=== PATIENT | male | born 1950 | race Caucasian/White ===

== ENCOUNTER → 2019-10-27 09:25 | Outpatient (CLI) | payer MEDICARE, SELFPAY ==
--- NOTE | ~2019-10-27 | CT_ITS ---
EXAMINATION: CT brain wo con EXAM DATE: 10/27/2019 09:43 INDICATION: Frequent falls. Dizziness. TECHNIQUE: Spiral CT of the head was performed without contrast. Axial, coronal and sagittal images were reviewed. The dose-length product (DLP) for this examination was 674.51 mGy-cm. The exposure w as tailored according to patient size, and iterative reconstruction (ASIR) was used as additional dos e reduction technique. Comparison is made to prior examination from 04/06/2018. FINDINGS: There is no acute intraparenchymal hemorrhage. No evidence of intraparenchymal brain mass lesion. No evidence of acute infarction. Please note that initial head CT has limited sensitivity f or small or acute infarctions. There is mild periventricular and subcortical hypodensity, nonspecific but probably related to small vessel ischemic disease. There is moderate prominence of the sulci a nd ventricles related to cerebral atrophy. There is intracranial carotid arteriosclerosis. There a re no extra-axial collections. There is no mass effect or midline shift. The orbits are unremarkabl e. Soft tissue is unremarkable. The visualized sinuses and mastoid air cells are well aerated. IMPRESSION: 1. No acute intracranial findings. 2. Chronic age related findings. Reviewed, dictated and finalized at location B.
== END ==
DX: R29.6 Repeated falls (principal); R42 Dizziness and giddiness
CPT/HCPCS: 70450

== ENCOUNTER 2020-05-02 08:00 | Outpatient (RCR) | payer MEDICARE, SELFPAY ==
--- NOTE | 2020-04-05 15:06 | PTOPEVAL ---
Thank you for referring Shaun Magallanes to [facility].? The patient is scheduled to be seen for therapy?2 x/week for 6 weeks. Please review, sign, date and return this plan of care СВЕТЛАНА. I agree with and certify that the following plan of care is medically necessary. Referring Physician Date Attending Provider: Jyotsna Weber Referring Provider: Jyotsna Weber *PT Outpatient Evaluation Start: 04/05/20 13:56 Freq: Status: Active Protocol: Document 04/05/20 13:58 SANJUANA (Rec: 04/05/20 15:01 CAP [id number]) Therapy Assessment Status Assessment Status Assessment Status Evaluation Outpatient Past Medical History Past Medical History Source of Past Medical History Patient,Recalled from Previous Visit, Confirmed with Patient /Family Neurological History Hx Neurological Disorders No Significant History Respiratory History Hx Sleep Apnea Yes: mild no CPAP Genitourinary History Hx Benign Prostatic Hyperplasia Yes Musculoskeletal History Hx Arthritis Yes Hx Orthopedic Surgery Yes: left knee arthroscopic for meniscus, right knee arthroscopic surgery Hx Other Musculoskeletal Disorders Yes: stem cell injection Endocrine History Hx Endocrine Disorders No Significant History Evaluation Information Problem Diagnosis ovidio knee OA Cause chronic Additional Evaluation Detail Stem cell injection both knees 2 yrs ago Subjective Information States his knee pain has Query Text:As Reported By Patient/ progressed in the past 3 Family months. He has increased pain and difficulty with transfers. He does have difficulty with negotiating steps. He is able to walk with min restriction. He use a walker for assisting in/out of the tub. Does not use the walker or cane normally. After the injections he was walking on the TM for 15' and riding a bike. He has not been since COVID. Prior Level of Function Home Setting Home Type House,Multiple Levels Environmental Barriers Stairs, Greater than 4,Stairs, Threshold Mobility Assistive Devices (Used Last 3 Cane,Walker, Standard,Walker, Months) Wheeled Comments Additional Prior Level of Function 15 steps to basemetnt Comments Pain A
--- NOTE | 2020-04-11 12:43 | PCPTNOTE ---
Patient called & cancelled scheduled appointment this date due to not feeling well.
--- NOTE | 2020-05-02 09:14 | PTOPEVAL ---
Thank you for referring Shaun Magallanes to [facility].?Pt has been seen for 7 therapy visits from 04/05/20 to 05/02/20 to address impairments related to knee pain. He demonstrates improved leg strength, improved knee range, improved functional mobility. He demonstrates independence with his home exercise program at this time. He has achieved his therapy goals at this time. He has reached maximal potential with skilled therapy services at this time. DC skilled therapy services at this time. Please review, sign, date and return this discharge note СВЕТЛАНА. I agree with and certify that the following plan of care is medically necessary. Referring Physician Date Attending Provider: Jyotsna Weber Referring Provider: Jyotsna Weber Physical Therapy Progress Note Problem Diagnosis ovidio knee OA Cause chronic Additional Evaluation Detail Stem cell injection both knees 2 yrs ago Subjective Information He reports improved knee pain Query Text:As Reported By Patient/ at rest and with mobility task Family . States he is walking more and performing the steps 2x/ day at home with less difficulty. He is able to get out the chair or low surface better. He is walking outside at least 1-2 blocks with uneven surface. Denied LOB at home with task. Pain Assessment Left Knee(s) Reported Pain Level 0 Pain Description Aching Lowest Pain Intensity 0 Greatest Pain Intensity 3 Right Knee(s) Reported Pain Level 0 Greatest Pain Intensity 0 Lower Extremity Range of Motion Left Knee Flexion Range of Motion - Active 110 Knee Extension Range of Motion - Active -2 Query Text: Knee Range of Motion Limitations Pain Right Knee Flexion Range of Motion - Active 127 Knee Extension Range of Motion - Passive -2 Lower Extremity Strength Right Hip Flexion Strength 4+ Good + Hip Extension Strength 4+ Good + Hip Abduction Strength 3+ Fair + Left Hip Flexion Strength 4+ Good + Hip Extension Strength 4+ Good + Hip Abduction Strength 3+ Fair + Knee Strength Left Knee Flexion Strength 4+ Good + Knee Extension Strength 4+ Good + Right Knee Flexion Strength 4+ Good + Knee Extension Strength 4+ Good + Balance Assessment DAHL Balance Evaluation Total Score (48/56 points) Comments SLS: right 3 sec, left 2 sec Timed Up and Go Test (TUG) (Seconds) 19 Assistive Devices None 5 Time Sit to Stand Time in Seconds 39 5 Time Sit to Stand Comments with UE support, slow movement
== END 2020-05-02 12:40 | disposition home or self-care (01) ==
LOC: ANHPT 08:00
DX: M17.0 Bilateral primary osteoarthritis of knee (principal)
CPT/HCPCS: 97110; 97112; 97116; 97162; 97530

== ENCOUNTER 2020-12-18 12:04 | Outpatient (RCR) | payer MEDICARE, SELFPAY ==
--- NOTE | 2020-12-18 13:15 | PTOPEVAL ---
PHYSICAL THERAPY EVALUATION AND PLAN OF CARE Thank you for referring Shaun Magallanes to [facility].? The patient is scheduled to be seen for therapy 1x/week for 5 weeks. Please review, sign, date and return this plan of care СВЕТЛАНА. I agree with and certify that the following plan of care is medically necessary. Referring Physician Date Evaluation Outpatient Past Medical History Neurological History Hx Neurological Disorders No Significant History Respiratory History Hx Sleep Apnea Yes: mild no CPAP Genitourinary History Hx Benign Prostatic Hyperplasia Yes Musculoskeletal History Hx Arthritis Yes Hx Orthopedic Surgery Yes: left knee arthroscopic for meniscus, right knee arthroscopic surgery Hx Other Musculoskeletal Disorders Yes: stem cell injection Diagnosis gait disorder, frequent falls Onset ongoing Subjective Information Reports that he fell 3 weeks Query Text:As Reported By Patient/ ago. He has a history of Family frequent falls. Reports that after the fall he was experiencing a significaint increase in knee pain. He notes that he is not quite back to baseline yet, but he is feeling better overall. Uses his walker at night and uses it next to the bathtub to assist with balance when drying off and getting dressed Self Report Pain Assessment Bilateral Knee(s) Reported Pain Level 1 Pain Description Aching Greatest Pain Intensity 6 Pain Score Pain Score 1: Self Report Interventions Used Interventions Used By Clinicians Exercise Lower Extremity Muscle Strength Testing Hip Strength Bilateral Hip Flexion Strength 5 Normal Hip Extension Strength 3 Fair Hip Abduction Strength 3 Fair Knee Strength Bilateral Knee Flexion Strength 4+ Good + Knee Extension Strength 4+ Good + Ankle Strength Bilateral Ankle Dorsiflexion Strength 5 Normal Balance Assessment Meyers Balance Assessment Sitting to Standing Several Tries w/Hands Unsupported Stance Ability Supervision- 2 minutes Sitting Unsupported, Feet on Floor Safely- 2 minutes Standing to Sitting Assist, Control w/Hands Transfer Ability Safely, Hand Use Unsupported Stance- Eyes Closed Supervision, 10 seconds Unsupported Stance- Feet Together Independent, 1 minute Reaching Forward while Standing Safely, 5 inches wardrobe supervisor Object From Floor Supervision Look Behind Shoulder - Standing
--- NOTE | 2020-12-31 08:06 | PCPTNOTE ---
PHYSICAL THERAPY DISCHARGE NOTE Patient:Shaun Magallanes Date of :1950 Patient called and cancelled his appointments due to being admitted for a roasterman hospital stay, therefore (he/she) will be discharged at this time. Patient?s initial visit was on 12/18/2020 had 1 visits. Thank you for referring this patient to [facility]. Please review, sign, date and return this discharge summary СВЕТЛАНА. I have been updated about the patient's current status and I agree with discharge from the above service at this time. Referring Physician Date
== END 2020-12-31 15:18 | disposition home or self-care (01) ==
LOC: ANHPT 12:04
DX: R26.9 Unspecified abnormalities of gait and mobility (principal); R29.6 Repeated falls
CPT/HCPCS: 97162

== ENCOUNTER 2021-09-05 09:18 | Emergency (ER) | payer MEDICARE, SELFPAY ==
--- NOTE | ~2021-09-05 | CT_ITS ---
EXAMINATION: CT brain wo con DATE: 09/05/2021 09:45 INDICATION: Status post fall. Laceration to the liver. TECHNIQUE: Computed tomography (CT) of the head was performed without intravenous contrast. The dose- length product was 605.33 mGy-cm. Automated exposure control and iterative reconstruction technique w ere employed. COMPARISON: CT dated 10/27/2019 FINDINGS: No acute intracranial hemorrhage, infarction, mass or mass effect. No ventriculomegaly or m idline shift. Basilar cisterns are patent. There is intracranial atherosclerosis. There is mild mucos al thickening of the paranasal sinuses. Midline sagittal images are unremarkable. No depressed skull fractures. There are scattered mild periventricular and subcortical white matter changes, most likely related to small vessel ischemic disease (microangiopathy). IMPRESSION: 1. No acute intracranial abnormality. 2: Chronic age-related findings. Reviewed, dictated and finalized at location A.
[2021-09-05 09:23] VITALS: BP 146/86; PULSE 116; RESP 16; TEMP 36.5; O2SAT 98
--- NOTE | 2021-09-05 09:30 | PC.NURSE ---
per YELENA Bashir via verbal order read-back, apply LET to lip.
[2021-09-05] MEDS: LIDOCAINE, EPINEPHRINE, TETRACAINE VISCOUS SOLN 3 ML (09:37)
--- NOTE | 2021-09-05 09:40 | ED.WOUNDLAC ---
HPI - Wound/Laceration General Chief Complaint: Wound/Laceration Stated Complaint: fall, cut lip Time Seen by Provider: 09/05/21 09:29 Source: patient History of Present Illness HPI narrative: Patient presents with a lip laceration. Patient ports he is going to the restroom last night when his knees gave out and he fell and struck his face on the ground. Reports he has bad knees and they will occasionally give out but is usually able to catch himself. He denies any prodrome prior to his fall such as chest pain lightheadedness dizziness or shortness of breath. Denies any loss of consciousness with use of blood thinners. Denies any changes in vision fractured teeth focal numbness or weakness. Monitor symptoms at home but then when he looked in the mirror this morning he noted a injury to his lip and thought maybe he needed stitches so he came to the ER. Patient preorts up-to-date on his tetanus Related Data Allergies Allergy/AdvReac Type Severity Reaction Status Date / Time naproxen Allergy Unknown SWELLING,FL Verified 09/05/21 09:23 USHING Review of Systems Review of Systems: CONSTITUTIONAL: Denies fever, chills, or sweats. EYES: Denies visual changes, redness, or discharge. ENT: Denies rhinorrhea, congestion, sore throat, or otalgia. CARDIOVASCULAR: Denies chest pain, palpitations, or edema. RESPIRATORY: Denies cough or dyspnea. GASTROINTESTINAL: Denies abdominal pain, nausea, vomiting, or diarrhea. GENITOURINARY: Denies dysuria or hematuria. SKIN: Denies rash or itching. MUSCULOSKELETAL: Denies back pain, joint pain, or myalgia. NEUROLOGIC: Denies headache, numbness, dizziness, or weakness. PSYCHIATRIC: Denies anxiety or depression. All systems reviewed & are unremarkable except as noted in HPI and below PMFSH Past Medical History Medical History (Updated 09/05/21 @ 11:29 by Misael Bashir MD) Hypertension Social History Social History (Updated 09/05/21 @ 09:41 by Misael Bashir MD) Substance use: never Exam Narrative: GENERAL: Well-appearing, well-nourished, and in no acute distress. HEAD: Normocephali EYES: PERRLA and EOMI. ENT: Nares clear, no rhinorrhea or epistaxis. Mucous membranes moist. Laceration to the mucosal membrane of the lower lip midline there is no involvement of the vermilion border no fractured teeth appreciated no focal bony tenderness on the face other than lip laceration no open or draining wounds NECK: Supple. No masses. No JVD EXTREMITIES: Normal range of motion. No edema. SKIN: Warm, dry, no rash. NEURO: No focal deficits. Alert and oriented x3. PSYCH: Normal mood and affect. Course Reevaluation(s) Reevaluation #1: Patient resting calmly results and plan reviewed with patient. Patient is comfortable outpatient plan. Date: 09/05/21 Time: 11:28 Vital Signs Vital signs: Vital Signs Temperature 36.5 C 09/05/21 09:23 Pulse Rate 116 H 09/05/21 09:23 Respiratory Rate 16 09/05/21 09:23 Blood Pressure 146/86 H 09/05/21 09:23 Pulse Oximetry 98 09/05/21 09:23 Temperature 36.5 C 09/05/21 09:23 Pulse Rate 116 H 09/05/21 09:23 Respiratory Rate 16 09/05/21 09:23 Blood Pressure 146/86 H 09/05/21 09:23 Pulse Oximetry 98 09/05/21 09:23 Procedures Laceration Laceration 1: Date: 09/05/21 Time: 11:21 Site: lip Size (cm): 1 Description: linear and clean Depth: simple, single layer Local Anesthetic: none Pre-repair: wound explored ====== Skin Level ====== Skin layer closed with: other (chromic gut) Size (cm): 5-0 Number of sutures: 1 Technique: simple, interrupted ====== Subcutaneous Layer ====== ====== Muscle Layer ====== ====== Tendon Layer ====== MDM - Wound/Laceration MDM Narrative Medical decision making narrative: H&P as above, vss, pt looks clinically well, exam isolated laceration on the lip not involving vermilion borders no
--- NOTE | 2021-09-05 09:43 | PC.NURSE ---
Patient to CT
== END 2021-09-05 11:40 | disposition home or self-care (01) ==
PROVIDERS: Emergency Provider Emergency Medicine
DX: S01.511A Laceration without foreign body of lip, initial encounter (principal); I10 Essential (primary) hypertension; W18.39XA Other fall on same level, initial encounter
CPT/HCPCS: 12011; 70450; 99284

== ENCOUNTER → 2022-02-26 12:20 | Outpatient (CLI) | payer MEDICARE, SELFPAY ==
--- NOTE | ~2022-02-26 | MR_ITS ---
MRI of the brain Clinical History: Disorientation Technique: Axial and sagittal T1-weighted images were acquired. These were followed by axial T2-weigh brandin, diffusion weighted, gradient, and FLAIR images. Following intravenous administration of 20 cc Mu ltiHance gadolinium, T1-weighted fat-sat imaging was performed in the axial and coronal planes. Findings: There is no acute infarct, intracranial hemorrhage, or mass lesion. There are mild chronic white matter changes in the periventricular white matter bilaterally. Ventricles and subarachnoid spaces are prominent. Orbits are unremarkable. Paranasal sinuses and mast oid air cells are clear. Major intracranial flow voids appear intact. Sagittal midline structures are intact. No abnormal postcontrast enhancement identified. IMPRESSION: Minimal chronic white matter changes, otherwise unremarkable exam. Reviewed, dictated and finalized at [facility]. E [employer]
== END ==
DX: R26.9 Unspecified abnormalities of gait and mobility (principal)
CPT/HCPCS: 70553; A9577

== ENCOUNTER 2022-05-22 07:34 | Outpatient (CLI) | payer MEDICARE, SELFPAY ==
[2022-05-22 10:04] LABS: Urine Cotinine NEGATIVE
== END 2022-05-22 07:35 | disposition home or self-care (01) ==
PROVIDERS: Visit Provider Orthopaedic Surgery
DX: Z01.818 Encounter for other preprocedural examination (principal); M17.11 Unilateral primary osteoarthritis, right knee
CPT/HCPCS: 80307; 86850; 86900; 86901; 87081

== ENCOUNTER 2022-06-03 14:36 | Inpatient (IN) | payer MEDICARE, SELFPAY ==
--- NOTE | 2022-05-22 08:16 | PC.NURSE ---
Report to the Outpatient Waiting Room, entrance under the green pavilion located off [facility], at time __0600 on datE__06/02/22 . Planned Procedure Time: __729 . Time changes happen often and if your time is changed the preop area will call you the afternoon before. - You and your visitor will be asked to self-screen and do not enter if you have any COVID symptoms. - Only one visitor is requested with a max of two and NO children visitors are allowed at this time. - The patient visitor may be requested to leave or wait in car when not with patient due to distancing restrictions. - A mask is optional within the hospital at this time. Patients may have clear liquids (water, carbonated beverages, clear teas, apple juice) until 3 hours prior to surgery with a maximum of 20 ounces. - No food from midnight until time of surgery - Infants may have breast milk until 4 hours before surgery, formula 6 hours prior to surgery. - Children will be allowed to drink immediately following surgery. If applicable, please bring a bottle or sippy cup to assist with drinking. Juice, water, soda, and popsicles are readily available. For infants on formula, please bring formula the day of surgery. Pacifiers are allowed. Take the following medications with a SIP of water the morning of surgery: ____AMLODIPINE,MEMANTINE DO NOT STOP ANY OF YOUR OTHER PRESCRIPTION MEDICATIONS PRIOR TO SURGERY ?EXCEPT THE FOLLOWING Medications to discontinue per physician ALL VITAMINS AND SUPPLEMENTS 3 DAYS PRE OP. LAST DOSE 05/29/22 Please no make-up, nail swedish, hairspray, perfume, deodorant, or body powder the day of surgery. No jewelry (including any body piercings) or valuables the day of surgery, leave them at home. Please take a shower or bath the night before, or the morning of, surgery with an antibacterial soap. Wear comfortable, loose fitting clothing. Children are encouraged to wear pajamas. - Jewelry must be removed prior to entering the operating room. Rings and piercings that are not removed may be cut off. - The hospital will not accept responsibility for valuables. - Please leave all valuables, including medications, at home the day of surgery. If you are going home after surgery, a licensed day haul or farm charter bus driver must drive you home. - NO public transportation without another adult if you receive anesthesia. - We recommend that an adult stay with you for 24 hours following discharge. - We also recommend that you do not drive, make important decision, drink alcoholic beverages, or take any drugs that were not prescribed by your health care provider for at least 24 hours after your discharge time. Follow any additional instructions given to you from your surgeon. If you or anyone in your household have experienced Covid symptoms in the past week, please notify your surgeon or the nurse liaison at the phone number below for possible testing. VERBAL AND WRITTEN instructions given to __PATIENT and asked if any additional questions and then verbalized understanding. Patient advised to call surgeon office or pre surgery nurse liaison [phone] if any additional questions.
[2022-05-22 08:43] VITALS: BP 127/83; PULSE 87; RESP 18; TEMP 36.7; O2SAT 99; BMI 26.9
[2022-06-02] VITALS (14 sets, daily range): BP systolic 106–139; BP diastolic 57–91; PULSE 80–121; RESP 11–17; TEMP 36.2–36.8; O2SAT 95–100; BMI 25.7
--- NOTE | 2022-06-02 06:54 | WPDANESEPPF ---
Anes - Initial Pre Proc Eval Procedure: Operation Date: 06/02/22 07:30 Proposed Procedures p Right Total Knee Arthroplasty - Magno Arrington MD Date/Time: 06/02/22 06:54 Surgeon: Magno Arrington MD Pre Op Diagnosis: Oa right knee Patient Data Age: 71 Gender: M Height: 1.93 m Weight: 100.3 kg Last Vital Signs Temp 36.7 C 05/22/22 08:43 Pulse 87 05/22/22 08:43 Resp 18 05/22/22 08:43 BP 127/83 05/22/22 08:43 Pulse Ox 99 05/22/22 08:43 O2 Del Method Room Air 05/22/22 08:43 Allergies Allergy/AdvReac Type Severity Reaction Status Date / Time naproxen Allergy Unknown SWELLING,FL Verified 06/02/22 06:38 USHING Home Medications Medication Instructions Recorded Confirmed Type B6 0.85 mg-folic 200 1 tablet PO DAILY 11/20/21 05/27/22 History [id number]-kgowswppampl oral chewable tablet (Neuriva Plus) alfuzosin 10 mg tablet,extended 10 mg PO DAILY 11/20/21 05/27/22 History release 24 hr allopurinol 300 mg tablet 150 mg PO DAILY 11/20/21 06/02/22 History amiloride 5 mg tablet 5 mg PO DAILY 11/20/21 06/02/22 History amlodipine 2.5 mg tablet 2.5 mg PO DAILY 11/20/21 06/02/22 History ascorbic acid (vitamin C) 1,000 mg 1 g PO DAILY 11/20/21 05/27/22 History capsule cholecalciferol (vitamin D3) 25 25 mcg PO DAILY 11/20/21 05/27/22 History mcg (1,000 unit) capsule diazepam 10 mg tablet 10 mg PO TID PRN Insomnia 11/20/21 06/02/22 History ibuprofen 200 mg capsule 200 mg PO Q6H PRN Pain 11/20/21 06/02/22 History mecobalamin (vitamin B12) 1,000 1,000 mcg PO DAILY 11/20/21 05/27/22 History mcg lozenges montelukast 10 mg tablet 10 mg PO DAILY 11/20/21 05/27/22 History nortriptyline 25 mg capsule 25 mg PO DAILY 11/20/21 06/02/22 History rosuvastatin 20 mg tablet 20 mg PO DAILY 11/20/21 06/02/22 History vitamin E (dl, acetate) 180 mg 180 mg PO DAILY 11/20/21 05/27/22 History (400 unit) capsule memantine 5 mg tablet 5 mg PO QAM 04/24/22 06/02/22 History turmeric 400 mg capsule 400 mg PO DAILY 04/24/22 05/27/22 History zinc gluconate 50 mg tablet 50 mg PO DAILY 04/24/22 05/27/22 History esomeprazole magnesium 20 mg 20 mg PO PRN PRN Heartburn 05/22/22 05/27/22 History capsule,delayed release (Nexium) rivaroxaban 10 mg tablet (Xarelto) 10 mg PO DAILY 14 days #14 tabs 05/27/22 05/27/22 Rx Patient hx anesthesia problems: none Family hx anesthesia problems: none Results Review: All pre-operative results and documents have been reviewed as part of the pre-operative evaluation. [facility] Past Medical History Medical History (Updated 06/02/22 @ 07:05 by Chandana Raya DO) Degenerative arthritis of knee, bilateral Hyperlipidemia Hypertension Surgical History Surgical History History of hernia repair Family History Family History Father Cancer Mother Cancer Sibling Cancer Social History Social History Years smoked: 55 Smoking status: Former smoker Tobacco type: cigarettes Smoking end date: 04/20/22 Additional smoking assessment comments: DENIES ANY FORM OF TOBACCO USE Alcohol intake: current Substance use: never Living arrangements: with family Spiritual care concerns: No Anes - Eval Final PreProcedure Day of Procedure 06/02/22 06:54 Patient weight: overweight Heart: regular rate and rhythm Lungs: clear to auscultation Airway: Mallampati scale class II Neurological: alert and oriented Last oral intake: >/= 8 hours ASA classification: III Emergent: no Anesthetic plan: proceed Anesthesia type and monitoring: regional spinal and standard monitoring Results Review: All pre-operative results and documents have been reviewed as part of the pre-operative evaluation. Informed Consent: The patient's anesthetic plan and its attendant risks and benefits w
[2022-06-02] MEDS: ACETAMINOPHEN 500 MG TABLET 1000 MG PO (06:56)
[2022-06-02] MEDS: LACTATED RINGERS 1,000 ML 30 ML IV CONT ×2 (07:00→10:08)
[2022-06-02] MEDS: TRANEXAMIC ACID 1,000MG/ISO100 1,000 MG/100 ML BAG 200 MG IVPB (07:05)
--- NOTE | 2022-06-02 07:20 | WPDHPUPDATE1 ---
History and Physical Update Update Date/Time: 06/02/22 07:20 History and Physical has been reviewed, including an updated exam of the patient. There are NO changes in the patient's condition. Risks, benefits, and alternatives have been discussed and questions answered. Patient agrees to proceed with procedure.
--- NOTE | 2022-06-02 07:30 | WPDANESPNB ---
Anes - Peripheral Nerve Block Date/Time: 06/02/22 07:30 I have discussed with the patient/family/POA the placement of a peripheral nerve block for post-operative pain management, including associated risks, benefits, complications, and side effects. Alternative methods of post-operative analgesia were detailed. Questions were solicited and answers provided to the satisfaction of the patient/family/POA. Time-Out: A pre-procedural Time-Out was completed immediately before starting the procedure and confirmed: Patient Identification, Site, Procedure, Patient Position and the Availability of Requisite Equipment. Clinical Indications: Acute post-operative pain management requested by the operative surgeon. Nerve Block Insertion Note Anes-nerve block: adductor canal right Patient position: supine Skin prep: chlorhexidine Needle: 22 gauge, stimulating, insulated echogenic needle. Needle length: 80 mm Technique: ultrasound Injectate: bupivacaine 0.5% with epi 5 mcg/ml (30cc - no epi) Observations: tolerated well Complications: none Procedure start time:: 724 Procedure end time:: 727
[2022-06-02] MEDS: ceFAZolin 2 GM/D5W 50 ML 2 GM/50 ML BAG IVPB ×3 (07:33→21:57)
[2022-06-02] MEDS: GENTAMICIN BONE CEMENT REFOBACIN 1 EACH TOPICAL (08:24)
[2022-06-02] MEDS: ceFAZolin SODIUM 1 GM VIAL IV PUSH (09:06)
--- NOTE | 2022-06-02 09:59 | W.PM.PROC2 ---
Procedure Note - Detailed Date of Procedure 06/02/22 Pre-op Diagnosis Oa right knee Post-op Diagnosis Same Procedure Performed Right total knee replacement Surgeon Magno Arrington MD [employer] Jinny Rouse Anesthesia Regional and Spinal Description of Procedure The patient was identified and proper site identified. In the preop holding area the anesthesia team performed a right lower extremity sub sartorial block after which the patient was taken to the operating room and transferred to the OR table positioning supine taking care to pad the torso and extremities. After administration of a spinal anesthetic, a nonsterile tourniquet was placed high on the right thigh. The right lower extremity was prepped and draped in the usual sterile fashion. The extremity was exsanguinated and with the knee flexed tourniquet was inflated to 300 mmHg remaining up for approximately 60 minutes. An anterior midline incision was made and a modified medial parapatellar approach was used. Infra and suprapatellar fat pads were excised. Patella was resected leaving 15 mm thickness and prepared for the 34 round three peg component. Using the intramedullary guide the distal femur was cut in the proper orientation for the size 75 femoral component. Using the extramedullary guide the tibia was cut perpendicular to the long axis protecting collateral ligaments and popliteal structures. It was sized to a 83. Flexion and extension gaps were balanced. Trial reduction was undertaken and the weight-bearing line was noted to passed through the center of the joint. Proximal tibia was drilled and punched in the proper orientation for the real component. Trial components were removed. The bone surfaces were washed with pulsatile lavage and dried. The real components were cemented simultaneously. The knee was held in extension and the patella held clamped until the cement had cured. Excess cement was removed from the joint. After trialing it was determined that the 12 mm insert gave full range of motion from 0-120 degrees of flexion and the patella tracked in the femoral groove with no lift-off. After final lavage the joint the real size 12 insert was placed and secured with a locking bar. A Betadine and saline wash was placed into the wound and allowed to sit for approximately 3 minutes and then evacuated. Periarticular tissues were infiltrated with 60 cc of the arthroplasty solution. Surgicel powder was applied into the wound during the closure. The extensor mechanism was repaired with #2 Vicryl suture and 0 looped PDS suture. Subcu was reapproximated with 3-0 Monocryl, 2-0 Quill and tissue adhesive for the skin. A sterile dressing was applied. He tolerated the procedure well, was awakened and extubated, transferred to the bed and was taken to recovery area in stable condition. There were no known intraoperative complications. Perioperative antibiotics were administered. Estimated Blood Loss 150 Tourniquet Time 60 Drains No Packing No Pathology None sent Complications No immediate complications Condition Stable Disposition PACU [facility] Billing Surgery - Charge Forward: Surgery Billing ([id number])
--- NOTE | 2022-06-02 12:10 | ADMGEN ---
This patient, Shaun Magallanes, was admitted to 3 Med Surg Room 328-01 @ 1130. Patient/family oriented to hospital policies and general routines including ID bracelet, bed and alarms, visiting hours, pain management, procedures, bathroom and other care routines, personal items, smoking policy, room service/diet, and visiting hours. Information on how to activate the Rapid Response Team has been discussed. Patient/Family are encouraged to report perceived risks to care and to ask questions if they do not understand what they are told or what they should do.
--- NOTE | 2022-06-02 13:25 | WPDCN ---
Assessment and Plan Assessment and plan (1) Osteoarthritis of right knee: Code(s): M17.11 - Unilateral primary osteoarthritis, right knee Status: Acute Assessment and Plan: Postoperative day 0 status post right total knee arthroplasty. Wound care, pain control, DVT prophylaxis deferred to Dr. Arrington. (2) Hypertension: Code(s): I10 - Essential (primary) hypertension Status: Acute Assessment and Plan: Blood pressures were reviewed and they have been stable postoperatively. Continue antihypertensives and monitor daily. (3) Hyperlipidemia: Code(s): E78.5 - Hyperlipidemia, unspecified Status: Acute Assessment and Plan: Continue statin and check LFTs in a.m. (4) Benign prostatic hyperplasia: Code(s): N40.0 - Benign prostatic hyperplasia without lower urinary tract symptoms Status: Acute Assessment and Plan: Patient has not voided since Lange catheter was removed. Bladder scan to ensure he is not retaining urine.. Continue alfuzosin. (5) Gastroesophageal reflux disease: Code(s): K21.9 - Gastro-esophageal reflux disease without esophagitis Status: Acute Assessment and Plan: No acute issues. Continue PPI. (6) History of deep venous thrombosis: Code(s): Z86.718 - Personal history of other venous thrombosis and embolism Status: Acute Assessment and Plan: Will need aggressive DVT prophylaxis postoperatively. Plan Thank you for allowing us to participate in this patient's care. Please do not hesitate to contact us with any questions. HPI Data of Consult Date/Time: 06/02/22 13:25 Requesting Physician: Magno Arrington MD Consult Narrative Reason for consult: Postoperative medical management. Narrative: This is a 71-year-old male with history of left lower extremity DVT hypertension, hyperlipidemia, gastroesophageal reflux disease, benign prostatic hyperplasia, and osteoarthritis whom the hospitalist service has been consulted for management of his medical conditions postoperatively. Patient provides the following history. He has had longstanding pain in his right knee not amenable to conservative outpatient treatment and he elected for replacement today. His surgery was performed under regional and spinal anesthesia with no immediate complications documented an estimated blood loss of 150 mL. Postoperatively he has done well with physical therapy and has gotten up to the chair and ambulated to the bathroom with a walker. He continues to have a deep aching pain in that right knee which is worse with movement though it has been tolerable. Lange catheter was removed this afternoon and he has not urinated since that time though he initially had they were urged. He denies fever, chills, sweats, chest pain, shortness a breath, nausea, and vomiting. No paresthesias, skin color, or temperature changes distal to the surgical site. Review of Systems Review of Systems: Twelve systems were reviewed and are negative except for as per HPI. [facility] Past Medical History Medical History (Updated 06/02/22 @ 20:33 by Tana Montalvo PA-C) Benign prostatic hyperplasia Deep vein thrombosis of left lower extremity (2016) Degenerative arthritis of knee, bilateral Gastroesophageal reflux disease Gout Hyperlipidemia Hypertension Kidney stones Obstructive sleep apnea Mild sleep apnea. No longer using CPAP after weight loss. Short-term memory loss Surgical History Surgical History (Updated 06/02/22 @ 13:30 by Tana Montalvo PA-C) History of arthroscopy of right knee (2012) History of bilateral inguinal hernia repair History of meniscectomy of left knee History of tonsillectomy (1950) History of umbilical hernia repair Family History Family History Father Cancer Mother Cancer Sibling Cancer Social History Social History (Updated
[2022-06-02] MEDS: HYDROcodone/acetaminophen (*CRX) 5-325 MG TABLET 1 TAB PO (13:48)
[2022-06-02] MEDS: SODIUM CHLORIDE 0.9% IV 1,000 ML 125 ML IV CONT (13:50)
[2022-06-02] MEDS: HYDROcodone/acetaminophen (*CRX) 5-325 MG TABLET 2 TAB PO ×2 (15:49→21:43)
[2022-06-02] MEDS: NORTRIPTYLINE HCL 25 MG CAPSULE PO (21:43)
[2022-06-02] MEDS: DONEPEZIL HCL 5 MG TABLET PO (21:43)
[2022-06-02] MEDS: ROSUVASTATIN 10 MG TABLET 20 MG PO (21:43)
[2022-06-03] VITALS (8 sets, daily range): BP systolic 80–138; BP diastolic 52–90; PULSE 113–135; RESP 14–19; TEMP 36.1–37.4; O2SAT 94–99
--- NOTE | ~2022-06-03 | XR_ITS ---
EXAMINATION: XR_[id number]_CR DATE: 06/02/2022 10:21 INDICATION: Total right knee arthroplasty. Postop. TECHNIQUE: 2 views of right knee were obtained. COMPARISON: Right knee radiographs 11/20/2021 FINDINGS: There is a total right knee arthroplasty with patellar resurfacing in near-anatomic alignme nt. No fracture. There is gas in the knee joint and soft tissues, consistent with recent surgery. IMPRESSION: 1. Total right knee arthroplasty in near-anatomic alignment. Reviewed, dictated and finalized at location A.
--- NOTE | ~2022-06-03 | CT_ITS ---
EXAMINATION: CT brain wo con DATE: 06/08/2022 10:08 INDICATION: Transient alteration of awareness. TECHNIQUE: Computed tomography (CT) of the head was performed without intravenous contrast. The mA wa s adjusted according to patient size. Iterative reconstruction technique was employed. The dose-lengt h product was 681.00 mGy-cm. COMPARISON: Head CT 09/05/2021 FINDINGS: There is no intracranial hemorrhage, acute infarction, or abnormal intracranial mass lesion . There are scattered areas of low attenuation in the cerebral white matter, which is within normal l imits for the patient's age. The ventricles are normal in size. The orbits are normal. There is mild mucosal thickening in the ethmoid sinuses. The mastoid air cells are normal. IMPRESSION: 1. Normal aging brain. Reviewed, dictated and finalized at location A. IMPRESSION: 1. Normal aging brain.
--- NOTE | ~2022-06-03 | CT_ITS ---
EXAMINATION: CTA abd aorta runoff DATE: 06/05/2022 13:07 INDICATION: Right lower extremity pain, postop from right knee arthroplasty TECHNIQUE: Computed tomographic angiography (CTA) of the abdomen, pelvis, and both lower extremities was performed with 150 mL Omnipaque-350 intravenous contrast. The dose-length product (DLP) was 1821. 19 mGy-cm. Maximum intensity projection 3D-reconstructions of the arteries were created by the techno logist on a separate workstation. Automated exposure control and iterative reconstruction technique w ere employed. COMPARISON: None. FINDINGS: ABDOMINAL AORTA AND ITS BRANCHES: There is no aneurysm or dissection of the abdominal aorta. The celiac axis, superior mesenteric arter y, and inferior mesenteric artery are unremarkable at their origins. There is mild calcified atherosc lerosis at the origin of the superficial femoral artery without hemodynamically significant stenosis. Single renal arteries are present bilaterally. PELVIC VASCULATURE: There is calcified atherosclerosis without hemodynamically significant stenosis in the internal iliac arteries and right external iliac artery. Pelvic vasculature is otherwise unremarkable. RIGHT LOWER EXTREMITY VASCULATURE: There is calcified atherosclerosis without hemodynamically significant stenosis in the distal femoral artery and the superficial femoral artery. Streak artifact from the arthroplasty obscures visualizat ion of the popliteal artery. The tibial peroneal trunk, posterior tibial artery, peroneal artery, and anterior tibial artery are normal. There is a three-vessel runoff at the ankle. LEFT LOWER EXTREMITY VASCULATURE: There is calcified atherosclerosis without hemodynamically significant stenosis in the distal femoral artery, the superficial femoral artery in the popliteal artery. Tibioperoneal trunk is normal. There is calcified atherosclerosis at the origins of the anterior and posterior tibial arteries without he modynamically significant stenosis. The peroneal artery is not visualized and is distal portion. Ther e is a two-vessel runoff at the ankle. ADDITIONAL FINDINGS: Minimal dependent atelectasis is present in the lung bases. The heart size is normal. There are trace pleural effusions. A small pericardial effusion is noted. Punctate calcifications in an otherwise no rmal spleen likely represent healed granulomatous disease. The liver, pancreas, and adrenal glands ar e normal. There are stones in the gallbladder which is mildly distended. The right kidney is unremark able. There is a 3 mm nonobstructing stone of the left kidney. No pathologically enlarged abdominal o r pelvic lymph nodes are identified. No free intraperitoneal gas or evidence of bowel obstruction. Co lonic diverticulosis is present without evidence of diverticulitis. Changes of bilateral inguinal her melanie repair are noted. There is a chronic compression fracture of L1. There are multiple foci of gas i n the extensor musculature of the right thigh. No intramuscular fluid collection is identified. IMPRESSION: 1. Incomplete opacification of the distal left peroneal artery, otherwise areas of mild atheroscleros is without hemodynamically significant stenosis. 2. Multiple foci of gas in the extensor musculature of the right thigh without focal abscess identifi ed, most consistent with recent surgery. Reviewed, dictated and finalized at location F. IMPRESSION: 1. Incomplete opacification of the distal left peroneal artery, otherwise areas of mild atherosclerosis without hemodynamically significant stenosis. 2. Multiple foci of gas in the extensor musculature of the right thigh without focal abscess identified, most consistent with recent surgery.
[2022-06-03] MEDS: ceFAZolin 2 GM/D5W 50 ML 2 GM/50 ML BAG IVPB (06:16)
[2022-06-03] MEDS: HYDROcodone/acetaminophen (*CRX) 5-325 MG TABLET 1 TAB PO ×3 (06:17→13:25)
[2022-06-03 06:39] LABS: Basophils Percent Auto 0.4 % (0.2-1.2); Hematocrit 31.2 % (42.0-52.0); Hemoglobin 10.6 g/dL (14.0-18.0); Immature Granulocyte Absolute 0.02 K/mm3 (0.00-0.031); Immature Granulocyte Percent A 0.4 % (0-0.5); Lymphocytes Absolute Auto 0.65 K/mm3 (0.9-3.2); Lymphocytes Percent Auto 12.4 % (18.3-44.2); Mean Corpuscular Hemoglobin 34.6 pg (26-34); Mean Platelet Volume 9.4 fl (7.4-10.4); Monocytes Absolute Auto 0.6 K/mm3 (0.1-0.6); Monocytes Percent Auto 11.2 % (2.6-8.5); Neutrophils Percent Auto 75.6 % (45.5-73.1); Platelet Count Result 205 k/mm3 (150-375); Red Blood Count 3.06 M/mm3 (4.6-6.20); Red Cell Distribution Width 13.2 % (11.5-14.5); White Blood Count 5.3 K/mm3 (4.5-10.0)
[2022-06-03 06:47] LABS: Alanine Aminotransferase 15 U/L (6-50); Albumin Level 3.5 g/dL (3.5-5.1); Alkaline Phosphatase 59 U/L (38-126); Anion Gap 7 mmol/L (8-16); Aspartate Amino Transferase 19 U/L (17-59); Bilirubin,Total 0.9 mg/dL (0.2-1.3); Blood Urea Nitrogen 14 mg/dL (9-20); Calcium 7.9 mg/dL (8.4-10.2); Carbon Dioxide 26 mmol/L (22-30); Chloride 102 mmol/L (98-107); Estimated CRCL calculation 79 ml/min; Estimated Glomerular Filt Rate > 60; Glucose 114 mg/dL (65-110); Magnesium 1.7 mg/dL (1.6-2.3); Potassium 3.5 mmol/L (3.4-5.0); Sodium 135 mmol/L (137-145)
--- NOTE | 2022-06-03 09:58 | P.PNAN_ITS ---
Anes - Prog Note Post-Op Date/Time: 06/03/22 09:58 Cardiovascular status: normal Respiratory status: normal Airway patency: baseline Mental status: baseline Post-Op hydration status: normal Vital Signs: Last Vital Signs Temp 36.7 C 06/03/22 05:08 Pulse 113 H 06/03/22 05:08 Resp 14 06/03/22 05:08 BP 126/84 06/03/22 05:08 Pulse Ox 94 06/03/22 05:08 O2 Del Method Room Air 06/02/22 20:00 O2 Flow Rate 4 06/02/22 10:07 Pain Score (VAS): 04/18 I/O: Intake & Output 06/02/22 06/03/22 06/03/22 23:59 07:59 15:59 Intake Total 690 300 Balance 690 300 Laboratory Tests 06/03/22 05:59 06/03/22 05:59 06/03/22 06/03/22 06/03/22 05:59 05:59 05:59 WBC 5.3 RBC 3.06 L Hgb 10.6 L Hct 31.2 L MCV 102.0 H MCH 34.6 H MCHC 34.0 RDW 13.2 Plt Count 205 MPV 9.4 Immature Gran % (Auto) 0.4 Neut % (Auto) 75.6 H Lymph % (Auto) 12.4 L [place] % (Auto) 11.2 H Eos % (Auto) 0.0 Baso % (Auto) 0.4 Lymph # (Auto) 0.65 L [place] # (Auto) 0.6 Eos # (Auto) 0.0 Baso # (Auto) 0.0 Abs Immat Gran (auto) 0.02 Absolute Neuts (auto) 4.0 Absolute Nucleated RBC 0.0 Nucleated RBC % 0.0 Sodium 135 L Potassium 3.5 Chloride 102 Carbon Dioxide 26 Anion Gap 7 L BUN 14 Creatinine 0.90 Estim Creat Clear Calc 79 Estimated GFR > 60 Glucose 114 H Calcium 7.9 L Magnesium 1.7 Cancelled Total Bilirubin 0.9 Cancelled Direct Bilirubin 0.0 Cancelled AST 19 Cancelled ALT 15 Cancelled Alkaline Phosphatase 59 Cancelled Total Protein 6.0 L Cancelled Albumin 3.5 Cancelled Post-procedural complaints: none Patient Feedback: Patient satisfied with anesthetic care.
[2022-06-03] MEDS: allopurinoL 150 MG TABLET PO (09:59)
[2022-06-03] MEDS: polyethylene glycoL 3350 17 GM POWD.PACK PO (09:59)
[2022-06-03] MEDS: VITAMIN E 400 UNIT CAPSULE PO (09:59)
[2022-06-03] MEDS: ASCORBIC ACID 500 MG TABLET 1000 MG PO (10:00)
[2022-06-03] MEDS: MEMANTINE 5 MG TABLET PO (10:00)
[2022-06-03] MEDS: RIVAROXABAN 10 MG TABLET PO (10:01)
[2022-06-03] MEDS: CHOLECALCIFEROL 1,000 UNITS TABLET 1000 UNITS PO (10:01)
[2022-06-03] MEDS: PANTOPRAZOLE 40 MG TABLET PO (10:01)
[2022-06-03] MEDS: SENNA/DOCUSATE SODIUM TABLET 2 TAB PO ×2 (10:01→17:12)
[2022-06-03] MEDS: CYANOCOBALAMIN 1,000 MCG TABLET 1000 MCG PO (10:01)
--- NOTE | 2022-06-03 11:20 | PCOTNOTE ---
Attempted, unable to be seen at this time due to hospitalist in room and requested therapy hold off until he has received a bolus of fluid. Will try back this afternoon.
--- NOTE | 2022-06-03 11:47 | PM.IMPN ---
Progress Note: A&P Assessment and Plan (1) Osteoarthritis of right knee: Code(s): M17.11 - Unilateral primary osteoarthritis, right knee Status: Resolved Assessment and Plan: Postoperative day 1 status post right total knee arthroplasty. Wound care, pain control, DVT prophylaxis deferred to Dr. Arrington. (2) Hypertension: Code(s): I10 - Essential (primary) hypertension Status: Acute Assessment and Plan: Patient with +orthostatic hypotension noted when getting up with therapy today. SBP dropped to 80-90s and patient is tachycardic HR 110-120s. Hold antihypertensives for now. Given 500 cc NS bolus and repeated orthostatics, that were still noted to be positive. Give additional 1L NS bolus and then start maintenance fluids NS@100 mL/hour. Check orthostatic vitals Qshift until stable. Consider KRISTIAN hose when appropriate per ortho (3) Hyperlipidemia: Code(s): E78.5 - Hyperlipidemia, unspecified Status: Chronic Assessment and Plan: Continue statin. LFTs stable. (4) Benign prostatic hyperplasia: Code(s): N40.0 - Benign prostatic hyperplasia without lower urinary tract symptoms Status: Chronic Assessment and Plan: With acute retention postop. Straight cathed x1 with -600 mL. Bladder scan Q6 and PRN. straight cath if >400 mL. Continue alfuzosin when blood pressure is improved, will change it to HS dosing to attempt to prevent orthostatic hypotension and next dose scheduled 06/04 at HS. (5) Gastroesophageal reflux disease: Code(s): K21.9 - Gastro-esophageal reflux disease without esophagitis Status: Chronic Assessment and Plan: Continue PPI and add PRN mylanta. (6) History of deep venous thrombosis: Code(s): Z86.718 - Personal history of other venous thrombosis and embolism Status: Chronic Assessment and Plan: DVT in 2017. Patient is on Xarelto postop. Plan Thank you for allowing us to participate in this patient's care. Please do not hesitate to contact us with any questions. Time Spent With Patient Time with patient: 25 - 35 minutes Subjective Date/time seen: 06/03/22 11:47 Interval history: Patient felt like he had to urinate but was unable to go on his own. He had to be straight cathed with 600 mL urine removed. Additionally, he felt dizzy with getting out of bed and SBP dropped to 90s per nursing. He feels better in bed. No chest pain, palpitations, SOB, abd pain, N/V or urinary spasm. He has pain to his right leg with some persistent numbness near his knee that is slowly improving after the nerve block from surgery. Review of Systems Review of Systems: All systems reviewed & are unremarkable except as noted in HPI and below Exam Narrative: General: no acute distress. Tired appearing. lying in bed. HEENT: Normocephalic. PERRL, EOMI. Sclera anicteric. Oral mucosa moist. Neck: Supple. Respiratory: Lungs are clear to auscultation bilaterally. RR regular and unlabored. Cardiovascular: Tachy rate and rhythm with S1-S2. No murmurs. Gastrointestinal: Abdomen is soft, nontender, and nondistended with positive bowel sounds. Skin: Warm and dry. No rashes. vericose veins Extremities: No cyanosis or clubbing. Radial and pedal pulses intact and equal bilaterally. Right knee dressing was clean, dry, and intact. +2 nonpitting RLE edema with medial knee with ecchymosis. He is neurovascularly intact distal to the surgical site. Neurological: Alert and oriented x4 speech clear. Cranial nerves 2-12 are grossly intact. No gross focal deficits to casual conversation. Psychiatric: Pleasant and cooperative with normal mood and affect. Objective Data Vital Signs Vital Signs: Vital Signs - 24 hr 06/02/22 11:55 06/02/22 12:25 06/02/22 13:25 Temperature 97.1 F L 97.1 F L 97.6 F Pulse Rate 86 80 121 H Respiratory Rate 17 17 16 Blood Pressure 128/72 118/91 H 111/57 L Pulse Oximetry 100
[2022-06-03] MEDS: SODIUM CHLORIDE 0.9% IV 500 ML IV CONT (12:32)
--- NOTE | 2022-06-03 14:04 | PM.PNORT ---
Progress Note: A&P Assessment and Plan (1) Status post total right knee replacement: Code(s): Z96.651 - Presence of right artificial knee joint Status: Acute Plan 71-year-old male postop day 1 after right total knee arthroplasty. Having a bit of pain in the right knee and what appears to be some orthostatic hypotension when participating with therapy. I think staying an extra night would be a good idea. Hopeful that he Subjective Subjective Date/Time Seen: 06/03/22 14:04 Post Op day: 1 Principal diagnosis: Status post right total knee arthroplasty Interval history: 71-year-old male postop day 1 after right total knee arthroplasty. He was able to participate well with therapy this morning but was unable to do so this afternoon due to a slight drop in his blood pressure. He is also experiencing quite a bit of pain in the right knee as well. No issues at the incision site. He would like to discuss a short stay at a nursing facility. Review of Systems Constitutional: Constitutional: Reports as per HPI and Reports no additional constitutional complaints Musculoskeletal: Musculoskeletal: Reports no additional musculoskeletal complaints and Reports as per HPI Exam Const: General: comfortable and no acute distress Resp: Effort & Inspection: normal respiratory effort Skin: General skin exam: normal color and no erythema Neuro: Sensory Exam: normal sensation Extrem: Other: Exam of the right knee demonstrates near full active extension. He is able to dorsiflex and plantar flex the foot without difficulty. Calf negative. No tenderness into the proximal thigh. Neurovascular status right lower extremity intact. Psych: Mental Status: mental status grossly normal Radiology Reports: Comments: EXAMINATION: [id number] DATE: 06/02/2022 10:21 INDICATION: Total right knee arthroplasty. Postop. TECHNIQUE: 2 views of right knee were obtained. COMPARISON: Right knee radiographs 11/20/2021 FINDINGS: There is a total right knee arthroplasty with patellar resurfacing in near-anatomic alignment. No fracture. There is gas in the knee joint and soft tissues, consistent with recent surgery. IMPRESSION: 1. Total right knee arthroplasty in near-anatomic alignment. Knee X-Ray 06/02/22 Orthopedics Result Report 11/20/21 Objective Data Vital Signs Vital Signs: Vital Signs - 24 hr 06/02/22 14:10 06/02/22 14:10 06/02/22 18:00 Temperature 97.9 F Pulse Rate 94 Respiratory Rate 17 Blood Pressure 119/79 Pulse Oximetry 100 Oxygen Delivery Room Air Room Air 06/02/22 18:11 06/02/22 20:00 06/02/22 21:08 Temperature 98.1 F 98.3 F Pulse Rate 104 H 116 H Respiratory Rate 17 16 Blood Pressure 106/61 122/78 Pulse Oximetry 96 98 Oxygen Delivery Room Air 06/03/22 01:08 06/03/22 05:08 06/03/22 09:08 Temperature 97 F L 98.1 F 99.3 F Pulse Rate 124 H 113 H 123 H Respiratory Rate 16 14 16 Blood Pressure 138/90 126/84 109/70 Pulse Oximetry 99 94 94 Oxygen Delivery 06/03/22 09:15 Temperature Pulse Rate 135 H Respiratory Rate Blood Pressure 90/70 L Pulse Oximetry Oxygen Delivery Intake/Output Intake/Output: Intake & Output 05/31/22 06/01/22 06/02/22 06/03/22 23:59 23:59 23:59 23:59 Intake Total 1430 1040 Output Total 100 600 Balance 1330 440 Meds/Results Medications: Active Medications Generic Name Dose Route Start Last Admin Trade Name Freq PRN Reason Stop Dose Admin Acetaminophen 1,000 mg 06/02/22 11:23 Acetaminophen 500 Mg Tablet PO Q6H PRN Pain Rated 1-3 Hydrocodone Bitart/Acetaminophen 1 tab 06/02/22 11:23 06/03/22 13:25 Hydrocodone/Acetaminophen (*Crx) 5-325 Mg Tablet PO 1 tab Q4H PRN Administration Pain Rated 4-6 Hydrocodone Bitart/Acetaminophen 2 tab 06/02/22 11:23 06/02/22 21:43 Hydrocodone/Acetaminophen (*Crx) 5-325 Mg Tablet PO 2 tab Q6H PRN Administration Pain Rat
--- NOTE | 2022-06-03 14:14 | PCPTNOTE ---
Attempted to see patient for PT this afternoon, per RN patient's blood pressures have been very low and advised therapy not to see patient for out of bed activity.
--- NOTE | 2022-06-03 14:15 | PCOTNOTE ---
Attempted to see Patient for P.M. treatment session. Per RN, Rosa has received his fluid, still having difficulty with blood pressure at rest, so no services this P.M.
--- NOTE | 2022-06-03 14:16 | PM.DS ---
DS: Admitting Diagnosis Discharge Date 06/03/2022 Admitting Diagnosis Right knee osteoarthritis DS: Discharge Diagnosis Discharge Diagnosis (1) Status post total right knee replacement: Code(s): Z96.651 - Presence of right artificial knee joint Status: Acute Plan 71-year-old male postop day 1 after right total knee replacement. Uneventful overnight stay but has been a bit tired today. He is able to participate well with physical therapy this morning but developed some orthostatic hypertension with therapy this afternoon. He would like to be discharged to rehab facility and I feel that this is reasonable. DS: Summary Hospital Course Reason for hospitalization: Observation after outpatient procedure Hospital Course: 71-year-old male postop day 1 after right total knee arthroplasty. Uneventful overnight stay but was a bit groggy this morning and this afternoon. He participated with therapy this morning but was unable to do so this afternoon due to what appeared to be some orthostatic hypotension. He was given a bolus of fluids. He inquired about a short stay at a rehab facility in spoke to care coordination about this. He has been accepted at [facility] and plan to discharge there today. Resume therapy tomorrow. Status at Discharge Functional status at discharge: uses cane/walker Overall status at discharge: patient is progressing back to baseline Time Spent with Patient Time attestation: Total time spent providing and/or coordinating discharge services: Time spent: Less than 30 minutes Exam Const: General: comfortable and no acute distress HENMT: Mouth: Yes moist mucous membranes Eyes: General: appearance normal, both eyes and all related structures Resp: Effort & Inspection: normal respiratory effort Skin: General skin exam: normal color and no erythema Neuro: Sensory Exam: normal sensation Extrem: Other: Exam of the right knee demonstrates near full active extension. Dressing over the incision is clean and dry. He is able to plantar flex and dorsiflex the foot without difficulty. Calf negative. Neurovascular status right lower extremity intact. Psych: Mental Status: mental status grossly normal DS: Data Data Completed and Pending Labs on day of discharge: Labs from last 24 hours 06/03/22 06/03/22 06/03/22 05:59 05:59 05:59 WBC 5.3 RBC 3.06 L Hgb 10.6 L Hct 31.2 L MCV 102.0 H MCH 34.6 H MCHC 34.0 RDW 13.2 Plt Count 205 MPV 9.4 Immature Gran % (Auto) 0.4 Neut % (Auto) 75.6 H Lymph % (Auto) 12.4 L [place] % (Auto) 11.2 H Eos % (Auto) 0.0 Baso % (Auto) 0.4 Lymph # (Auto) 0.65 L [place] # (Auto) 0.6 Eos # (Auto) 0.0 Baso # (Auto) 0.0 Abs Immat Gran (auto) 0.02 Absolute Neuts (auto) 4.0 Absolute Nucleated RBC 0.0 Nucleated RBC % 0.0 Sodium 135 L Potassium 3.5 Chloride 102 Carbon Dioxide 26 Anion Gap 7 L BUN 14 Creatinine 0.90 Estim Creat Clear Calc 79 Estimated GFR > 60 Glucose 114 H Calcium 7.9 L Magnesium Cancelled 1.7 Total Bilirubin Cancelled 0.9 Direct Bilirubin Cancelled 0.0 AST Cancelled 19 ALT Cancelled 15 Alkaline Phosphatase Cancelled 59 Total Protein Cancelled 6.0 L Albumin Cancelled 3.5 Discharge Plan Discharge Attending physician on discharge: Magno Arrington Discharging Clinician: Rigoberto Truong Patient Disposition: Inpatient Rehab Facility Activity: other - see discharge instructions Diet: as tolerated Wound Care Instructions: other - see discharge instructions Discharge Instructions: 3 times daily for 20 minutes each time, reclining in bed with ice packs over the incision and a pillow underneath the calf of the affected leg, not under the knee. Your wound is glued so it is okay to remove the dressing, get into the shower and get the wound wet in two days. You may then leave the incision o
[2022-06-03] MEDS: SODIUM CHLORIDE 0.9% IV 1,000 ML 999 ML IV CONT (14:52)
--- NOTE | 2022-06-03 15:46 | PM.PNORT ---
Progress Note: A&P Assessment and Plan (1) Status post total right knee replacement: Code(s): Z96.651 - Presence of right artificial knee joint Status: Acute Plan 71-year-old male postop day 1 after right total knee arthroplasty. Therapy was held this afternoon but plan to resume this tomorrow morning. Pain is consistent with the recent total knee arthroplasty, doing well with hydrocodone. Continue Xarelto for DVT prophylaxis. Appreciate hospitalist recommendations. Subjective Subjective Date/Time Seen: 06/03/22 0730, 1100 Post Op day: 1 Principal diagnosis: Status post right total knee arthroplasty Interval history: 71-year-old male postop day 1 after right total knee arthroplasty. Uneventful overnight stay but was a bit groggy this morning and this afternoon. He participated with therapy this morning but was unable to do so this afternoon due to what appeared to be some orthostatic hypotension. He inquired about a short stay at a rehab facility in spoke to care coordination about this. Review of Systems Constitutional: Constitutional: Reports as per HPI and Reports no additional constitutional complaints Musculoskeletal: Musculoskeletal: Reports no additional musculoskeletal complaints and Reports as per HPI Exam Const: General: comfortable and no acute distress Resp: Effort & Inspection: normal respiratory effort Skin: General skin exam: normal color and no erythema Neuro: Sensory Exam: normal sensation Extrem: Other: Exam of the right knee demonstrates active range of motion to near full extension. He is able to dorsiflex and plantar flex the foot without difficulty. Calf negative. No tenderness to the proximal thigh. Swelling at the right knee consistent with the recent surgical procedure. No drainage at the surgical dressing. Neurovascular status right lower extremity intact. Psych: Mental Status: mental status grossly normal Radiology Reports: Comments: EXAMINATION: XR_[id number]_CR DATE: 06/02/2022 10:21 INDICATION: Total right knee arthroplasty. Postop. TECHNIQUE: 2 views of right knee were obtained. COMPARISON: Right knee radiographs 11/20/2021 FINDINGS: There is a total right knee arthroplasty with patellar resurfacing in near-anatomic alignment. No fracture. There is gas in the knee joint and soft tissues, consistent with recent surgery. IMPRESSION: 1. Total right knee arthroplasty in near-anatomic alignment. Knee X-Ray 06/02/22 Orthopedics Result Report 11/20/21 Objective Data Vital Signs Vital Signs: Vital Signs - 24 hr 06/02/22 18:00 06/02/22 18:11 06/02/22 20:00 Temperature 98.1 F Pulse Rate 104 H Respiratory Rate 17 Blood Pressure 106/61 Pulse Oximetry 96 Oxygen Delivery Room Air Room Air 06/02/22 21:08 06/03/22 01:08 06/03/22 05:08 Temperature 98.3 F 97 F L 98.1 F Pulse Rate 116 H 124 H 113 H Respiratory Rate 16 16 14 Blood Pressure 122/78 138/90 126/84 Pulse Oximetry 98 99 94 Oxygen Delivery 06/03/22 09:08 06/03/22 09:15 06/03/22 13:08 Temperature 99.3 F 98.2 F Pulse Rate 123 H 135 H 115 H Respiratory Rate 16 18 Blood Pressure 109/70 90/70 L 113/59 L Pulse Oximetry 94 97 Oxygen Delivery 06/03/22 14:00 06/03/22 14:05 Temperature Pulse Rate 115 H 124 H Respiratory Rate Blood Pressure 113/59 L 80/52 L Pulse Oximetry Oxygen Delivery Intake/Output Intake/Output: Intake & Output 05/31/22 06/01/22 06/02/22 06/03/22 23:59 23:59 23:59 23:59 Intake Total 1430 1280 Output Total 100 600 Balance 1330 680 Meds/Results Medications: Active Medications Generic Name Dose Route Start Last Admin Trade Name Freq PRN Reason Stop Dose Admin Acetaminophen 1,000 mg 06/02/22 11:23 Acetaminophen 500 Mg Tablet PO Q6H PRN Pain Rated 1-3 Hydrocodone Bitart/Acetaminophen 1 tab 06/02/22 11:23 06/03/22 13:25 Hydrocodone/Acetaminophen (*Crx) 5-325 Mg Tablet PO
[2022-06-03] MEDS: SODIUM CHLORIDE 0.9% IV 1,000 ML 100 ML IV CONT (16:08)
[2022-06-03] MEDS: ROSUVASTATIN 10 MG TABLET 20 MG PO (22:16)
[2022-06-03] MEDS: DONEPEZIL HCL 5 MG TABLET PO (22:17)
[2022-06-03] MEDS: NORTRIPTYLINE HCL 25 MG CAPSULE PO (22:17)
[2022-06-03] MEDS: HYDROcodone/acetaminophen (*CRX) 5-325 MG TABLET 2 TAB PO (23:15)
[2022-06-04] VITALS (12 sets, daily range): BP systolic 72–124; BP diastolic 38–68; PULSE 110–150; RESP 16–19; TEMP 36.4–36.7; O2SAT 96–98
[2022-06-04] MEDS: SODIUM CHLORIDE 0.9% IV 1,000 ML 100 ML IV CONT ×3 (02:35→22:36)
[2022-06-04 06:22] LABS: Hematocrit 26.3 % (42.0-52.0); Hemoglobin 8.7 g/dL (14.0-18.0); Mean Corpuscular HGB Conc 33.1 g/dl (32-36); Mean Corpuscular Hemoglobin 34.9 pg (26-34); Mean Corpuscular Volume 105.6 fl (80-100); Mean Platelet Volume 9.8 fl (7.4-10.4); Platelet Count Result 182 k/mm3 (150-375); Red Blood Count 2.49 M/mm3 (4.6-6.20); Red Cell Distribution Width 13.3 % (11.5-14.5); White Blood Count 6.1 K/mm3 (4.5-10.0)
[2022-06-04 06:26] LABS: Alanine Aminotransferase 11 U/L (6-50); Albumin Level 3.1 g/dL (3.5-5.1); Alkaline Phosphatase 51 U/L (38-126); Anion Gap 6 mmol/L (8-16); Aspartate Amino Transferase 15 U/L (17-59); Bilirubin,Total 0.9 mg/dL (0.2-1.3); Blood Urea Nitrogen 12 mg/dL (9-20); Calcium 7.5 mg/dL (8.4-10.2); Carbon Dioxide 28 mmol/L (22-30); Chloride 101 mmol/L (98-107); Estimated CRCL calculation 99 ml/min; Estimated Glomerular Filt Rate > 60; Glucose 107 mg/dL (65-110); Potassium 3.1 mmol/L (3.4-5.0); Sodium 135 mmol/L (137-145)
[2022-06-04] MEDS: HYDROcodone/acetaminophen (*CRX) 5-325 MG TABLET 1 TAB PO (07:31)
[2022-06-04] MEDS: polyethylene glycoL 3350 17 GM POWD.PACK PO (09:15)
[2022-06-04] MEDS: SENNA/DOCUSATE SODIUM TABLET 2 TAB PO ×2 (09:16→18:30)
[2022-06-04] MEDS: ASCORBIC ACID 500 MG TABLET 1000 MG PO (09:16)
[2022-06-04] MEDS: allopurinoL 150 MG TABLET PO (09:16)
[2022-06-04] MEDS: PANTOPRAZOLE 40 MG TABLET PO (09:16)
[2022-06-04] MEDS: CHOLECALCIFEROL 1,000 UNITS TABLET 1000 UNITS PO (09:17)
[2022-06-04] MEDS: RIVAROXABAN 10 MG TABLET PO (09:17)
[2022-06-04] MEDS: VITAMIN E 400 UNIT CAPSULE PO (09:17)
[2022-06-04] MEDS: MONTELUKAST SODIUM 10 MG TABLET PO (09:17)
[2022-06-04] MEDS: CYANOCOBALAMIN 1,000 MCG TABLET 1000 MCG PO (09:17)
[2022-06-04] MEDS: MEMANTINE 5 MG TABLET PO (09:18)
--- NOTE | 2022-06-04 09:21 | PM.IMHP ---
H&P: HPI History of Present Illness Date/Time: 06/04/22 09:21 [facility] Past Medical History Medical History (Updated 06/03/22 @ 19:12 by Vane Cherry APRN) Benign prostatic hyperplasia Deep vein thrombosis of left lower extremity (2016) Degenerative arthritis of knee, bilateral Gastroesophageal reflux disease Gout Hyperlipidemia Hypertension Kidney stones Obstructive sleep apnea Mild sleep apnea. No longer using CPAP after weight loss. Short-term memory loss Surgical History Surgical History (Updated 06/03/22 @ 14:05 by SENTHIL Dodd) History of arthroscopy of right knee (2012) History of bilateral inguinal hernia repair History of meniscectomy of left knee History of tonsillectomy (1950) History of umbilical hernia repair Family History Family History Father Cancer Mother Cancer Sibling Cancer Social History Social History (Updated 06/02/22 @ 20:34 by Tana Montalvo PA-C) Social History: Surrogate medical decision maker: Dago Thomas, spouse. Code status: Full code. Years smoked: 55 Smoking status: Former smoker Tobacco type: cigarettes Smoking end date: 04/20/22 Alcohol intake: never Substance use: never Substance use type: does not use Lack of Transportation: No Lack of Food: Never True Current Housing: I Have Housing Concerned About Future Housing: No Difficulty Paying Gas/Electric Bills: No Difficulty Paying for Meds: No Currently Unemployed: No Education: High School Diploma/GED Difficulty w/ Childcare or Family Care: No Living arrangements: with family Additional living arrangements comments: Lives with of 50 years in [place]. Additional occupation/education comments: Retired. Spiritual care concerns: No Meds Home Medications and Allergies Home Medications Medication Instructions Recorded Confirmed Type B6 0.85 mg-folic 200 1 tablet PO DAILY 11/20/21 06/02/22 History [id number] oral chewable tablet (Neuriva Plus) alfuzosin 10 mg tablet,extended 10 mg PO DAILY 11/20/21 06/02/22 History release 24 hr allopurinol 300 mg tablet 150 mg PO DAILY 11/20/21 06/02/22 History amiloride 5 mg tablet 5 mg PO DAILY 11/20/21 06/02/22 History amlodipine 2.5 mg tablet 2.5 mg PO DAILY 11/20/21 06/02/22 History ascorbic acid (vitamin C) 1,000 mg 1 g PO DAILY 11/20/21 06/02/22 History capsule cholecalciferol (vitamin D3) 25 25 mcg PO DAILY 11/20/21 06/02/22 History mcg (1,000 unit) capsule diazepam 10 mg tablet 10 mg PO TID PRN Insomnia 11/20/21 06/02/22 History ibuprofen 200 mg capsule 200 mg PO Q6H PRN Pain 11/20/21 06/02/22 History mecobalamin (vitamin B12) 1,000 1,000 mcg PO DAILY 11/20/21 06/02/22 History mcg lozenges montelukast 10 mg tablet 10 mg PO DAILY 11/20/21 06/02/22 History nortriptyline 25 mg capsule 25 mg PO DAILY 11/20/21 06/02/22 History rosuvastatin 20 mg tablet 20 mg PO DAILY 11/20/21 06/02/22 History vitamin E (dl, acetate) 180 mg 180 mg PO DAILY 11/20/21 06/02/22 History (400 unit) capsule memantine 5 mg tablet 5 mg PO QAM 04/24/22 06/02/22 History turmeric 400 mg capsule 400 mg PO DAILY 04/24/22 06/02/22 History zinc gluconate 50 mg tablet 50 mg PO DAILY 04/24/22 06/02/22 History esomeprazole magnesium 20 mg 20 mg PO PRN PRN Heartburn 05/22/22 06/02/22 History capsule,delayed release (Nexium) donepezil 5 mg tablet 5 mg PO HS 06/02/22 06/02/22 History rivaroxaban 10 mg tablet (Xarelto) 10 mg PO DAILY 06/02/22 06/02/22 History oxycodone 5 mg tablet 5 mg PO Q4-6H PRN pain #42 tabs 06/03/22 Rx Allergies Allergy/AdvReac Type Severity Reaction Status Date / Time naproxen Allergy Unknown SWELLING,FL Verified 06/02/22 06:38 USHING Vital Signs Vital Signs - 24 hr 06/03/22 13:08 06/03/22 14:00 06/03/22 14:05 Temperature 98.2 F Pulse Rate 115 H 115 H 124 H Respiratory Rate 18 Blood Pressu
--- NOTE | 2022-06-04 09:25 | PM.IMPN ---
Progress Note: A&P Assessment and Plan (1) Osteoarthritis of right knee: Code(s): M17.11 - Unilateral primary osteoarthritis, right knee Status: Resolved Assessment and Plan: Postoperative day 1 status post right total knee arthroplasty. Wound care, pain control, DVT prophylaxis deferred to Dr. Arrington. (2) Hypertension: Code(s): I10 - Essential (primary) hypertension Status: Acute Assessment and Plan: Patient with +orthostatic hypotension noted when getting up with therapy today. SBP dropped to 80-90s and patient is tachycardic HR 110-120s. Hold antihypertensives for now. Given 500 cc NS bolus and repeated orthostatics, that were still noted to be positive. Start maintenance fluids NS@100 mL/hour. Check orthostatic vitals Qshift until stable. Consider SHIV hose when appropriate per ortho 06/04/22 Orthostatics positive still. With a drop from 108 to 84 to 72 SBP from supine to sitting to standing. Hold narcotics for now. Have discussed this case with Dr. Arrington. Discuss Shiv hose with orthopedist and he does not believe they will fit over patient's surgical leg. (3) Hyperlipidemia: Code(s): E78.5 - Hyperlipidemia, unspecified Status: Chronic Assessment and Plan: Continue statin. LFTs stable. (4) Benign prostatic hyperplasia: Code(s): N40.0 - Benign prostatic hyperplasia without lower urinary tract symptoms Status: Chronic Assessment and Plan: With acute retention postop. Straight cathed x1 with -600 mL. Bladder scan Q6 and PRN. straight cath if >400 mL. Continue alfuzosin when blood pressure is improved, will change it to HS dosing to attempt to prevent orthostatic hypotension and next dose scheduled 06/04 at HS. (5) Gastroesophageal reflux disease: Code(s): K21.9 - Gastro-esophageal reflux disease without esophagitis Status: Chronic Assessment and Plan: Continue PPI and add PRN mylanta. (6) History of deep venous thrombosis: Code(s): Z86.718 - Personal history of other venous thrombosis and embolism Status: Chronic Assessment and Plan: DVT in 2017. Patient is on Xarelto postop. (7) Status post total right knee replacement: Code(s): Z96.651 - Presence of right artificial knee joint Status: Acute Assessment and Plan: Postop day two right total knee replacement. Still experiencing issues with orthostatic hypotension. Has seen a significant drop in his hemoglobin. Did not have an inordinate amount of blood loss at the time of surgery. Although the right leg is swollen particularly below the knee it is not particularly tense. This is more consistent with subcutaneous edema. Another hemoglobin is going to be checked today. I discussed this with the hospitalist service today. Will not be ready to be discharged today. Plan Thank you for allowing us to participate in this patient's care. Please do not hesitate to contact us with any questions. Subjective Date/time seen: 06/04/22 09:25 Interval history: Patient is well pain controlled. Patient is still having positive orthostatics with some symptoms including lightheadedness. The symptoms seem to have been improved from yesterday although he is still symptomatic. I discussed the case with patient's orthopedist. Patient's hemoglobin has lowered although it is unclear if this is from blood loss or from fluids being given to the patient. This will be closely monitor. When talking with orthopedist he does not believe blood loss is from the knee but we will continue to monitor this. Review of Systems Review of Systems: All systems reviewed & are unremarkable except as noted in HPI and below Exam Narrative: GENERAL: Comfortable, no acute distress HENMT: moist mucous membranes EYES: EOM intact b/l NECK: no lymphadenopathy RESPIRATORY: clear to auscultation CARDIO: RRR GI: soft, nonten
[2022-06-04] MEDS: POTASSIUM CHLORIDE 20 MEQ PACKET (FOR LIQUID) 60 MEQ PO (09:33)
--- NOTE | 2022-06-04 11:27 | PCOTNOTE ---
Attempted to see Patient later in the morning this date due to Physical therapy saw Patient this A.M. Patient still having low blood pressures limiting his availability for therapy services. Patient was asked to participate in attempting sitting edge of the bed at this time to progress with some activities in a sitting position. Patient refused to participate, stating, I've tried getting up 3 times today already, it hasn't worked, I'm going to eat lunch, you can try back this afternoon .
--- NOTE | 2022-06-04 12:37 | PM.PNORT ---
Progress Note: A&P Assessment and Plan (1) Status post total right knee replacement: Code(s): Z96.651 - Presence of right artificial knee joint Status: Acute Assessment and Plan: Postop day two right total knee replacement. Still experiencing issues with orthostatic hypotension. Has seen a significant drop in his hemoglobin. Did not have an inordinate amount of blood loss at the time of surgery. Although the right leg is swollen particularly below the knee it is not particularly tense. This is more consistent with subcutaneous edema. Another hemoglobin is going to be checked today. I discussed this with the hospitalist service today. Will not be ready to be discharged today. Subjective Subjective Date/Time Seen: 06/04/22 12:37 Post Op day: 2 Principal diagnosis: Dx: Status post right total knee replacement Interval history: 71-year-old male who is postop day two right total knee replacement. Is still experiencing issues with orthostatic hypotension. Was able to get up and walk to the restroom today with assistance and sit on the toilet. Not complaining of much pain in his right knee. Exam Const: General: cooperative, alert and awake Orientation/consciousness: patient oriented x3 HENMT: Head: normal to inspection Ears: hearing grossly normal bilaterally Resp: Effort & Inspection: able to speak in complete sentences GI: Inspection: non-distended GI Palp: No abdominal tenderness Neuro: General: patient oriented x3 Extrem: Other: Exam of The right knee reveals dry incision. Has just a mild intra-articular effusion. Does have subcutaneous edema below the knee but it is not very tense. Thigh and lower leg compartments are all supple. Soreness mainly anteriorly along the distal aspect of the incision. No warmth nor erythema. Neurovascular status unremarkable right lower extremity. There is some expected bruising lateral aspect of the knee. Calves are nontender. Psych: Mental Status: mental status grossly normal Objective Data Vital Signs Vital Signs: Vital Signs - 24 hr 06/03/22 13:08 06/03/22 14:00 06/03/22 14:05 Temperature 98.2 F Pulse Rate 115 H 115 H 124 H Respiratory Rate 18 Blood Pressure 113/59 L 113/59 L 80/52 L Pulse Oximetry 97 06/03/22 22:00 06/04/22 01:00 06/04/22 07:32 Temperature 98.7 F 98.1 F Pulse Rate 128 H 120 H 112 H Respiratory Rate 19 16 Blood Pressure 125/59 L 112/68 Pulse Oximetry 95 96 06/04/22 08:40 06/04/22 08:45 06/04/22 08:50 Temperature Pulse Rate 111 H 125 H 142 H Respiratory Rate Blood Pressure 108/55 L 84/49 L 72/38 L Pulse Oximetry 06/04/22 08:55 Temperature Pulse Rate Respiratory Rate Blood Pressure 100/58 L Pulse Oximetry Intake/Output Intake/Output: Intake & Output 06/01/22 06/02/22 06/03/22 06/04/22 23:59 23:59 23:59 23:59 Intake Total 1430 / 1430 1520 / 1520 1240 / 1240 Output Total 100 / -200.0 930 / 930 Balance 1330 / 1630.0 590 / 590 1240 / 1240 Meds/Results Medications: Active Medications Generic Name Dose Route Start Last Admin Trade Name Freq PRN Reason Stop Dose Admin Acetaminophen 1,000 mg 06/02/22 11:23 Acetaminophen 500 Mg Tablet PO Q6H PRN Pain Rated 1-3 Hydrocodone Bitart/Acetaminophen 1 tab 06/02/22 11:23 06/04/22 07:31 Hydrocodone/Acetaminophen (*Crx) 5-325 Mg Tablet PO 1 tab Q4H PRN Administration Pain Rated 4-6 Hydrocodone Bitart/Acetaminophen 2 tab 06/02/22 11:23 06/03/22 23:15 Hydrocodone/Acetaminophen (*Crx) 5-325 Mg Tablet PO 2 tab Q6H PRN Administration Pain Rated 7-10 Al Hydrox/Mg Hydrox/Simethicone 30 ml 06/03/22 11:54 Mag Hydrox/Al Hydrox/Simeth 30 Ml Udc PO Q6H PRN Indigestion Alfuzosin HCl 10 mg 06/04/22 21:00 Alfuzosin 10 Mg Er Tablet PO HS DIONISIO Allopurinol 150 mg 06/03/22 09:00 06/04/22 09:16 Allopurinol 150 Mg Tablet PO 150 mg DAILY DIONISIO Administrat
[2022-06-04] MEDS: ACETAMINOPHEN 500 MG TABLET 1000 MG PO ×2 (12:45→18:30)
[2022-06-04 14:48] LABS: Hematocrit 24.7 % (42.0-52.0); Hemoglobin 8.3 g/dL (14.0-18.0); Mean Corpuscular HGB Conc 33.6 g/dl (32-36); Mean Corpuscular Volume 104.2 fl (80-100); Mean Platelet Volume 9.3 fl (7.4-10.4); Platelet Count Result 164 k/mm3 (150-375); Red Blood Count 2.37 M/mm3 (4.6-6.20); Red Cell Distribution Width 13.3 % (11.5-14.5); White Blood Count 5.4 K/mm3 (4.5-10.0)
[2022-06-04] MEDS: NORTRIPTYLINE HCL 25 MG CAPSULE PO (20:39)
[2022-06-04] MEDS: ROSUVASTATIN 10 MG TABLET 20 MG PO (20:39)
[2022-06-04] MEDS: DONEPEZIL HCL 5 MG TABLET PO (20:39)
[2022-06-05] VITALS (17 sets, daily range): BP systolic 85–105; BP diastolic 45–68; PULSE 91–117; RESP 16–20; TEMP 36–37.2; O2SAT 93–99
[2022-06-05] MEDS: SODIUM CHLORIDE 0.9% IV 250 ML 999 ML IV CONT (05:01)
[2022-06-05] MEDS: ACETAMINOPHEN 500 MG TABLET 1000 MG PO ×2 (05:07→10:22)
[2022-06-05 06:29] LABS: Hematocrit 21.4 % (42.0-52.0); Hemoglobin 7.1 g/dL (14.0-18.0); Mean Corpuscular HGB Conc 33.2 g/dl (32-36); Mean Corpuscular Hemoglobin 35.5 pg (26-34); Mean Platelet Volume 9.9 fl (7.4-10.4); Platelet Count Result 169 k/mm3 (150-375); Red Cell Distribution Width 13.2 % (11.5-14.5); White Blood Count 4.6 K/mm3 (4.5-10.0)
[2022-06-05 06:41] LABS: Alanine Aminotransferase 11 U/L (6-50); Albumin Level 2.8 g/dL (3.5-5.1); Alkaline Phosphatase 49 U/L (38-126); Anion Gap 4 mmol/L (8-16); Aspartate Amino Transferase 16 U/L (17-59); Bilirubin,Total 0.8 mg/dL (0.2-1.3); Blood Urea Nitrogen 10 mg/dL (9-20); Calcium 7.3 mg/dL (8.4-10.2); Carbon Dioxide 27 mmol/L (22-30); Chloride 104 mmol/L (98-107); Estimated CRCL calculation 100 ml/min; Estimated Glomerular Filt Rate > 60; Glucose 98 mg/dL (65-110); Potassium 3.2 mmol/L (3.4-5.0); Sodium 135 mmol/L (137-145)
[2022-06-05] MEDS: CHOLECALCIFEROL 1,000 UNITS TABLET 1000 UNITS PO (09:54)
[2022-06-05] MEDS: VITAMIN E 400 UNIT CAPSULE PO (09:54)
[2022-06-05] MEDS: allopurinoL 150 MG TABLET PO (09:55)
[2022-06-05] MEDS: SENNA/DOCUSATE SODIUM TABLET 2 TAB PO ×2 (09:55→16:53)
[2022-06-05] MEDS: FERROUS SULFATE 324 MG TABLET PO (09:55)
[2022-06-05] MEDS: ASCORBIC ACID 500 MG TABLET 1000 MG PO (09:55)
[2022-06-05] MEDS: MONTELUKAST SODIUM 10 MG TABLET PO (09:55)
[2022-06-05] MEDS: MEMANTINE 5 MG TABLET PO (09:56)
[2022-06-05] MEDS: CYANOCOBALAMIN 1,000 MCG TABLET 1000 MCG PO (09:56)
[2022-06-05] MEDS: POTASSIUM CHLORIDE 20 MEQ PACKET (FOR LIQUID) 40 MEQ PO (10:00)
[2022-06-05] MEDS: polyethylene glycoL 3350 17 GM POWD.PACK PO (10:26)
[2022-06-05 11:39] LABS: Transferrin 101 mg/dL (206-381)
[2022-06-05] MEDS: IBUPROFEN IV 800 MG/200 ML 800 MG/200 ML BAG 400 MG IVPB (11:57)
--- NOTE | 2022-06-05 12:02 | PM.PNORT ---
Progress Note: A&P Assessment and Plan (1) Status post total right knee replacement: Code(s): Z96.651 - Presence of right artificial knee joint Status: Acute Assessment and Plan: Postop day 3 right total knee replacement. Still experiencing issues with orthostatic hypotension and anemia. Hemoglobin is 7.1. Right leg is swollen particularly at and below the knee, however it is not tense. CTA of the right lower extremity has been ordered patient was refusing until his pain was under better control. We are holding narcotics due to blood pressure so he was given a 1 time dose of IV Caldolor. Await results of the CTA. Subjective Subjective Date/Time Seen: 06/05/22 12:02 Post Op day: 3 Principal diagnosis: Dx: Status post right total knee replacement Interval history: 71-year-old male who is postop day 3 s/p right total knee replacement. Is still experiencing issues with orthostatic hypotension and anemia. Rates his pain as a 10/10 in the knee. He would like pain medication prior to receiving the CTA. He is still able to mobilize the knee and plantar/dorsiflex the ankle without difficulty. Review of Systems Constitutional: Constitutional: Reports as per HPI and Reports no additional constitutional complaints Musculoskeletal: Musculoskeletal: Reports no additional musculoskeletal complaints and Reports as per HPI Exam Const: General: cooperative, alert and awake Orientation/consciousness: patient oriented x3 HENMT: Head: normal to inspection Ears: hearing grossly normal bilaterally Resp: Effort & Inspection: able to speak in complete sentences GI: Inspection: non-distended GI Palp: No abdominal tenderness Skin: General skin exam: ecchymosis (Right knee, popliteal fossa. Left general shoulder) Neuro: General: patient oriented x3 Extrem: Other: Exam of the right knee demonstrates a clean and dry dressing. There is subcutaneous edema below the knee but still not tense. Thigh and lower leg compartments are all supple. There is warmth but no erythema. There is some expected bruising to the popliteal fossa. Calves are nontender. Pulses are strong but rapid, capillary refill is less than 2 seconds. Psych: Mental Status: mental status grossly normal Objective Data Vital Signs Vital Signs: Vital Signs - 24 hr 06/04/22 14:00 06/04/22 16:00 06/04/22 12:57 Temperature 97.9 F Pulse Rate 123 H 130 H 150 H Respiratory Rate 19 Blood Pressure 117/65 84/39 L Pulse Oximetry 97 Oxygen Delivery 06/04/22 20:00 06/04/22 20:00 06/04/22 16:19 Temperature 97.5 F L Pulse Rate 110 H 125 H Respiratory Rate 18 Blood Pressure 124/63 Pulse Oximetry 98 Oxygen Delivery Room Air 06/05/22 00:00 06/05/22 04:00 06/05/22 06:00 Temperature 96.8 F L Pulse Rate 104 H 111 H 109 H Respiratory Rate 16 Blood Pressure 105/48 L Pulse Oximetry 95 Oxygen Delivery 06/05/22 08:00 06/05/22 08:05 06/05/22 11:27 Temperature 98.3 F Pulse Rate 98 Respiratory Rate 16 Blood Pressure 89/52 L 85/48 L 90/50 L Pulse Oximetry 98 Oxygen Delivery Intake/Output Intake/Output: Intake & Output 06/02/22 06/03/22 06/04/22 06/05/22 23:59 23:59 23:59 23:59 Intake Total 1430 2520 4520 420 Output Total 100 930 450 675 Balance 1330 1590 4070 -255 Meds/Results Medications: Active Medications Generic Name Dose Route Start Last Admin Trade Name Freq PRN Reason Stop Dose Admin Acetaminophen 1,000 mg 06/02/22 11:23 06/05/22 10:22 Acetaminophen 500 Mg Tablet PO 1,000 mg Q6H PRN Administration Pain Rated 1-3 Hydrocodone Bitart/Acetaminophen 1 tab 06/02/22 11:23 06/04/22 07:31 Hydrocodone/Acetaminophen (*Crx) 5-325 Mg Tablet PO 1 tab Q4H PRN Administration Pain Rated 4-6 Hydrocodone Bitart/Acetaminophen 2 tab 06/02/22 11:23 06/03/22 23:15 Hydrocodone/Acetaminophen (*Crx) 5-325 Mg Tablet PO 2 tab Q6H PRN Administration Pa
[2022-06-05 12:40] LABS: Folic Acid 5.1 ng/mL (2.76->20)
[2022-06-05] MEDS: SODIUM CHLORIDE 0.9% IV 250 ML 30 ML IV CONT (13:33)
[2022-06-05 13:53] LABS: Iron < 10 ug/dL (49-181)
[2022-06-05 14:04] LABS: Percent Iron Saturation < 5 % (20-50)
--- NOTE | 2022-06-05 15:17 | PM.IMPN ---
Progress Note: A&P Assessment and Plan (1) Osteoarthritis of right knee: Code(s): M17.11 - Unilateral primary osteoarthritis, right knee Status: Resolved Assessment and Plan: Postoperative day 3 status post right total knee arthroplasty. Wound care, pain control, DVT prophylaxis deferred to Dr. Arrington. (2) Hypertension: Code(s): I10 - Essential (primary) hypertension Status: Acute Assessment and Plan: Patient with +orthostatic hypotension noted when getting up with therapy today. SBP dropped to 80-90s and patient is tachycardic HR 110-120s. Hold antihypertensives for now. Given 500 cc NS bolus and repeated orthostatics, that were still noted to be positive. Start maintenance fluids NS@100 mL/hour. Check orthostatic vitals Qshift until stable. Consider SHIV hose when appropriate per ortho 06/04/22 Orthostatics positive still. With a drop from 108 to 84? to 72 SBP from supine to sitting to standing. Hold narcotics for now. Have discussed this case with Dr. Arrington. Discuss Shiv hose with orthopedist and he does not believe they will fit over patient's surgical leg. 06/05/22 Orthostatics still positive. Patient's hemoglobin today 7.1. Patient with tachycardia and hypotension. Patient would benefit from transfusion. 06/05/2022 patient received 1 unit of PRBCs. Will repeat H&H 1 hour after transfusion completes. (3) Benign prostatic hyperplasia: Code(s): N40.0 - Benign prostatic hyperplasia without lower urinary tract symptoms Status: Chronic Assessment and Plan: With acute retention postop. Straight cathed x1 with -600 mL. Bladder scan Q6 and PRN. straight cath if >400 mL. Continue alfuzosin when blood pressure is improved, will change it to HS dosing to attempt to prevent orthostatic hypotension and next dose scheduled 06/04 at HS. (4) Gastroesophageal reflux disease: Code(s): K21.9 - Gastro-esophageal reflux disease without esophagitis Status: Chronic Assessment and Plan: Continue PPI and add PRN mylanta. (5) History of deep venous thrombosis: Code(s): Z86.718 - Personal history of other venous thrombosis and embolism Status: Chronic Assessment and Plan: DVT in 2017. Patient is on Xarelto postop. (6) Status post total right knee replacement: Code(s): Z96.651 - Presence of right artificial knee joint Status: Acute Assessment and Plan: Postop day 3 right total knee replacement.? Patient has swelling and tenderness below the knee. There does not appear to be significant blood pooling in the right knee. CTA of right lower extremity performed today and results revealed incomplete opacification of the distal left peroneal artery, mild atherosclerosis. Continue to monitor the right lower extremity. Subjective Date/time seen: 06/05/22 15:17 Interval history: Patient having some increased pain today. He is unable to receive narcotics due to hypotension. Patient's pain medication was changed to IV Tylenol. Patient has pain with touch to the RLE below the knee. I have discuss with Ortho and they would like patient to get it right lower extremity Arteriogram emesis in order. Patient is tachycardic, hypotensive and intermittently dizzy when he ambulates. Due to having these symptoms please hgb of 7.1 I believe that he would benefit from transfusion. Pt not completely on board with this but after discussing with him he has agreed to proceed. Review of Systems Review of Systems: All systems reviewed & are unremarkable except as noted in HPI and below Exam Narrative: GENERAL:? Comfortable, no acute distress HENMT: moist mucous membranes EYES: EOM intact b/l NECK: no lymphadenopathy RESPIRATORY: clear to auscultation CARDIO: RRR GI: soft, nontender, bowel sounds present SKIN: no rashes EXTREMITIES: Right knee and calf edema with mild bruising present.? Minimal pain
[2022-06-05 18:15] LABS: Hematocrit 23.4 % (42.0-52.0)
[2022-06-05] MEDS: ROSUVASTATIN 10 MG TABLET 20 MG PO (22:01)
[2022-06-05] MEDS: NORTRIPTYLINE HCL 25 MG CAPSULE PO (22:02)
[2022-06-05] MEDS: DONEPEZIL HCL 5 MG TABLET PO (22:02)
[2022-06-06] VITALS (14 sets, daily range): BP systolic 93–146; BP diastolic 58–75; PULSE 90–119; RESP 16–18; TEMP 36.3–37.3; O2SAT 93–100
[2022-06-06 00:27] LABS: IFOB Positive Control Positive; Immunochemical Fecal Occult Bl Negative (N)
[2022-06-06 07:34] LABS: Basophils Percent Auto 0.2 % (0.2-1.2); Eosinophils Absolute Auto 0.1 K/mm3 (0-0.3); Eosinophils Percent Auto 2.9 % (0-4.4); Hematocrit 23.6 % (42.0-52.0); Hemoglobin 7.7 g/dL (14.0-18.0); Immature Granulocyte Absolute 0.03 K/mm3 (0.00-0.031); Immature Granulocyte Percent A 0.7 % (0-0.5); Lymphocytes Absolute Auto 0.71 K/mm3 (0.9-3.2); Lymphocytes Percent Auto 15.8 % (18.3-44.2); Mean Corpuscular HGB Conc 32.6 g/dl (32-36); Mean Corpuscular Hemoglobin 32.8 pg (26-34); Mean Corpuscular Volume 100.4 fl (80-100); Mean Platelet Volume 9.3 fl (7.4-10.4); Monocytes Absolute Auto 0.3 K/mm3 (0.1-0.6); Monocytes Percent Auto 7.1 % (2.6-8.5); Neutrophils Absolute Auto 3.3 K/mm3 (1.3-6.7); Neutrophils Percent Auto 73.3 % (45.5-73.1); Platelet Count Result 184 k/mm3 (150-375); Red Blood Count 2.35 M/mm3 (4.6-6.20); Red Cell Distribution Width 15.2 % (11.5-14.5); White Blood Count 4.5 K/mm3 (4.5-10.0)
[2022-06-06 07:57] LABS: Alanine Aminotransferase 21 U/L (6-50); Albumin Level 2.8 g/dL (3.5-5.1); Alkaline Phosphatase 71 U/L (38-126); Anion Gap 8 mmol/L (8-16); Aspartate Amino Transferase 37 U/L (17-59); Bilirubin,Total 0.9 mg/dL (0.2-1.3); Blood Urea Nitrogen 12 mg/dL (9-20); Calcium 7.5 mg/dL (8.4-10.2); Carbon Dioxide 25 mmol/L (22-30); Chloride 104 mmol/L (98-107); Estimated CRCL calculation 105 ml/min; Estimated Glomerular Filt Rate > 60; Glucose 102 mg/dL (65-110); Potassium 3.2 mmol/L (3.4-5.0); Sodium 137 mmol/L (137-145)
[2022-06-06] MEDS: PANTOPRAZOLE 40 MG TABLET PO (08:26)
[2022-06-06] MEDS: MEMANTINE 5 MG TABLET PO (08:26)
[2022-06-06] MEDS: SENNA/DOCUSATE SODIUM TABLET 2 TAB PO (08:26)
[2022-06-06] MEDS: CHOLECALCIFEROL 1,000 UNITS TABLET 1000 UNITS PO (08:26)
[2022-06-06] MEDS: ASCORBIC ACID 500 MG TABLET 1000 MG PO (08:26)
[2022-06-06] MEDS: FERROUS SULFATE 324 MG TABLET PO (08:26)
[2022-06-06] MEDS: VITAMIN E 400 UNIT CAPSULE PO (08:26)
[2022-06-06] MEDS: MONTELUKAST SODIUM 10 MG TABLET PO (08:26)
[2022-06-06] MEDS: allopurinoL 150 MG TABLET PO (08:26)
[2022-06-06] MEDS: CYANOCOBALAMIN 1,000 MCG TABLET 1000 MCG PO (08:26)
[2022-06-06] MEDS: ASPIRIN 81 MG CHEWABLE TABLET PO (08:42)
[2022-06-06] MEDS: POTASSIUM CHLORIDE 20 MEQ PACKET (FOR LIQUID) 40 MEQ PO (09:48)
[2022-06-06] MEDS: IRON SUCROSE COMPLEX 200 MG in SODIUM CHLORIDE 0.9% IV 50 ML 120 MG IVPB (09:48)
--- NOTE | 2022-06-06 10:44 | PCOTNOTE ---
Attempted to see patient this am, however patient was with physical therapy at this time.
[2022-06-06 14:09] LABS: Immature Reticulocyte Fraction 31.4 % (3.0-15.9); Reticulocyte Hemoglobin Conten 27.4 pg (28.2-35.7); Reticulocyte Percent 2.75 % (0.7-4.3); Reticulocytes Absolute 0.06 B/L (32.2-175.7)
[2022-06-06 14:48] LABS: Lactate Dehydrogenase 144 U/L (120-246)
--- NOTE | 2022-06-06 15:13 | P.PNIM_ITS ---
Progress Note: A&P Assessment and Plan (1) Osteoarthritis of right knee: Code(s): M17.11 - Unilateral primary osteoarthritis, right knee Status: Resolved Assessment and Plan: Postoperative day 3 status post right total knee arthroplasty. * Wound care, pain control, DVT prophylaxis deferred to Dr. Arrington. (2) Hypertension: Code(s): I10 - Essential (primary) hypertension Status: Acute Assessment and Plan: Patient with +orthostatic hypotension noted when getting up with therapy today. * SBP dropped to 80-90s and patient is tachycardic HR 110-120s. Hold antihypertensives for now. * Given 500 cc NS bolus and repeated orthostatics, that were still noted to be positive. * Start maintenance fluids NS@100 mL/hour. Check orthostatic vitals Qshift until stable. * Consider SHIV hose when appropriate per ortho 06/04/22 * Orthostatics positive still. With a drop from 108 to 84? to 72 SBP from supine to sitting to standing. * Hold narcotics for now. * Have discussed this case with Dr. Arrington. * Discuss Shiv hose with orthopedist and he does not believe they will fit over patient's surgical leg. 06/05/22 * Orthostatics still positive. Patient's hemoglobin 7.1. * Patient with tachycardia and hypotension. Patient would benefit from transfusion. * 06/05/2022 patient received 1 unit of PRBCs. Will repeat H&H 1 hour after transfusion completes. 06/06/22 * Patient's orthostatics negative today. Although patient still has low blood pressure. (3) Anemia: Code(s): D64.9 - Anemia, unspecified Status: Acute Assessment and Plan: Patient did not have CBC performed before knee surgery. Post surgery patient's hemoglobin was 10. Patient had positive orthostatics postoperatively and the days following his surgery hemoglobin dropped dramatically. * Patient's hemoglobin 7.1 and he is symptomatic with hypotension and tachycardia as well as dizziness. * Patient received 1 unit of PRBCs on 06/05/2022 * Anemia labs revealed iron less than 10, TIBC 203, % saturation less than 5, transferrin 101 and ferritin 471 * Patient given 200 mg iron transfusion 06/06 * B12 and folate normal; LDH 144; absolute retic 0.6 (4) Benign prostatic hyperplasia: Code(s): N40.0 - Benign prostatic hyperplasia without lower urinary tract symptoms Status: Chronic Assessment and Plan: With acute retention postop. Straight cathed x1 with -600 mL. Bladder scan Q6 and PRN. straight cath if >400 mL. * Continue alfuzosin when blood pressure is improved, will change it to HS dosing to attempt to prevent orthostatic hypotension and next dose scheduled 06/04 at HS. (5) Gastroesophageal reflux disease: Code(s): K21.9 - Gastro-esophageal reflux disease without esophagitis Status: Chronic Assessment and Plan: Continue PPI and add PRN mylanta. (6) History of deep venous thrombosis: Code(s): Z86.718 - Personal history of other venous thrombosis and embolism Status: Chronic Assessment and Plan: DVT in 2017. Patient is on Xarelto postop. (7) Status post total right knee replacement: Code(s): Z96.651 - Presence of right artificial knee joint Status: Acute Assessment and Plan: Postop day 3 right total knee replacement.? * Patient has swelling and tenderness below the knee. There does not appear to be significant blood pooling in the right knee. * CTA of right lower extremity performed today and results reve
--- NOTE | 2022-06-06 15:13 | PM.IMPN ---
Progress Note: A&P Assessment and Plan (1) Osteoarthritis of right knee: Code(s): M17.11 - Unilateral primary osteoarthritis, right knee Status: Resolved Assessment and Plan: Postoperative day 3 status post right total knee arthroplasty. Wound care, pain control, DVT prophylaxis deferred to Dr. Arrington. (2) Hypertension: Code(s): I10 - Essential (primary) hypertension Status: Acute Assessment and Plan: Patient with +orthostatic hypotension noted when getting up with therapy today. SBP dropped to 80-90s and patient is tachycardic HR 110-120s. Hold antihypertensives for now. Given 500 cc NS bolus and repeated orthostatics, that were still noted to be positive. Start maintenance fluids NS@100 mL/hour. Check orthostatic vitals Qshift until stable. Consider SHIV hose when appropriate per ortho 06/04/22 Orthostatics positive still. With a drop from 108 to 84? to 72 SBP from supine to sitting to standing. Hold narcotics for now. Have discussed this case with Dr. Arrington. Discuss Shiv hose with orthopedist and he does not believe they will fit over patient's surgical leg. 06/05/22 Orthostatics still positive. Patient's hemoglobin 7.1. Patient with tachycardia and hypotension. Patient would benefit from transfusion. 06/05/2022 patient received 1 unit of PRBCs. Will repeat H&H 1 hour after transfusion completes. 06/06/22 Patient's orthostatics negative today. Although patient still has low blood pressure. (3) Anemia: Code(s): D64.9 - Anemia, unspecified Status: Acute Assessment and Plan: Patient did not have CBC performed before knee surgery. Post surgery patient's hemoglobin was 10. Patient had positive orthostatics postoperatively and the days following his surgery hemoglobin dropped dramatically. Patient's hemoglobin 7.1 and he is symptomatic with hypotension and tachycardia as well as dizziness. Patient received 1 unit of PRBCs on 06/05/2022 Anemia labs revealed iron less than 10, TIBC 203, % saturation less than 5, transferrin 101 and ferritin 471 Patient given 200 mg iron transfusion 06/06 B12 and folate normal; LDH 144; absolute retic 0.6 (4) Benign prostatic hyperplasia: Code(s): N40.0 - Benign prostatic hyperplasia without lower urinary tract symptoms Status: Chronic Assessment and Plan: With acute retention postop. Straight cathed x1 with -600 mL. Bladder scan Q6 and PRN. straight cath if >400 mL. Continue alfuzosin when blood pressure is improved, will change it to HS dosing to attempt to prevent orthostatic hypotension and next dose scheduled 06/04 at HS. (5) Gastroesophageal reflux disease: Code(s): K21.9 - Gastro-esophageal reflux disease without esophagitis Status: Chronic Assessment and Plan: Continue PPI and add PRN mylanta. (6) History of deep venous thrombosis: Code(s): Z86.718 - Personal history of other venous thrombosis and embolism Status: Chronic Assessment and Plan: DVT in 2017. Patient is on Xarelto postop. (7) Status post total right knee replacement: Code(s): Z96.651 - Presence of right artificial knee joint Status: Acute Assessment and Plan: Postop day 3 right total knee replacement.? Patient has swelling and tenderness below the knee. There does not appear to be significant blood pooling in the right knee. CTA of right lower extremity performed today and results revealed incomplete opacification of the distal left peroneal artery, mild atherosclerosis. Continue to monitor the right lower extremity. Subjective Date/time seen: 06/06/22 15:13 Interval history: Patient doing better today. Patient's partner is at bedside. patient received transfusion yesterday and hemoglobin this morning at 7.7. Patient was given iron transfusion today as well hopefully this will help with increased hemoglobin as well. Margarita
--- NOTE | 2022-06-06 15:28 | PM.PNORT ---
Progress Note: A&P Assessment and Plan (1) Status post total right knee replacement: Code(s): Z96.651 - Presence of right artificial knee joint Status: Acute Plan 71-year-old male postop day four right total knee replacement. The knee itself I think is doing well. His medical status looks like it is stabilizing somewhat. It is interesting to look at his labs relating to iron stores which are markedly low. His preoperative hemoglobin was above 14. He did get an iron infusion today. Appreciate the hospitalist's input. We will continue to try and move him forward with therapy. Will most certainly benefit from going to a rehab facility. Subjective Subjective Date/Time Seen: 06/06/22 15:28 Post Op day: 4 Principal diagnosis: Dx: status post right total knee replacement Interval history: 71-year-old male who is postop day four status post right total knee replacement. I reviewed the chart and discussed case with our hospitalist. Stool negative for occult blood. Arteriogram shows no active bleeding right lower extremity. His orthostatics have improved but he is still hypertensive. He did participate more fully in therapy today. Narcotics have been held and he is currently getting just IV Tylenol and doing quite well with that. Exam Const: General: cooperative, alert and awake Orientation/consciousness: patient oriented x3 ( This afternoon) HENMT: Head: normal to inspection Ears: hearing grossly normal bilaterally Resp: Effort & Inspection: able to speak in complete sentences GI: Inspection: non-distended GI Palp: No abdominal tenderness Neuro: General: patient oriented x3 Extrem: Other: Exam of right lower extremity does show some bruising about the knee. The swelling has receded below the knee. No tenderness in the lower leg compartments. Grossly neurovascular status is intact. Good pulses at the ankle. Mild effusion in the knee. No drainage coming from the knee joint. Psych: Mental Status: mental status grossly normal Objective Data Vital Signs Vital Signs: Vital Signs - 24 hr 06/05/22 15:48 06/05/22 16:48 06/05/22 16:00 Temperature 98.0 F 98.0 F Pulse Rate 93 91 93 Respiratory Rate 20 16 Blood Pressure 98/55 L 99/56 L Pulse Oximetry 95 97 Oxygen Delivery 06/05/22 23:19 06/05/22 20:00 06/05/22 20:00 Temperature 97.8 F Pulse Rate 104 H 94 Respiratory Rate 18 Blood Pressure 102/68 Pulse Oximetry 98 Oxygen Delivery Room Air 06/06/22 00:00 06/06/22 04:00 06/06/22 06:47 Temperature 98.6 F Pulse Rate 90 91 91 Respiratory Rate 16 Blood Pressure 113/60 Pulse Oximetry 97 Oxygen Delivery 06/06/22 08:50 06/06/22 08:00 06/06/22 11:30 Temperature Pulse Rate 91 Respiratory Rate Blood Pressure 109/68 Pulse Oximetry Oxygen Delivery Room Air 06/06/22 11:33 06/06/22 11:34 06/06/22 12:00 Temperature Pulse Rate 93 Respiratory Rate Blood Pressure 112/71 93/61 L Pulse Oximetry Oxygen Delivery Intake/Output Intake/Output: Intake & Output 06/03/22 06/04/22 06/05/22 06/06/22 23:59 23:59 23:59 23:59 Intake Total 2520 / 2520 4520 / 4520 1520 / 1520 360 / 360 Output Total 930 / 930 450 / 450 875 / 875 550 / 550 Balance 1590 / 1590 4070 / 4070 645 / 645 -190 / -190 Meds/Results Medications: Active Medications Generic Name Dose Route Start Last Admin Trade Name Freq PRN Reason Stop Dose Admin Hydrocodone Bitart/Acetaminophen 1 tab 06/02/22 11:23 06/04/22 07:31 Hydrocodone/Acetaminophen (*Crx) 5-325 Mg Tablet PO 1 tab Q4H PRN Administration Pain Rated 4-6 Hydrocodone Bitart/Acetaminophen 2 tab 06/02/22 11:23 06/03/22 23:15 Hydrocodone/Acetaminophen (*Crx) 5-325 Mg Tablet PO 2 tab Q6H PRN Administration Pain Rated 7-10 Al Hydrox/Mg Hydrox/Simethicone 30 ml 06/03/22 11:54 Mag Hydrox/Al Hydrox/Simeth 30 Ml Udc PO Q6H PRN Indigestion Alfuzosin HCl 10
[2022-06-06 15:46] LABS: Hematocrit 24.3 % (42.0-52.0); Hemoglobin 7.9 g/dL (14.0-18.0)
--- NOTE | 2022-06-06 17:46 | PDONCCN ---
[facility] - Date of Consult Date/Time: 06/06/22 17:46 Requesting Physician: Magno Arrington MD Primary Care Provider: Daniel Montero - Consult Narrative Reason for consult: Macrocytic anemia Narrative: Shaun Magallanes is a 71 year old male with history of left lower extremity DVT, hypertension, hyperlipidemia BPH underwent right knee replacement due to prolonged right knee pain. Patient denies any previous history of anemia. He has lost 50 lb weight in last couple of months duration. He denies being a vegetarian. He denies any bleeding including melena hematochezia. His last colonoscopy was more than 5 years ago. He has some tiredness and fatigue. Labs showed hemoglobin of 7.1 with elevated MCV of 107. Iron was less than 10 with iron saturation of less than 5%. LDH was normal and vitamin B12 was normal at 471. Hemoccult stool testing was negative. Patient received iron infusion in the hospital. He also received 1 unit of packed red blood cell. Review of Systems - Review of Systems All systems reviewed & are unremarkable except as noted in [facility] and [facility] Medical History: Medical History (Last Updated 06/02/22 @ 20:33 by Tana Montalvo PA-C) Benign prostatic hyperplasia Deep vein thrombosis of left lower extremity Onset Date: 2016 Degenerative arthritis of knee, bilateral Gastroesophageal reflux disease Gout Hyperlipidemia Hypertension Kidney stones Obstructive sleep apnea Mild sleep apnea. No longer using CPAP after weight loss. Short-term memory loss Surgical History: Surgical History (Last Updated 06/02/22 @ 13:30 by Tana Montalvo PA-C) History of arthroscopy of right knee Onset Date: 2012 History of bilateral inguinal hernia repair History of meniscectomy of left knee History of tonsillectomy Onset Date: 1950 History of umbilical hernia repair Family History: Family History (Last Reviewed 06/02/22 @ 13:30 by Tana Montalvo PA-C) Father Cancer Mother Cancer Sibling Cancer - Social History Social History: Social History (Last Updated 06/02/22 @ 20:34 by Tana Montalvo PA-C) Alcohol Use: Alcohol intake: never Substance Use: Substance use: never Substance use type: does not use Others: Spiritual care concerns: No Living Arrangements: Living arrangements: with family Smoking Status: Smoking status: Former smoker Tobacco type: cigarettes Smoking end date: 04/20/22 Smoking Pack-years: Years smoked: 55 Social Determinants of Health: Has the Lack of Transportation Kept You From Medical Appointments or From Getting Medications?: No Within the Past 12 Months, Were You Worried Whether Your Food Would Run Out Before You Got Money to Buy More?: Never True What is Your Housing Situation Today?: I Have Housing Are You Worried That in the Next 2 Months, You May Not Have Your Own Housing to Live In?: No Do You Have Trouble Paying Your Heating Or Electricity Bill?: No Do You Have Trouble Paying For Medicines?: No Are You Currently Unemployed and Looking for Work?: No Highest Level of Education Completed: High School Diploma/GED Do You Have Trouble With Childcare or the Care of a Family Member?: No Exam - Vital Signs Vital Signs - 24 hr 06/05/22 23:19 06/05/22 20:00 06/05/22 20:00 Temperature 36.6 C Pulse Rate 104 H 94 Respiratory Rate 18 Blood Pressure 102/68 Pulse Oximetry 98 Oxygen Delivery Room Air 06/06/22 00:00 06/06/22 04:00 06/06/22 06:47 Temperature 37.0 C Pulse Rate 90 91 91 Respiratory Rate 16 Blood Pressure 113/60 Pulse Oximetry 97 Oxygen Delivery 06/06/22 08:50 06/06/22 08:00 06/06/22 11:30 Temperature Pulse Rate 91 Respiratory Rate Blood Pressure 109/68 Pulse Oximetry Oxygen Delivery Room Air 06/06/22 11:33 06/06/22 11:34 06/06/22 12:00 Temperature Pulse Rate 93 Respiratory Rate Bl
[2022-06-06] MEDS: ROSUVASTATIN 10 MG TABLET 20 MG PO (20:03)
[2022-06-06] MEDS: DONEPEZIL HCL 5 MG TABLET PO (20:04)
[2022-06-06] MEDS: NORTRIPTYLINE HCL 25 MG CAPSULE PO (20:04)
[2022-06-07] VITALS (11 sets, daily range): BP systolic 99–121; BP diastolic 58–77; PULSE 91–133; RESP 18–22; TEMP 36.4–36.8; O2SAT 96–100
[2022-06-07 07:10] LABS: Basophils Percent Auto 0.3 % (0.2-1.2); Eosinophils Absolute Auto 0.1 K/mm3 (0-0.3); Eosinophils Percent Auto 3.3 % (0-4.4); Hematocrit 24.6 % (42.0-52.0); Immature Granulocyte Absolute 0.03 K/mm3 (0.00-0.031); Immature Granulocyte Percent A 0.8 % (0-0.5); Lymphocytes Absolute Auto 0.69 K/mm3 (0.9-3.2); Lymphocytes Percent Auto 17.3 % (18.3-44.2); Mean Corpuscular HGB Conc 32.5 g/dl (32-36); Mean Corpuscular Hemoglobin 32.5 pg (26-34); Mean Platelet Volume 9.1 fl (7.4-10.4); Monocytes Absolute Auto 0.4 K/mm3 (0.1-0.6); Neutrophils Absolute Auto 2.8 K/mm3 (1.3-6.7); Neutrophils Percent Auto 69.3 % (45.5-73.1); Platelet Count Result 239 k/mm3 (150-375); Red Blood Count 2.46 M/mm3 (4.6-6.20); Red Cell Distribution Width 14.6 % (11.5-14.5)
[2022-06-07 07:14] LABS: INR 1.2; Prothrombin Time 15.2 Seconds (11.1-14.7)
[2022-06-07] MEDS: SENNA/DOCUSATE SODIUM TABLET 2 TAB PO ×2 (09:06→17:06)
[2022-06-07] MEDS: IRON SUCROSE COMPLEX 500 MG in SODIUM CHLORIDE 0.9% IV 250 ML 78.57 MG IVPB (09:06)
[2022-06-07] MEDS: ASCORBIC ACID 500 MG TABLET 1000 MG PO (09:06)
[2022-06-07] MEDS: CHOLECALCIFEROL 1,000 UNITS TABLET 1000 UNITS PO (09:06)
[2022-06-07] MEDS: ASPIRIN 81 MG CHEWABLE TABLET PO (09:06)
[2022-06-07] MEDS: allopurinoL 150 MG TABLET PO (09:06)
[2022-06-07] MEDS: FERROUS SULFATE 324 MG TABLET PO (09:06)
[2022-06-07] MEDS: CYANOCOBALAMIN 1,000 MCG TABLET 1000 MCG PO (09:07)
[2022-06-07] MEDS: MONTELUKAST SODIUM 10 MG TABLET PO (09:07)
[2022-06-07] MEDS: VITAMIN E 400 UNIT CAPSULE PO (09:07)
[2022-06-07] MEDS: MEMANTINE 5 MG TABLET PO (09:07)
[2022-06-07] MEDS: PANTOPRAZOLE 40 MG TABLET PO (09:07)
--- NOTE | 2022-06-07 10:01 | PCOTNOTE ---
Attempted to see pt for Occupational Therapy treatment. Pt is currently receiving a unit of blood at this time. Pt states that he would like to wait until that is done before participating in therapy.
[2022-06-07 10:33] LABS: Alanine Aminotransferase 24 U/L (6-50); Albumin Level 3.2 g/dL (3.5-5.1); Alkaline Phosphatase 92 U/L (38-126); Anion Gap 8 mmol/L (8-16); Aspartate Amino Transferase 34 U/L (17-59); Bilirubin,Total 1.2 mg/dL (0.2-1.3); Blood Urea Nitrogen 8 mg/dL (9-20); Calcium 7.9 mg/dL (8.4-10.2); Carbon Dioxide 26 mmol/L (22-30); Chloride 103 mmol/L (98-107); Estimated CRCL calculation 119 ml/min; Estimated Glomerular Filt Rate > 60; Glucose 97 mg/dL (65-110); Magnesium 1.9 mg/dL (1.6-2.3); Sodium 137 mmol/L (137-145)
--- NOTE | 2022-06-07 11:12 | P.PNIM_ITS ---
Progress Note: A&P Assessment and Plan (1) Osteoarthritis of right knee: Code(s): M17.11 - Unilateral primary osteoarthritis, right knee Status: Resolved Assessment and Plan: Postoperative day 3 status post right total knee arthroplasty. * Wound care, pain control, DVT prophylaxis deferred to Dr. Arrington. (2) Hypertension: Code(s): I10 - Essential (primary) hypertension Status: Acute Assessment and Plan: Patient with +orthostatic hypotension noted when getting up with therapy today. * SBP dropped to 80-90s and patient is tachycardic HR 110-120s. Hold antihypertensives for now. * Given 500 cc NS bolus and repeated orthostatics, that were still noted to be positive. * Start maintenance fluids NS@100 mL/hour. Check orthostatic vitals Qshift until stable. * Consider SHIV hose when appropriate per ortho 06/04/22 * Orthostatics positive still. With a drop from 108 to 84? to 72 SBP from supine to sitting to standing. * Hold narcotics for now. * Have discussed this case with Dr. Arrington. * Discuss Shiv hose with orthopedist and he does not believe they will fit over patient's surgical leg. 06/05/22 * Orthostatics still positive. Patient's hemoglobin 7.1. * Patient with tachycardia and hypotension. Patient would benefit from transfusion. * 06/05/2022 patient received 1 unit of PRBCs. Will repeat H&H 1 hour after transfusion completes. 06/06/22 * Patient's orthostatics negative today. Although patient still has low blood pressure. 06/07/22 * Patient remains hypotensive. (3) Anemia: Code(s): D64.9 - Anemia, unspecified Status: Acute Assessment and Plan: Patient did not have CBC performed before knee surgery. Post surgery patient's hemoglobin was 10. Patient had positive orthostatics postoperatively and the days following his surgery hemoglobin dropped dramatically. * Patient's hemoglobin 7.1 and he is symptomatic with hypotension and tachycardia as well as dizziness. * Patient received 1 unit of PRBCs on 06/05/2022 * Anemia labs revealed iron less than 10, TIBC 203, % saturation less than 5, transferrin 101 and ferritin 471 * Patient given 200 mg iron transfusion 06/06 * B12 and folate normal; LDH 144; absolute retic 0.6 * Hematology and GI have been consulted and appreciate recommendations * Plans for bone marrow aspiration after iron deficiency is resolved (4) Benign prostatic hyperplasia: Code(s): N40.0 - Benign prostatic hyperplasia without lower urinary tract symptoms Status: Chronic Assessment and Plan: With acute retention postop. Straight cathed x1 with -600 mL. Bladder scan Q6 and PRN. straight cath if >400 mL. * Continue alfuzosin when blood pressure is improved, will change it to HS dosing to attempt to prevent orthostatic hypotension and next dose scheduled 06/04 at HS. * Patient with continued positive orthostatics. Alfuzosin held due to BP. (5) Gastroesophageal reflux disease: Code(s): K21.9 - Gastro-esophageal reflux disease without esophagitis Status: Chronic Assessment and Plan: Continue PPI and add PRN mylanta. (6) History of deep venous thrombosis: Code(s): Z86.718 - Personal history of other venous thrombosis and embolism Status: Chronic Assessment and Plan: DVT in 2017. Patient is on Xarelto postop. (7) Status post total right knee replacement: Code(s): Z96.651 - Presence of right artificial knee joint
--- NOTE | 2022-06-07 11:12 | PM.IMPN ---
Progress Note: A&P Assessment and Plan (1) Osteoarthritis of right knee: Code(s): M17.11 - Unilateral primary osteoarthritis, right knee Status: Resolved Assessment and Plan: Postoperative day 3 status post right total knee arthroplasty. Wound care, pain control, DVT prophylaxis deferred to Dr. Arrington. (2) Hypertension: Code(s): I10 - Essential (primary) hypertension Status: Acute Assessment and Plan: Patient with +orthostatic hypotension noted when getting up with therapy today. SBP dropped to 80-90s and patient is tachycardic HR 110-120s. Hold antihypertensives for now. Given 500 cc NS bolus and repeated orthostatics, that were still noted to be positive. Start maintenance fluids NS@100 mL/hour. Check orthostatic vitals Qshift until stable. Consider SHIV hose when appropriate per ortho 06/04/22 Orthostatics positive still. With a drop from 108 to 84? to 72 SBP from supine to sitting to standing. Hold narcotics for now. Have discussed this case with Dr. Arrington. Discuss Shiv hose with orthopedist and he does not believe they will fit over patient's surgical leg. 06/05/22 Orthostatics still positive. Patient's hemoglobin 7.1. Patient with tachycardia and hypotension. Patient would benefit from transfusion. 06/05/2022 patient received 1 unit of PRBCs. Will repeat H&H 1 hour after transfusion completes. 06/06/22 Patient's orthostatics negative today. Although patient still has low blood pressure. 06/07/22 Patient remains hypotensive. (3) Anemia: Code(s): D64.9 - Anemia, unspecified Status: Acute Assessment and Plan: Patient did not have CBC performed before knee surgery. Post surgery patient's hemoglobin was 10. Patient had positive orthostatics postoperatively and the days following his surgery hemoglobin dropped dramatically. Patient's hemoglobin 7.1 and he is symptomatic with hypotension and tachycardia as well as dizziness. Patient received 1 unit of PRBCs on 06/05/2022 Anemia labs revealed iron less than 10, TIBC 203, % saturation less than 5, transferrin 101 and ferritin 471 Patient given 200 mg iron transfusion 06/06 B12 and folate normal; LDH 144; absolute retic 0.6 Hematology and GI have been consulted and appreciate recommendations Plans for bone marrow aspiration after iron deficiency is resolved (4) Benign prostatic hyperplasia: Code(s): N40.0 - Benign prostatic hyperplasia without lower urinary tract symptoms Status: Chronic Assessment and Plan: With acute retention postop. Straight cathed x1 with -600 mL. Bladder scan Q6 and PRN. straight cath if >400 mL. Continue alfuzosin when blood pressure is improved, will change it to HS dosing to attempt to prevent orthostatic hypotension and next dose scheduled 06/04 at HS. Patient with continued positive orthostatics. Alfuzosin held due to BP. (5) Gastroesophageal reflux disease: Code(s): K21.9 - Gastro-esophageal reflux disease without esophagitis Status: Chronic Assessment and Plan: Continue PPI and add PRN mylanta. (6) History of deep venous thrombosis: Code(s): Z86.718 - Personal history of other venous thrombosis and embolism Status: Chronic Assessment and Plan: DVT in 2017. Patient is on Xarelto postop. (7) Status post total right knee replacement: Code(s): Z96.651 - Presence of right artificial knee joint Status: Acute Assessment and Plan: Postop day 3 right total knee replacement.? Patient has swelling and tenderness below the knee. There does not appear to be significant blood pooling in the right knee. CTA of right lower extremity performed today and results revealed incomplete opacification of the distal left peroneal artery, mild atherosclerosis. Continue to monitor the right lower extremity. Subjective Date/time seen: 06/07/22 11:12 Interval his
[2022-06-07] MEDS: POTASSIUM CHLORIDE 20 MEQ PACKET (FOR LIQUID) 80 MEQ PO (11:31)
--- NOTE | 2022-06-07 11:55 | PCOTNOTE ---
A 2nd attempt was made to have pt participate in Occupational therapy treatment. Pt is currently working with physical therapy at this time. Will attempt later today.
--- NOTE | 2022-06-07 12:35 | PM.PNORT ---
Progress Note: A&P Assessment and Plan (1) Status post total right knee replacement: Code(s): Z96.651 - Presence of right artificial knee joint Status: Acute Plan 71-year-old male postop day 5 right total knee replacement. The knee itself continues to do well. Continue to mobilize with therapy. He is getting another iron infusion today. He is getting frustrated with the amount of time being in the hospital but the importance of his stay was discussed with him. Appreciate hospitalist input. Subjective Subjective Date/Time Seen: 06/07/22 12:35 Post Op day: 5 Principal diagnosis: Dx: status post right total knee replacement Interval history: 71-year-old male who is postop day 5 s/p right total knee replacement. Continue to mobilize with therapy but still gets lightheaded with standing. He is becoming a bit frustrated with the length of the process while admitted. Review of Systems Constitutional: Constitutional: Reports as per HPI and Reports no additional constitutional complaints Musculoskeletal: Musculoskeletal: Reports no additional musculoskeletal complaints and Reports as per HPI Exam Const: General: cooperative, alert and awake Nutritional Appearance: well nourished Orientation/consciousness: patient oriented x3 HENMT: Head: normal to inspection Ears: hearing grossly normal bilaterally Resp: Effort & Inspection: able to speak in complete sentences GI: Inspection: non-distended GI Palp: No abdominal tenderness Skin: General skin exam: ecchymosis (Right knee, popliteal fossa. Left general shoulder and posterior arm) and no erythema Neuro: General: patient oriented x3 Extrem: Other: Exam of right lower extremity does show some bruising about the knee. Mild effusion, consistent with recent total knee arthroplasty. Dressing is clean and dry. Calves negative. Neurovascular status right lower extremity intact Psych: Mental Status: mental status grossly normal Objective Data Vital Signs Vital Signs: Vital Signs - 24 hr 06/06/22 14:00 06/06/22 16:15 06/06/22 16:00 Temperature 97.3 F L Pulse Rate 100 95 Respiratory Rate 18 Blood Pressure 129/75 Pulse Oximetry 100 93 Oxygen Delivery Room Air 06/06/22 22:00 06/06/22 20:00 06/06/22 22:05 Temperature 99.1 F Pulse Rate 119 H Respiratory Rate 16 Blood Pressure 146/74 H 129/73 110/58 L Pulse Oximetry 99 Oxygen Delivery 06/06/22 20:00 06/06/22 20:00 06/07/22 00:00 Temperature Pulse Rate 119 H 111 H Respiratory Rate Blood Pressure Pulse Oximetry Oxygen Delivery Room Air 06/07/22 04:00 06/07/22 06:00 06/07/22 08:00 Temperature 98.3 F 98.3 F Pulse Rate 101 H 100 97 Respiratory Rate 18 20 Blood Pressure 121/62 115/73 Pulse Oximetry 96 97 Oxygen Delivery 06/07/22 08:49 06/07/22 08:50 06/07/22 08:00 Temperature 98.3 F 98.3 F Pulse Rate 111 H 125 H Respiratory Rate 20 22 H Blood Pressure 118/64 99/62 L Pulse Oximetry 100 98 Oxygen Delivery Room Air 06/07/22 08:00 Temperature Pulse Rate 104 H Respiratory Rate Blood Pressure Pulse Oximetry Oxygen Delivery Intake/Output Intake/Output: Intake & Output 06/04/22 06/05/22 06/06/22 06/07/22 23:59 23:59 23:59 23:59 Intake Total 4520 1520 360 722 Output Total 450 092 695 1280 Balance 4072 894 -978 -[phone] Meds/Results Medications: Active Medications Generic Name Dose Route Start Last Admin Trade Name Freq PRN Reason Stop Dose Admin Hydrocodone Bitart/Acetaminophen 1 tab 06/02/22 11:23 06/04/22 07:31 Hydrocodone/Acetaminophen (*Crx) 5-325 Mg Tablet PO 1 tab Q4H PRN Administration Pain Rated 4-6 Hydrocodone Bitart/Acetaminophen 2 tab 06/02/22 11:23 06/03/22 23:15 Hydrocodone/Acetaminophen (*Crx) 5-325 Mg Tablet PO 2 tab Q6H PRN Administration Pain Rated 7-10 Al Hydrox/Mg Hydrox/Simethicone 30 ml 06/03/22 11:54 Mag Hydrox/Al Hydrox/Simeth 30 Ml Udc PO
--- NOTE | 2022-06-07 14:38 | WPDGICN ---
Assessment and Plan Assessment and plan (1) Acute blood loss anemia: Code(s): D62 - Acute posthemorrhagic anemia Status: Acute Assessment and Plan: wonder if from surgery denies overt gib and FOBT was negative still he needs endoscopic evaluation but he says that will be hard to complete bowel prep since had recent knee surgery I would favor wait 3-4 week and I can do both egd and colonoscopy as outpatient specially since no obvious gib hematology on board and getting iv iron (2) Orthostatic hypotension: Code(s): I95.1 - Orthostatic hypotension Status: Acute Assessment and Plan: from anemia (3) Status post total right knee replacement: Code(s): Z96.651 - Presence of right artificial knee joint Status: Acute Assessment and Plan: recovering (4) Hypertension: Code(s): I10 - Essential (primary) hypertension Status: Acute (5) Weight loss: Code(s): R63.4 - Abnormal weight loss Status: Acute GI Consult Note Consult date/time: 06/07/22 14:38 Reason for consult: symptomatic anemia HPI: Shaun Magallanes is a 71 year old male with history of left lower extremity DVT, hypertension, who underwent right knee replacement due to prolonged right knee pain because OA (this is second replacement, last time about 10 years ago).?He says that in purpose lost 50 lb weight in order to get ready for surgery (mostly with diet). His last colonoscopy more than 5 years ago. After surgery noted worsening anemia with hemoglobin ~ 7.1 with elevated MCV of 107.? Iron was less than 10 with iron saturation of less than 5%.? LDH was normal and vitamin B12 was normal at 471.?Hematology on board. Occult blood in stool was negative, he denies overt gib, no reflux symptoms, no n/v. Still recovering from knee surgery. Review of Systems Constitutional: Constitutional: Reports fatigue Eyes: Eyes: Denies blurry vision ENT: Reports Normal hearing present Cardiovascular: Cardiovascular: Reports lightheadedness Respiratory: Respiratory: Denies cough Gastrointestinal: Gastrointestinal: Denies abdominal pain Genitourinary: Genitourinary: Denies dysuria Musculoskeletal: Musculoskeletal: Reports arthralgias Integumentary/Breasts: Skin/Breast: Denies rash Neurologic: Denies confusion Psychiatric: Psychiatric: Denies behavioral changes [facility] Past Medical History Medical History (Updated 06/07/22 @ 14:47 by Navjot Mccullough MD) Acute blood loss anemia Benign prostatic hyperplasia Deep vein thrombosis of left lower extremity (2017) Degenerative arthritis of knee, bilateral Gastroesophageal reflux disease Gout Hyperlipidemia Hypertension Kidney stones Obstructive sleep apnea Mild sleep apnea. No longer using CPAP after weight loss. Orthostatic hypotension Short-term memory loss Weight loss Surgical History Surgical History (Updated 06/06/22 @ 17:51 by Jean Paul Ochoa MD) History of arthroscopy of right knee (2012) History of bilateral inguinal hernia repair History of meniscectomy of left knee History of tonsillectomy (1950) History of umbilical hernia repair Family History Family History Father Cancer Mother Cancer Sibling Cancer Social History Social History (Updated 06/02/22 @ 20:34 by Tana Montalvo PA-C) Social History: Surrogate medical decision maker: Dago Thomas, spouse. Code status: Full code. Years smoked: 55 Smoking status: Former smoker Tobacco type: cigarettes Smoking end date: 04/20/22 Alcohol intake: never Substance use: never Substance use type: does not use Lack of Transportation: No Lack of Food: Never True Current Housing: I Have Housing Concerned About Future Housing: No Difficulty Paying Gas/Electric Bills: No Difficulty Paying for Meds: No Currently Unemployed: No Education: High School Diploma/GED Difficulty w/
[2022-06-07] MEDS: NORTRIPTYLINE HCL 25 MG CAPSULE PO (20:27)
[2022-06-07] MEDS: DONEPEZIL HCL 5 MG TABLET PO (20:27)
[2022-06-07] MEDS: ROSUVASTATIN 10 MG TABLET 20 MG PO (20:27)
[2022-06-08] VITALS (9 sets, daily range): BP systolic 102–125; BP diastolic 63–77; PULSE 88–115; RESP 14–18; TEMP 36.8–37.1; O2SAT 95–98
[2022-06-08 06:25] LABS: Basophils Percent Auto 0.7 % (0.2-1.2); Eosinophils Absolute Auto 0.1 K/mm3 (0-0.3); Eosinophils Percent Auto 3.1 % (0-4.4); Hematocrit 27.4 % (42.0-52.0); Hemoglobin 8.7 g/dL (14.0-18.0); Immature Granulocyte Absolute 0.08 K/mm3 (0.00-0.031); Immature Granulocyte Percent A 1.9 % (0-0.5); Lymphocytes Absolute Auto 0.75 K/mm3 (0.9-3.2); Lymphocytes Percent Auto 17.7 % (18.3-44.2); Mean Corpuscular HGB Conc 31.8 g/dl (32-36); Mean Corpuscular Volume 103.8 fl (80-100); Mean Platelet Volume 9.3 fl (7.4-10.4); Monocytes Absolute Auto 0.4 K/mm3 (0.1-0.6); Monocytes Percent Auto 9.5 % (2.6-8.5); Neutrophils Absolute Auto 2.8 K/mm3 (1.3-6.7); Neutrophils Percent Auto 67.1 % (45.5-73.1); Platelet Count Result 269 k/mm3 (150-375); Red Blood Count 2.64 M/mm3 (4.6-6.20); Red Cell Distribution Width 14.6 % (11.5-14.5); White Blood Count 4.2 K/mm3 (4.5-10.0)
[2022-06-08 06:38] LABS: Alanine Aminotransferase 24 U/L (6-50); Albumin Level 3.2 g/dL (3.5-5.1); Alkaline Phosphatase 94 U/L (38-126); Anion Gap 6 mmol/L (8-16); Aspartate Amino Transferase 32 U/L (17-59); Bilirubin,Total 1.1 mg/dL (0.2-1.3); Blood Urea Nitrogen 8 mg/dL (9-20); Carbon Dioxide 27 mmol/L (22-30); Chloride 105 mmol/L (98-107); Estimated CRCL calculation 120 ml/min; Estimated Glomerular Filt Rate > 60; Glucose 99 mg/dL (65-110); Potassium 3.2 mmol/L (3.4-5.0); Sodium 138 mmol/L (137-145)
[2022-06-08] MEDS: ASPIRIN 81 MG CHEWABLE TABLET PO (08:51)
[2022-06-08] MEDS: CYANOCOBALAMIN 1,000 MCG TABLET 1000 MCG PO (08:52)
[2022-06-08] MEDS: allopurinoL 150 MG TABLET PO (08:52)
[2022-06-08] MEDS: FERROUS SULFATE 324 MG TABLET PO (08:52)
[2022-06-08] MEDS: ASCORBIC ACID 500 MG TABLET 1000 MG PO (08:52)
[2022-06-08] MEDS: VITAMIN E 400 UNIT CAPSULE PO (08:52)
[2022-06-08] MEDS: MEMANTINE 5 MG TABLET PO (08:53)
[2022-06-08] MEDS: IRON SUCROSE COMPLEX 500 MG in SODIUM CHLORIDE 0.9% IV 250 ML 78.57 MG IVPB (08:53)
[2022-06-08] MEDS: CHOLECALCIFEROL 1,000 UNITS TABLET 1000 UNITS PO (08:53)
[2022-06-08] MEDS: PANTOPRAZOLE 40 MG TABLET PO (08:55)
[2022-06-08] MEDS: MONTELUKAST SODIUM 10 MG TABLET PO (08:55)
[2022-06-08 09:30] LABS: Ammonia < 9 umol/L (9-30)
[2022-06-08] MEDS: POTASSIUM CHLORIDE 20 MEQ TABLET 80 MEQ PO (13:26)
--- NOTE | 2022-06-08 14:00 | P.PNIM_ITS ---
Progress Note: A&P Assessment and Plan (1) Osteoarthritis of right knee: Code(s): M17.11 - Unilateral primary osteoarthritis, right knee Status: Resolved Assessment and Plan: Postoperative day 3 status post right total knee arthroplasty. * Wound care, pain control, DVT prophylaxis deferred to Dr. Arrington. (2) Hypertension: Code(s): I10 - Essential (primary) hypertension Status: Acute Assessment and Plan: Patient with +orthostatic hypotension noted when getting up with therapy today. * SBP dropped to 80-90s and patient is tachycardic HR 110-120s. Hold antihypertensives for now. * Given 500 cc NS bolus and repeated orthostatics, that were still noted to be positive. * Start maintenance fluids NS@100 mL/hour. Check orthostatic vitals Qshift until stable. * Consider SHIV hose when appropriate per ortho 06/04/22 * Orthostatics positive still. With a drop from 108 to 84? to 72 SBP from supine to sitting to standing. * Hold narcotics for now. * Have discussed this case with Dr. Arrington. * Discuss Shiv hose with orthopedist and he does not believe they will fit over patient's surgical leg. 06/05/22 * Orthostatics still positive. Patient's hemoglobin 7.1. * Patient with tachycardia and hypotension. Patient would benefit from transfusion. * 06/05/2022 patient received 1 unit of PRBCs. 06/06/22 * Patient's orthostatics negative today. Although patient still has low blood pressure. 06/07/22 * Patient remains hypotensive. 06/08/22 * Patient is stable and orthostatics are negative. Patient has maintained a normal blood pressure and can be discharged to rehab. (3) Anemia: Code(s): D64.9 - Anemia, unspecified Status: Acute Assessment and Plan: Patient did not have CBC performed before knee surgery. Post surgery patient's hemoglobin was 10. Patient had positive orthostatics postoperatively and the days following his surgery hemoglobin dropped dramatically. * Patient's hemoglobin 7.1 and he is symptomatic with hypotension and tachycardia as well as dizziness. * Patient received 1 unit of PRBCs on 06/05/2022 * Anemia labs revealed iron less than 10, TIBC 203, % saturation less than 5, transferrin 101 and ferritin 471 * Patient given 200 mg iron transfusion 06/06 * B12 and folate normal; LDH 144; absolute retic 0.6 * Hematology and GI have been consulted and appreciate recommendations * Plans for bone marrow aspiration after iron deficiency is resolved * 06/08 Patient's H&H is now trending upwards. Completed iron transfusions. (4) Benign prostatic hyperplasia: Code(s): N40.0 - Benign prostatic hyperplasia without lower urinary tract symptoms Status: Chronic Assessment and Plan: With acute retention postop. Straight cathed x1 with -600 mL. Bladder scan Q6 and PRN. straight cath if >400 mL. * Continue alfuzosin when blood pressure is improved, will change it to HS dosing to attempt to prevent orthostatic hypotension and next dose scheduled 06/04 at HS. * Patient with continued positive orthostatics. Alfuzosin held due to BP. Can start finasteride. (5) Gastroesophageal reflux disease: Code(s): K21.9 - Gastro-esophageal reflux disease without esophagitis Status: Chronic Assessment and Plan: Continue PPI and add PRN mylanta. (6) History of deep venous thrombosis: Code(s): Z86.718 - Personal history of other venous thrombosis and embolism Status: Chronic Assessment and Plan: DVT
--- NOTE | 2022-06-08 14:00 | PM.IMPN ---
Progress Note: A&P Assessment and Plan (1) Osteoarthritis of right knee: Code(s): M17.11 - Unilateral primary osteoarthritis, right knee Status: Resolved Assessment and Plan: Postoperative day 3 status post right total knee arthroplasty. Wound care, pain control, DVT prophylaxis deferred to Dr. Arrington. (2) Hypertension: Code(s): I10 - Essential (primary) hypertension Status: Acute Assessment and Plan: Patient with +orthostatic hypotension noted when getting up with therapy today. SBP dropped to 80-90s and patient is tachycardic HR 110-120s. Hold antihypertensives for now. Given 500 cc NS bolus and repeated orthostatics, that were still noted to be positive. Start maintenance fluids NS@100 mL/hour. Check orthostatic vitals Qshift until stable. Consider SHIV hose when appropriate per ortho 06/04/22 Orthostatics positive still. With a drop from 108 to 84? to 72 SBP from supine to sitting to standing. Hold narcotics for now. Have discussed this case with Dr. Arrington. Discuss Shiv hose with orthopedist and he does not believe they will fit over patient's surgical leg. 06/05/22 Orthostatics still positive. Patient's hemoglobin 7.1. Patient with tachycardia and hypotension. Patient would benefit from transfusion. 06/05/2022 patient received 1 unit of PRBCs. 06/06/22 Patient's orthostatics negative today. Although patient still has low blood pressure. 06/07/22 Patient remains hypotensive. 06/08/22 Patient is stable and orthostatics are negative. Patient has maintained a normal blood pressure and can be discharged to rehab. (3) Anemia: Code(s): D64.9 - Anemia, unspecified Status: Acute Assessment and Plan: Patient did not have CBC performed before knee surgery. Post surgery patient's hemoglobin was 10. Patient had positive orthostatics postoperatively and the days following his surgery hemoglobin dropped dramatically. Patient's hemoglobin 7.1 and he is symptomatic with hypotension and tachycardia as well as dizziness. Patient received 1 unit of PRBCs on 06/05/2022 Anemia labs revealed iron less than 10, TIBC 203, % saturation less than 5, transferrin 101 and ferritin 471 Patient given 200 mg iron transfusion 06/06 B12 and folate normal; LDH 144; absolute retic 0.6 Hematology and GI have been consulted and appreciate recommendations Plans for bone marrow aspiration after iron deficiency is resolved 06/08 Patient's H&H is now trending upwards. Completed iron transfusions. (4) Benign prostatic hyperplasia: Code(s): N40.0 - Benign prostatic hyperplasia without lower urinary tract symptoms Status: Chronic Assessment and Plan: With acute retention postop. Straight cathed x1 with -600 mL. Bladder scan Q6 and PRN. straight cath if >400 mL. Continue alfuzosin when blood pressure is improved, will change it to HS dosing to attempt to prevent orthostatic hypotension and next dose scheduled 06/04 at HS. Patient with continued positive orthostatics. Alfuzosin held due to BP. Can start finasteride. (5) Gastroesophageal reflux disease: Code(s): K21.9 - Gastro-esophageal reflux disease without esophagitis Status: Chronic Assessment and Plan: Continue PPI and add PRN mylanta. (6) History of deep venous thrombosis: Code(s): Z86.718 - Personal history of other venous thrombosis and embolism Status: Chronic Assessment and Plan: DVT in 2017. Patient is on Xarelto postop. (7) Status post total right knee replacement: Code(s): Z96.651 - Presence of right artificial knee joint Status: Acute Assessment and Plan: Postop day 3 right total knee replacement.? Patient has swelling and tenderness below the knee. There does not appear to be significant blood pooling in the right knee. CTA of right lower extremity performed today and results revealed incomplete opacification
[2022-06-08 16:40] LABS: Anion Gap 8 mmol/L (8-16); Blood Urea Nitrogen 9 mg/dL (9-20); Calcium 8.6 mg/dL (8.4-10.2); Carbon Dioxide 26 mmol/L (22-30); Chloride 104 mmol/L (98-107); Estimated CRCL calculation 95 ml/min; Estimated Glomerular Filt Rate > 60; Glucose 125 mg/dL (65-110); Potassium 3.8 mmol/L (3.4-5.0); Sodium 138 mmol/L (137-145)
--- NOTE | 2022-06-08 19:31 | WPDGIPROGNO ---
Progress Note: A&P Assessment and Plan (1) Acute blood loss anemia: Code(s): D62 - Acute posthemorrhagic anemia Status: Acute Assessment and Plan: h/h stable probably multifactorial after knee surgery FOBT negative egd and colonoscopy in 4-6 weeks as outpatient, my office will set up (2) Orthostatic hypotension: Code(s): I95.1 - Orthostatic hypotension Status: Acute Assessment and Plan: resolved (3) Weight loss: Code(s): R63.4 - Abnormal weight loss Status: Acute Assessment and Plan: stable (4) Status post total right knee replacement: Code(s): Z96.651 - Presence of right artificial knee joint Status: Acute Assessment and Plan: will be discharged tomorrow to rehab Subjective Date/time seen: 06/08/22 19:31 Interval history: no acute events, doing ok Review of Systems Review of Systems: All systems reviewed & are unremarkable except as noted in HPI and below Exam Narrative: GENERAL:? Comfortable, no acute distress HENMT: moist mucous membranes EYES: EOM intact b/l NECK: no lymphadenopathy RESPIRATORY: clear to auscultation CARDIO: RRR GI: soft, nontender, bowel sounds present SKIN: no rashes EXTREMITIES: Right knee and calf edema with moderate bruising on the backside of patient's leg. Neuro: non-focal Psych: normal affect Objective Data Vital Signs Vital Signs: Vital Signs - 24 hr 06/07/22 20:00 06/07/22 21:30 06/07/22 21:30 Temperature 97.5 F L Pulse Rate 93 95 120 H Respiratory Rate 18 20 20 Blood Pressure 116/64 100/68 107/58 L Pulse Oximetry 97 97 99 Oxygen Delivery 06/07/22 20:00 06/07/22 20:00 06/08/22 00:00 Temperature Pulse Rate 91 102 H Respiratory Rate Blood Pressure Pulse Oximetry Oxygen Delivery Room Air 06/08/22 04:00 06/08/22 05:17 06/08/22 08:01 Temperature 98.2 F Pulse Rate 88 88 93 Respiratory Rate 16 Blood Pressure 125/71 Pulse Oximetry 97 Oxygen Delivery 06/08/22 08:00 06/08/22 14:00 06/08/22 13:45 Temperature 98.5 F Pulse Rate 89 89 Respiratory Rate 18 Blood Pressure 103/77 103/77 Pulse Oximetry 98 Oxygen Delivery Room Air 06/08/22 13:45 06/08/22 13:45 06/08/22 12:00 Temperature Pulse Rate 104 H 115 H 97 Respiratory Rate Blood Pressure 105/65 102/63 Pulse Oximetry Oxygen Delivery 06/08/22 16:00 Temperature Pulse Rate 88 Respiratory Rate Blood Pressure Pulse Oximetry Oxygen Delivery Intake/Output Intake/Output: Intake & Output 06/05/22 06/06/22 06/07/22 06/08/22 23:59 23:59 23:59 23:59 Intake Total 0955 071 6247 1395 Output Total 960 563 2794 1650 Balance 126 -905 983 -702 Meds/Results Medications: Active Medications Generic Name Dose Route Start Last Admin Trade Name Freq PRN Reason Stop Dose Admin Hydrocodone Bitart/Acetaminophen 1 tab 06/02/22 11:23 06/04/22 07:31 Hydrocodone/Acetaminophen (*Crx) 5-325 Mg Tablet PO 1 tab Q4H PRN Administration Pain Rated 4-6 Hydrocodone Bitart/Acetaminophen 2 tab 06/02/22 11:23 06/03/22 23:15 Hydrocodone/Acetaminophen (*Crx) 5-325 Mg Tablet PO 2 tab Q6H PRN Administration Pain Rated 7-10 Al Hydrox/Mg Hydrox/Simethicone 30 ml 06/03/22 11:54 Mag Hydrox/Al Hydrox/Simeth 30 Ml Udc PO Q6H PRN Indigestion Alfuzosin HCl 10 mg 06/04/22 21:00 06/06/22 20:04 Alfuzosin 10 Mg Er Tablet PO 10 mg HS DIONISIO Administration Allopurinol 150 mg 06/03/22 09:00 06/08/22 08:52 Allopurinol 150 Mg Tablet PO 150 mg DAILY DIONISIO Administration Amiloride HCl 5 mg 06/03/22 09:00 06/03/22 14:29 Amiloride Hcl 5 Mg Tablet PO Not Given DAILY DIONISIO Amlodipine Besylate 2.5 mg 06/03/22 09:00 06/03/22 14:29 Amlodipine Besylate 2.5 Mg Tablet PO Not Given DAILY DIONISIO Ascorbic Acid 1,000 mg 06/03/22 09:00 06/08/22 08:52 Ascorbic Acid 500 Mg Tablet PO 1,000 mg [facility] Administra
[2022-06-08] MEDS: ROSUVASTATIN 10 MG TABLET 20 MG PO (21:22)
[2022-06-08] MEDS: DONEPEZIL HCL 5 MG TABLET PO (21:22)
[2022-06-08] MEDS: NORTRIPTYLINE HCL 25 MG CAPSULE PO (21:22)
[2022-06-09 05:55] VITALS: BP 125/66; PULSE 101; RESP 14; TEMP 36.1; O2SAT 98
[2022-06-09 07:07] LABS: Basophils Percent Auto 0.5 % (0.2-1.2); Eosinophils Absolute Auto 0.1 K/mm3 (0-0.3); Eosinophils Percent Auto 2.1 % (0-4.4); Hematocrit 28.8 % (42.0-52.0); Hemoglobin 9.1 g/dL (14.0-18.0); Immature Granulocyte Absolute 0.11 K/mm3 (0.00-0.031); Immature Granulocyte Percent A 1.7 % (0-0.5); Lymphocytes Absolute Auto 1.04 K/mm3 (0.9-3.2); Mean Corpuscular HGB Conc 31.6 g/dl (32-36); Mean Corpuscular Volume 104.3 fl (80-100); Monocytes Absolute Auto 0.6 K/mm3 (0.1-0.6); Monocytes Percent Auto 8.9 % (2.6-8.5); Neutrophils Absolute Auto 4.6 K/mm3 (1.3-6.7); Neutrophils Percent Auto 70.8 % (45.5-73.1); Platelet Count Result 330 k/mm3 (150-375); Red Blood Count 2.76 M/mm3 (4.6-6.20); White Blood Count 6.5 K/mm3 (4.5-10.0)
[2022-06-09 07:30] LABS: Alanine Aminotransferase 24 U/L (6-50); Albumin Level 3.3 g/dL (3.5-5.1); Alkaline Phosphatase 102 U/L (38-126); Anion Gap 5 mmol/L (8-16); Aspartate Amino Transferase 30 U/L (17-59); Bilirubin,Total 0.9 mg/dL (0.2-1.3); Blood Urea Nitrogen 8 mg/dL (9-20); Carbon Dioxide 29 mmol/L (22-30); Chloride 102 mmol/L (98-107); Estimated CRCL calculation 104 ml/min; Estimated Glomerular Filt Rate > 60; Glucose 104 mg/dL (65-110); Potassium 3.9 mmol/L (3.4-5.0); Sodium 136 mmol/L (137-145)
--- NOTE | 2022-06-09 07:52 | PM.PNORT ---
Progress Note: A&P Assessment and Plan (1) Status post total right knee replacement: Code(s): Z96.651 - Presence of right artificial knee joint Status: Acute Plan 71-year-old male postop day 7 right total knee replacement. The knee itself continues to do well. He will continue with Xarelto for DVT prophylaxis. Plan to be discharged and is in rehab today and will continue with therapy. Dressing over the incision can be discontinued at discharge. He does have a follow-up scheduled in our office in 1 week and he will keep that. Subjective Subjective Date/Time Seen: 06/09/22 07:52 Post Op day: 7 Principal diagnosis: Dx: status post right total knee replacement Interval history: 71-year-old male who is postop day 7 s/p right total knee replacement. Having no significant pain at the knee and is tolerating mobilization well. He was seen by GI this weekend and is aware that he is to follow-up with them in 4-6 weeks. He would like to be discharged to [place] rehab today. Review of Systems Constitutional: Constitutional: Reports as per HPI and Reports no additional constitutional complaints Musculoskeletal: Musculoskeletal: Reports no additional musculoskeletal complaints and Reports as per HPI Exam Const: General: cooperative, alert and awake Nutritional Appearance: well nourished Orientation/consciousness: patient oriented x3 HENMT: Head: normal to inspection Ears: hearing grossly normal bilaterally Resp: Effort & Inspection: able to speak in complete sentences GI: Inspection: non-distended GI Palp: No abdominal tenderness Skin: General skin exam: ecchymosis (Right knee, popliteal fossa. Left general shoulder and posterior arm) and no erythema Neuro: General: patient oriented x3 Extrem: Other: Exam of right lower extremity does show some bruising about the knee. Mild effusion, consistent with recent total knee arthroplasty. Dressing is clean and dry. Calves negative. Neurovascular status right lower extremity intact Psych: Mental Status: mental status grossly normal Objective Data Vital Signs Vital Signs: Vital Signs - 24 hr 06/08/22 08:01 06/08/22 08:00 06/08/22 14:00 Temperature 98.5 F Pulse Rate 93 89 Respiratory Rate 18 Blood Pressure 103/77 Pulse Oximetry 98 Oxygen Delivery Room Air 06/08/22 13:45 06/08/22 13:45 06/08/22 13:45 Temperature Pulse Rate 89 104 H 115 H Respiratory Rate Blood Pressure 103/77 105/65 102/63 Pulse Oximetry Oxygen Delivery 06/08/22 12:00 06/08/22 16:00 06/08/22 22:00 Temperature 98.8 F Pulse Rate 97 88 94 Respiratory Rate 14 Blood Pressure 112/63 Pulse Oximetry 95 Oxygen Delivery 06/09/22 05:55 Temperature 97.0 F L Pulse Rate 101 H Respiratory Rate 14 Blood Pressure 125/66 Pulse Oximetry 98 Oxygen Delivery Intake/Output Intake/Output: Intake & Output 06/06/22 06/07/22 06/08/22 06/09/22 23:59 23:59 23:59 23:59 Intake Total 360 1927 1395 750 Output Total 875 1805 1650 650 Balance -515 122 -255 100 Meds/Results Medications: Active Medications Generic Name Dose Route Start Last Admin Trade Name Freq PRN Reason Stop Dose Admin Hydrocodone Bitart/Acetaminophen 1 tab 06/02/22 11:23 06/04/22 07:31 Hydrocodone/Acetaminophen (*Crx) 5-325 Mg Tablet PO 1 tab Q4H PRN Administration Pain Rated 4-6 Hydrocodone Bitart/Acetaminophen 2 tab 06/02/22 11:23 06/03/22 23:15 Hydrocodone/Acetaminophen (*Crx) 5-325 Mg Tablet PO 2 tab Q6H PRN Administration Pain Rated 7-10 Al Hydrox/Mg Hydrox/Simethicone 30 ml 06/03/22 11:54 Mag Hydrox/Al Hydrox/Simeth 30 Ml Udc PO Q6H PRN Indigestion Alfuzosin HCl 10 mg 06/04/22 21:00 06/06/22 20:04 Alfuzosin 10 Mg Er Tablet PO 10 mg HS DIONISIO Administration Allopurinol 150 mg 06/03/22 09:00 06/08/22 08:52 Allopurinol 150 Mg Tablet PO 150 mg DAILY DIONISIO Administration Amiloride HCl 5 mg
[2022-06-09 08:00] VITALS: BP 125/66; PULSE 101; RESP 14; TEMP 36.1; O2SAT 98
--- NOTE | 2022-06-09 08:09 | P.DS_ITS ---
DS: Admitting Diagnosis Discharge Date 06/09/2022 Admitting Diagnosis Right knee osteoarthritis, acute blood loss anemia, orthostatic hypotension DS: Discharge Diagnosis Discharge Diagnosis (1) Status post total right knee replacement: Code(s): Z96.651 - Presence of right artificial knee joint Status: Acute Assessment and Plan: 71-year-old male now postop day 7 after right total knee. The wound can be open to air at discharge. He will take scheduled Tylenol every 8 hours and supp lement with tramadol p.r.n. for pain relief. Xarelto for 2 weeks for DVT prophylaxis. He has a follow-up appointment scheduled in our office next week for wound check. (2) Weight loss: Code(s): R63.4 - Abnormal weight loss Status: Acute Assessment and Plan: * 50 lb weight loss in the last 2 months * He has been attempting to lose some weight due to the upcoming knee surgery. * Plan on following with Hematology as outpatient. (3) Orthostatic hypotension: Code(s): I95.1 - Orthostatic hypotension Status: Acute Assessment and Plan: * Resolved with stabilizing of H&H. (4) Acute blood loss anemia: Code(s): D62 - Acute posthemorrhagic anemia Status: Acute Assessment and Plan: Post surgery patient's hemoglobin was 10. Patient had positive orthostatics postoperatively and the days following his surgery hemoglobin dropped dramatically. * Patient's hemoglobin 7.1 and he is symptomatic with hypotension and tachycardia as well as dizziness. * Patient received 1 unit of PRBCs on 06/05/2022 * Anemia labs revealed iron less than 10, TIBC 203, % saturation less than 5, transferrin 101 and ferritin 471 * Patient given 200 mg iron transfusion 06/06 * B12 and folate normal; LDH 144; absolute retic 0.6 * Hematology and GI have been consulted and appreciate recommendations * Plans for bone marrow aspiration after iron deficiency is resolved * / Patient's H&H is now trending upwards. Completed iron transfusions. * / patient's H&H is non 9.1 Per GI: * probably multifactorial after knee surgery * FOBT negative * egd and colonoscopy in 4-6 weeks as outpatient, my office will set up (5) Hypertension: Code(s): I10 - Essential (primary) hypertension Status: Acute Assessment and Plan: Patient with +orthostatic hypotension noted when getting up with therapy today. * SBP dropped to 80-90s and patient is tachycardic HR 110-120s. Hold antihypertensives for now. * Given 500 cc NS bolus and repeated orthostatics, that were still noted to be positive. * Start maintenance fluids NS@100 mL/hour. Check orthostatic vitals Qshift until stable. * Consider SHIV hose when appropriate per ortho 06/04/22 * Orthostatics positive still. With a drop from 108 to 84? to 72 SBP from supine to sitting to standing. * Hold narcotics for now. * Have discussed this case with Dr. Arrington. * Discuss Shiv hose with orthopedist and he does not believe they will fit over patient's surgical leg. 06/05/22 * Orthostatics still positive.? Patient's hemoglobin 7.1.? * Patient with tachycardia and hypotension.? Patient would benefit from transfusion. 06/05/2022 * patient received 1 unit of PRBCs. 06/06/22 * Patient's orthostatics negative today. Although patient still has low blood pressure 06/07/22 * Patient remains hypotensive. 06/08/22 * Patient is stable and orthostatics are negative. Patient has maintained a normal blood pressure and can be discharged to rehab. (6) Benign prostatic hyperplasia: Code(s): N40.0 - Benign prostatic hyperplasia without lower urina
--- NOTE | 2022-06-09 08:09 | PM.DS ---
DS: Admitting Diagnosis Discharge Date 06/09/2022 Admitting Diagnosis Right knee osteoarthritis, acute blood loss anemia, orthostatic hypotension DS: Discharge Diagnosis Discharge Diagnosis (1) Status post total right knee replacement: Code(s): Z96.651 - Presence of right artificial knee joint Status: Acute Assessment and Plan: 71-year-old male now postop day 7 after right total knee. The wound can be open to air at discharge. He will take scheduled Tylenol every 8 hours and supplement with tramadol p.r.n. for pain relief. Xarelto for 2 weeks for DVT prophylaxis. He has a follow-up appointment scheduled in our office next week for wound check. (2) Weight loss: Code(s): R63.4 - Abnormal weight loss Status: Acute Assessment and Plan: 50 lb weight loss in the last 2 months He has been attempting to lose some weight due to the upcoming knee surgery. Plan on following with Hematology as outpatient. (3) Orthostatic hypotension: Code(s): I95.1 - Orthostatic hypotension Status: Acute Assessment and Plan: Resolved with stabilizing of H&H. (4) Acute blood loss anemia: Code(s): D62 - Acute posthemorrhagic anemia Status: Acute Assessment and Plan: Post surgery patient's hemoglobin was 10. Patient had positive orthostatics postoperatively and the days following his surgery hemoglobin dropped dramatically. Patient's hemoglobin 7.1 and he is symptomatic with hypotension and tachycardia as well as dizziness. Patient received 1 unit of PRBCs on 06/05/2022 Anemia labs revealed iron less than 10, TIBC 203, % saturation less than 5, transferrin 101 and ferritin 471 Patient given 200 mg iron transfusion 06/06 B12 and folate normal; LDH 144; absolute retic 0.6 Hematology and GI have been consulted and appreciate recommendations Plans for bone marrow aspiration after iron deficiency is resolved 06/08 Patient's H&H is now trending upwards. Completed iron transfusions. 06/09 patient's H&H is non 9.1 Per GI: probably multifactorial after knee surgery FOBT negative egd and colonoscopy in 4-6 weeks as outpatient, my office will set up (5) Hypertension: Code(s): I10 - Essential (primary) hypertension Status: Acute Assessment and Plan: Patient with +orthostatic hypotension noted when getting up with therapy today. SBP dropped to 80-90s and patient is tachycardic HR 110-120s. Hold antihypertensives for now. Given 500 cc NS bolus and repeated orthostatics, that were still noted to be positive. Start maintenance fluids NS@100 mL/hour. Check orthostatic vitals Qshift until stable. Consider SHIV hose when appropriate per ortho 06/04/22 Orthostatics positive still. With a drop from 108 to 84? to 72 SBP from supine to sitting to standing. Hold narcotics for now. Have discussed this case with Dr. Arrington. Discuss Shiv hose with orthopedist and he does not believe they will fit over patient's surgical leg. 06/05/22 Orthostatics still positive.? Patient's hemoglobin 7.1.? Patient with tachycardia and hypotension.? Patient would benefit from transfusion. 06/05/2022 patient received 1 unit of PRBCs. 06/06/22 Patient's orthostatics negative today. Although patient still has low blood pressure 06/07/22 Patient remains hypotensive. 06/08/22 Patient is stable and orthostatics are negative. Patient has maintained a normal blood pressure and can be discharged to rehab. (6) Benign prostatic hyperplasia: Code(s): N40.0 - Benign prostatic hyperplasia without lower urinary tract symptoms Status: Chronic Assessment and Plan: With acute retention postop. Straight cathed x1 with -600 mL. Bladder scan Q6 and PRN. straight cath if >400 mL. Continue alfuzosin when blood pressure is improved, will change it to HS dosing to attempt to prevent orthostatic hypotension and next dose scheduled 06/04 at HS. Patient with continued positive orthostatics. Alfuzosin held du
[2022-06-09 08:48] VITALS: BP 84/69; PULSE 92; RESP 17; TEMP 36.7; O2SAT 97
[2022-06-09 08:49] VITALS: BP 98/77; PULSE 94
[2022-06-09 08:50] VITALS: BP 92/66; PULSE 95
[2022-06-09] MEDS: allopurinoL 150 MG TABLET PO (09:19)
[2022-06-09] MEDS: ASCORBIC ACID 500 MG TABLET 1000 MG PO (09:19)
[2022-06-09] MEDS: VITAMIN E 400 UNIT CAPSULE PO (09:19)
[2022-06-09] MEDS: CHOLECALCIFEROL 1,000 UNITS TABLET 1000 UNITS PO (09:19)
[2022-06-09] MEDS: MONTELUKAST SODIUM 10 MG TABLET PO (09:19)
[2022-06-09] MEDS: SENNA/DOCUSATE SODIUM TABLET 2 TAB PO (09:19)
[2022-06-09] MEDS: CYANOCOBALAMIN 1,000 MCG TABLET 1000 MCG PO (09:19)
[2022-06-09] MEDS: polyethylene glycoL 3350 17 GM POWD.PACK PO (09:20)
[2022-06-09] MEDS: FERROUS SULFATE 324 MG TABLET PO (09:20)
[2022-06-09] MEDS: MEMANTINE 5 MG TABLET PO (09:20)
[2022-06-09] MEDS: PANTOPRAZOLE 40 MG TABLET PO (09:20)
[2022-06-09] MEDS: ASPIRIN 81 MG CHEWABLE TABLET PO (09:20)
[2022-06-11 11:31] LABS: Methylmalonic Acid 166 nmol/L (87-318)
[2022-06-12 04:29] LABS: Haptoglobin 404 mg/dL (43-212)
[2022-06-13 22:37] LABS: Soluble Transferrin Receptor 0.97 mg/L (0.76-1.76)
== END 2022-06-09 11:05 | DRG 983 ==
LOC: ANHSURGERY 14:39 → ANH3MEDSUR 14:39
PROVIDERS: Internal Medicine Critical Care Medicine; Internal Medicine Hematology & Oncology; Nurse Practitioner Family; Admitting Provider Orthopaedic Surgery; Visit Provider Nurse Practitioner
PROC: 0SRC0J9 Replacement of Right Knee Joint with Synthetic Substitute, Cemented, Open Approach (ICD-10-PCS; CPT 27447; principal; 2022-06-02 07:30)
DX: D62 Acute posthemorrhagic anemia (principal); I95.1 Orthostatic hypotension; Z96.651 Presence of right artificial knee joint; M17.0 Bilateral primary osteoarthritis of knee; I10 Essential (primary) hypertension; N40.0 Benign prostatic hyperplasia without lower urinary tract symptoms; K21.9 Gastro-esophageal reflux disease without esophagitis; Z86.718 Personal history of other venous thrombosis and embolism; Z79.01 Long term (current) use of anticoagulants; Z87.891 Personal history of nicotine dependence; Z79.899 Other long term (current) drug therapy
CPT/HCPCS: 36415; 36430; 70450; 73560; 75635; 80048; 80053; 80076; 82140; 82274; 82533; 82607; 82728; 82746; 83010; 83540; 83550; 83615; 83735; 83921; 84238; 84443; 84466; 85014; 85018; 85025; 85027; 85046; 85610; 85730; 86850; 86880; 86900; 86901; 86923; 97110; 97116; 97161; 97165; 97530; 97535; A9270; C1713; C1776; J0131; J0171; J0690; J1741; J1756; J2250; J2270; J2405; J2704; J2795; J3010; J7030; J7040; J7050; J7120; P9016; Q9967

== ENCOUNTER 2022-08-20 14:00 | Outpatient (RCR) | payer MEDICARE, SELFPAY ==
--- NOTE | 2022-06-09 08:39 | PCPTNOTE ---
Patient has an initial evaluation scheduled for today, but is still in hospital and planning on going to [facility] after this. Orthopedics is aware and will send a new script when discharged from rehab.
--- NOTE | 2022-06-20 13:41 | PTOPEVAL1 ---
Assessment and note entered by Liliana Johansen, PT Evaluation Information Assessment Status Evaluation Diagnosis R TKR Onset 06-02-22 Subjective Information after surgery, went to in pt rehab; doing exercises at home: ankle pump, SLR, heel slides; Reported Pain Level Pain Score Self Report Additional Pain Score Comments pain range in past few days 3-09/15, R knee over anterior patella; decrease pain with ice, tramadol 1x/day use for sleeping; increase pain with walking and bending knee; Assessment PT Clinical Summary Wes is s/p R TKR. He had in pt rehab and has been home for 2 days. Prior to surgery, he used a cane PRN and was active. He fractured his L shoulder --non surgical, about 3 wks before knee surgery and has some pain in shoulder. He is hesitant to move and stretch is knee--several times during eval stated that is going to hurt. With the evaluation, he has decreased R knee ROM and strength,decreased transfer and gait skills, with TUG time of 28 seconds and 5 reps sit/stnad of 42 seconds; at 150' of walking, he is fatigued. Skilled PT services are indicated for modalities PRN for pain control, therapeutic exercises, gait and balance retraining, with education for HEP and gait progression to lesser device. Plan of Care Interventions Electrical Stimulation,Gait Training,Hot Pack/Cold Pack,Manual Therapy,Neuro Re-education,Patient/ Caregiver Education,Therapeutic Activities, Therapeutic Exercise,Other Other Interventions taping PT Services Indicated Yes Treatment Frequency and 2x/wk for 5 weeks Duration These treatments will address the objective and functional deficits as defined above. The patient will be advanced safely and appropriately in order for the patient to progress towards his/her prior level of function. Additional exercises will be introduced and as well as a comprehensive home exercise program upon discharge, if needed, ?to ensure carryover of functional gains achieved in the clinic. This treatment plan has been reviewed and agreement upon by the patient.
--- NOTE | 2022-07-25 14:27 | PTOPPROG ---
Assessment and note entered by Liliana Johansen, PT Evaluation Information Assessment Status Progress Diagnosis R TKR Onset 06-02-22 Subjective Information Wes reports: feel like his knee is getting better in the house sometimes walks without anything, but when first wake up, knee is really stiff and use the wheeled walker; use cane most of the time; have been doing the leg exercises; does not feel confident yet with his balance and walking; has not gone into the basement yet--18 steps and he is fearful of them; pain range of 0-7/10;R anterior knee pain; increase with walking and doing too much; decrease pain with ice, rest and pain meds; still has some pain in his L shoulder and problems lying on his L side; Assessment PT Clinical Summary Wes has received 10 PT sessions, s/p R TKR. He has improved in all areas since the initial evaluation: pain has decreased; is walking with a cane or no device; TUG time, 2 minute walking test distance of 300' with cane; 5 reps sit/stand time; able to transfer sit/stand from 18 seat with 1 UE use; strength of R hip and knee; Active ROM of R knee in sitting is (-5') to 120' The goals were partially achieved. Continue PT to further increase strength of R hip/ knee, knee extension ROM and balance skills. Plan of Care Interventions Hot Pack/Cold Pack,Neuro Re-education,Patient/ Caregiver Education,Therapeutic Activities, Therapeutic Exercise Other Interventions taping PT Services Indicated Yes Treatment Frequency and 2x/wk for 3 weeks Duration These treatments will address the objective and functional deficits as defined above. The patient will be advanced safely and appropriately in order for the patient to progress towards his/her prior level of function. Additional exercises will be introduced and as well as a comprehensive home exercise program upon discharge, if needed, ?to ensure carryover of functional gains achieved in the clinic. This treatment plan has been reviewed and agreement upon by the patient.
--- NOTE | 2022-08-21 11:45 | PTOPDC ---
Assessment and note entered by Liliana Johansen, PT Evaluation Information Assessment Status Discharge Diagnosis R TKR Onset 06-02-22 Subjective Information Wes reports: using the walker at night to go to the bathroom, around the house cane or no device and when go out- use cane; has returned to driving, cooking and laundry tasks; has gone down to his basement only 1 x and did OK- single step; with walking feel 99% secure, but feel like 1% of the time like his knee is not stable; had one fall, going out of the bathroom, with socks on, slipped and fell backwards onto his butt; is doing the knee exercises. Reported Pain Level Pain Score Self Report R knee Additional Pain Score Comments in the past week, pain range of 0-9/10; pain is worse in the morning when first wake up; pain decrease with sitting, rest, ice; Assessment PT Clinical Summary Wes has received a total of 15 PT sessions. Compared to the last reevaluation: pain rating at least is the same at 0/10 and worst has increased from 7 to 9/10; strength of hip/knee have increased with the side lying hip abduction motion and single leg standing is 2 seconds less; 2 minute walking test distance has increased by 40' and performed without assistive device; has returned to his usual home tasks and has been up/ down his basement stairs. Active ROM of knee is about the same: (-5') to 115'. The goals were partially achieved. Discontinue PT services. He is to continue with his home exercises and stretching knee extension ROM. Plan of Care PT Services Indicated No
== END 2022-08-21 14:18 | disposition home or self-care (01) ==
LOC: ANHPT 14:00
PROVIDERS: Visit Provider Orthopaedic Surgery
DX: Z47.1 Aftercare following joint replacement surgery (principal); Z96.651 Presence of right artificial knee joint
CPT/HCPCS: 97014; 97110; 97116; 97140; 97161; 97530; G0283

== ENCOUNTER 2022-11-17 14:51 | Outpatient (CLI) | payer MEDICARE, SELFPAY ==
[2022-11-17 15:17] LABS: Basophils Percent Auto 0.5 % (0.2-1.2); Eosinophils Absolute Auto 0.1 K/mm3 (0-0.3); Eosinophils Percent Auto 1.5 % (0-4.4); Hematocrit 40.9 % (42.0-52.0); Hemoglobin 13.8 g/dL (14.0-18.0); Immature Granulocyte Absolute 0.01 K/mm3 (0.00-0.031); Immature Granulocyte Percent A 0.2 % (0-0.5); Lymphocytes Absolute Auto 1.44 K/mm3 (0.9-3.2); Lymphocytes Percent Auto 35.4 % (18.3-44.2); Mean Corpuscular HGB Conc 33.7 g/dl (32-36); Mean Corpuscular Hemoglobin 33.8 pg (26-34); Mean Corpuscular Volume 100.2 fl (80-100); Mean Platelet Volume 8.8 fl (7.4-10.4); Monocytes Absolute Auto 0.3 K/mm3 (0.1-0.6); Monocytes Percent Auto 7.6 % (2.6-8.5); Neutrophils Absolute Auto 2.2 K/mm3 (1.3-6.7); Neutrophils Percent Auto 54.8 % (45.5-73.1); Platelet Count Result 195 k/mm3 (150-375); Red Blood Count 4.08 M/mm3 (4.6-6.20); Red Cell Distribution Width 12.3 % (11.5-14.5); White Blood Count 4.1 K/mm3 (4.5-10.0)
[2022-11-17 16:49] LABS: Alanine Aminotransferase 20 U/L (6-50); Albumin Level 4.8 g/dL (3.5-5.1); Alkaline Phosphatase 72 U/L (38-126); Anion Gap 11 mmol/L (8-16); Aspartate Amino Transferase 25 U/L (17-59); Bilirubin,Total 0.5 mg/dL (0.2-1.3); Blood Urea Nitrogen 23 mg/dL (9-20); Calcium 9.6 mg/dL (8.4-10.2); Carbon Dioxide 25 mmol/L (22-30); Chloride 102 mmol/L (98-107); Estimated Glomerular Filt Rate > 60; Glucose 92 mg/dL (65-110); Potassium 3.9 mmol/L (3.4-5.0); Sodium 138 mmol/L (137-145)
[2022-11-17 16:50] LABS: Iron 72 ug/dL (49-181)
[2022-11-17 17:02] LABS: Percent Iron Saturation 21 % (20-50)
[2022-11-17 17:29] LABS: HIV 1/2 Ab P24 Ag Result Negative (Negative)
[2022-11-17 17:55] LABS: Folic Acid 16.1 ng/mL (2.76->20)
[2022-11-20 15:42] LABS: Methylmalonic Acid 143 nmol/L (87-318)
== END 2022-11-17 14:52 | disposition home or self-care (01) ==
LOC: ANHLAB 14:53
PROVIDERS: PCP Family Medicine; Visit Provider Internal Medicine Hematology & Oncology
DX: D72.819 Decreased white blood cell count, unspecified (principal); D64.9 Anemia, unspecified
CPT/HCPCS: 36415; 80053; 82607; 82728; 82746; 83540; 83550; 83921; 85025; 86038; 86703; G0432

== ENCOUNTER 2022-11-27 07:45 | Outpatient (CLI) | payer MEDICARE, SELFPAY ==
--- NOTE | ~2022-11-27 | US_ITS ---
Abdominal Sonogram: Real-time sonographic imaging of the abdomen was performed. Clinical History: Leukopenia Findings: The liver appears normal with no evidence of mass lesion or bile duct dilatation. Main por monica vein demonstrates normal direction of flow. The spleen is normal in size without evidence of foca l lesion. The gallbladder is well distended, and contains echogenic gallstones. No gallbladder wall thickening. The common bile duct measures 5 mm. There is mild diffuse ectasia of the aorta, but no fr ank aneurysm seen. Visualized pancreas and IVC are unremarkable. The right kidney measures 10.2 cm i n length and the left kidney measures 10.9 cm. There is no hydronephrosis or renal calculus. Impression: Cholelithiasis. Reviewed, dictated and finalized at location . Impression: Cholelithiasis.
== END 2022-11-27 07:46 | disposition home or self-care (01) ==
PROVIDERS: PCP Family Medicine; Visit Provider Internal Medicine Hematology & Oncology
DX: D72.819 Decreased white blood cell count, unspecified (principal); K80.20 Calculus of gallbladder without cholecystitis without obstruction
CPT/HCPCS: 76700

== ENCOUNTER 2022-12-14 06:58 | Emergency (ER) | payer MEDICARE, SELFPAY ==
[2022-12-14 07:12] VITALS: BP 129/76; PULSE 109; RESP 20; TEMP 36.7; O2SAT 99
--- NOTE | 2022-12-14 07:15 | ED.EYEPROB ---
HPI - Eye Problem General Chief complaint: Eye Problems Stated complaint: lost contact in eye Time Seen by Provider: 12/14/22 07:15 Source: patient Mode of arrival: ambulatory Limitations: no limitations History of Present Illness HPI Narrative: Possible right eye contact lens on the right upper eyelid since last night Related Data Allergies Allergy/AdvReac Type Severity Reaction Status Date / Time naproxen Allergy Unknown SWELLING,FL Verified 12/14/22 07:41 USHING Review of Systems Review of Systems: All systems reviewed & are unremarkable except as noted in HPI and below PMFSH Past Medical History Medical History Acute blood loss anemia Benign prostatic hyperplasia Deep vein thrombosis of left lower extremity (2016) Degenerative arthritis of knee, bilateral Gastroesophageal reflux disease Gout Hyperlipidemia Hypertension Kidney stones Obstructive sleep apnea Mild sleep apnea. No longer using CPAP after weight loss. 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 Code status: Full code. Smoking packs per day: 0.5 Smoking cigarettes per day: 10.0 Years smoked: 55 Smoking pack-years: 27.50 Smoking status: Former smoker Tobacco type: cigarettes Second hand tobacco smoke exposure: No Smoking end date: 04/20/22 Alcohol intake: former Substance use: never Substance use type: does not use Lack of Transportation: No Lack of Food: Never True Current Housing: I Have Housing Concerned About Future Housing: No Difficulty Paying Gas/Electric Bills: No Difficulty Paying for Meds: No Currently Unemployed: No Education: Master's Degree or Higher Difficulty w/ Childcare or Family Care: No Living arrangements: with family Additional living arrangements comments: Lives with of 50 years in [place]. Additional occupation/education comments: Retired. Spiritual care concerns: No Exam Narrative: General appearance: Well-developed, well-nourished Skin: Normal color Head: Normocephalic, nontraumatic Eyes: Clear conjunctiva eye exam showed no injection, no redness, no discharge, no contact lenses, negative fluorescein test ENT: Oropharynx normal, ears normal, nose normal Neurologic: Alert and oriented ?3, MEDIC TECHNICIAN is normal as tested, no gross motor deficit Course Reevaluation(s) Reevaluation #1: No new changes compared to on arrival Date: 12/14/22 Time: 07:55 Vital Signs Vital signs: Vital Signs Temperature 36.7 C 12/14/22 07:12 Pulse Rate 109 H 12/14/22 07:12 Respiratory Rate 20 12/14/22 07:12 Blood Pressure 129/76 12/14/22 07:12 Pulse Oximetry 99 12/14/22 07:12 Oxygen Delivery Room Air 12/14/22 07:12 Temperature 36.7 C 12/14/22 07:12 Pulse Rate 109 H 12/14/22 07:12 Respiratory Rate 20 12/14/22 07:12 Blood Pressure 129/76 12/14/22 07:12 Pulse Oximetry 99 12/14/22 07:12 Oxygen Delivery Room Air 12/14/22 07:12
== END 2022-12-14 08:00 | disposition home or self-care (01) ==
LOC: ANHED 08:08
PROVIDERS: Emergency Provider Emergency Medicine; PCP Family Medicine
DX: Z03.823 Encounter for observation for suspected inserted (injected) foreign body ruled out (principal); N40.0 Benign prostatic hyperplasia without lower urinary tract symptoms; Z86.718 Personal history of other venous thrombosis and embolism; M17.0 Bilateral primary osteoarthritis of knee; K21.9 Gastro-esophageal reflux disease without esophagitis; M10.9 Gout, unspecified; E78.5 Hyperlipidemia, unspecified; I10 Essential (primary) hypertension; Z87.442 Personal history of urinary calculi; G47.33 Obstructive sleep apnea (adult) (pediatric); Z96.651 Presence of right artificial knee joint; Z87.891 Personal history of nicotine dependence
CPT/HCPCS: 99283; A9270

== ENCOUNTER 2023-06-10 17:00 | Outpatient (NON) | payer MEDICARE, SELFPAY ==
[2023-06-10 19:58] LABS: Appearance Synovial Fluid Hazy (Clear); Color Synovial Fluid Yellow (Colorless); Nucleated Cell Synovial Fluid 342 /uL (0-200); Source Synovial Fluid Synovial fluid
[2023-06-10 19:59] LABS: Lymphocytes Synovial Fluid 24 %; Macrophages Synovial Fluid 3 %; Monocytes Synovial Fluid 44 %; Neutrophils Synovial Fluid 21 % (0-25); Other Cells Synovial Fluid 8 %
[2023-06-10 20:04] LABS: RBC Synovial Fluid 3900 /uL (0-0)
[2023-06-10 20:06] LABS: Crystals Synovial Fluid None Seen (None Seen)
== END 2023-06-10 17:01 | disposition home or self-care (01) ==
PROVIDERS: PCP Family Medicine; Visit Provider Orthopaedic Surgery
DX: M25.462 Effusion, left knee (principal)
CPT/HCPCS: 89051; 89060

== ENCOUNTER 2023-07-29 09:30 | Emergency (ER) | payer MEDICARE, SELFPAY ==
[2023-07-29] VITALS (22 sets, daily range): BP systolic 120–137; BP diastolic 78–94; PULSE 84–118; RESP 12–27; TEMP 36.5; O2SAT 94–100
--- NOTE | ~2023-07-29 | CT_ITS ---
EXAMINATION: CT abdomen pelvis w con DATE: 07/29/2023 14:12 INDICATION: Right flank pain. Abdominal bruising. Fall one week ago. TECHNIQUE: Computed tomography (CT) of the abdomen and pelvis was performed with 100 mL Omnipaque 350 intravenous contrast. Automated exposure control and iterative reconstruction technique were employe d. The dose-length product was 711.93 mGy-cm. COMPARISON: CT 06/05/2022 FINDINGS: The visualized portions of the lung bases demonstrate mild atelectasis. Calcified right kingston g nodules are consistent with old granulomatous disease. No pleural effusion. The heart size is deshawn l. There are calcifications of the aortic valve and coronary arteries. No pericardial effusion. The l iver is normal. There are gallstones in the gallbladder, which is normal in size. Surgical clips in t he right upper quadrant are likely from cholecystectomy. The pancreas and adrenal glands are normal. There is a 2 mm and 1 mm stones in right kidney. Left kidney is normal. The bladder is distended. The re is diverticulosis of the colon without evidence of diverticulitis. There are no dilated loops of b owel. The appendix is normal. Aortic atherosclerosis is noted. There are no pathologically enlarged l ymph nodes. There is no free intraperitoneal fluid. There are old healed fractures of right superior and inferior pubic rami. There is an acute fracture of right 12th rib. There is an old healed fractur e of right 11th rib. There is mild chronic height loss of multiple vertebral bodies. There is moderat e lumbar spondylosis. IMPRESSION: 1. Acute fracture of right 12th rib. Reviewed, dictated and finalized at location A.
--- NOTE | 2023-07-29 09:36 | ECG_ITS ---
SEE SCANNED COPY FOR CONFIRMED REPORT MTDD
--- NOTE | 2023-07-29 12:01 | ED.BACK ---
HPI - Back Pain/Injury General Chief Complaint: Back Pain/Injury Stated Complaint: right side back pain Time Seen by Provider: 07/29/23 11:57 Source: patient Mode of arrival: ambulatory Limitations: no limitations History of Present Illness HPI Narrative: Patient presents with right back pain. Last week he got up to go to the bathroom and accidentally fell. He was doing ok for several days and then noticed some mild abdominal bruising. Yesterday he started having worsening of his pain. Pain worse with movement and cough. He hematuria or hematochezia. No paresthesias. LBM yesterday. No diarrhea though occasionally has some constipation. When he fell he struck his back on a counter top. At baseline he has difficulty sleeping and takes 10mg Valium QHS. Also on tamsulosin which he takes at night and is on nortryptiline. He used a walker to ambulate. He turns red when taking naproxen but has taken aspirin and ibuprofen without problem previously. Related Data Home Medications Medication Instructions Recorded Confirmed B6 1.7 mg-folic 400 mcg-B12 2.4 cap PO 03/19/23 06/10/23 qmr-hikbns-bgemcktkxrih oral capsule (Neuriva Plus [employer]) ascorbic acid (vitamin C) 1,000 mg 1 g PO DAILY 03/19/23 06/10/23 capsule aspirin 325 mg tablet 325 mg PO DAILY 03/19/23 06/10/23 cholecalciferol (vitamin D3) 25 25 mcg PO DAILY 03/19/23 06/10/23 mcg (1,000 unit) capsule mecobalamin (vitamin B12) 1,000 1,000 mcg PO DAILY 03/19/23 06/10/23 mcg lozenges vitamin E (dl, acetate) 180 mg 180 mg PO DAILY 03/19/23 06/10/23 (400 unit) capsule zinc gluconate 50 mg tablet 50 mg PO DAILY 03/19/23 06/10/23 B6 1.7 mg-folic 400 mcg-B12 2.4 1 cap PO 06/10/23 06/10/23 wao-iwohyp-yzhutwoqfihu oral capsule (Neuriva Plus [employer]) Allergies Allergy/AdvReac Type Severity Reaction Status Date / Time naproxen Allergy Unknown SWELLING,FL Verified 07/29/23 09:30 [facility] Past Medical History Medical History Acute blood loss anemia Benign prostatic hyperplasia Deep vein thrombosis of left lower extremity (2017) Degenerative arthritis of knee, bilateral Gastroesophageal reflux disease Gout Hyperlipidemia Hypertension Kidney stones Obstructive sleep apnea Mild sleep apnea. No longer using CPAP after weight loss. 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 Code status: Full code. Years smoked: 55 Smoking status: Former smoker Tobacco type: cigarettes Second hand tobacco smoke exposure: No Smoking end date: 04/20/22 Alcohol intake: former Substance use: never Substance use type: does not use Do You Feel Safe in your Home?: Yes Lack of Transportation: No Lack of Food: Never True Current Housing: I Have Housing Concerned About Future Housing: No Difficulty Paying Gas/Electric Bills: No Difficulty Paying for Meds: No Currently Unemployed: No Education: Bachelor's Degree Difficulty w/ Childcare or Family Care: No Living arrangements: with family Additional living arrangements comments: Lives with of 50 years in [place]. Occupation/Education: retired Additional occupation/education comments: Re
[2023-07-29] MEDS: ACETAMINOPHEN 325 MG TABLET 650 MG PO (12:57)
[2023-07-29 13:14] LABS: Basophils Percent Auto 0.5 % (0.2-1.2); Eosinophils Percent Auto 1.1 % (0-4.4); Hematocrit 42.3 % (42.0-52.0); Immature Granulocyte Absolute 0.01 K/mm3 (0.00-0.031); Immature Granulocyte Percent A 0.3 % (0-0.5); Lymphocytes Absolute Auto 0.84 K/mm3 (0.9-3.2); Lymphocytes Percent Auto 22.6 % (18.3-44.2); Mean Corpuscular HGB Conc 33.1 g/dl (32-36); Mean Corpuscular Hemoglobin 34.1 pg (26-34); Mean Corpuscular Volume 103.2 fl (80-100); Mean Platelet Volume 9.1 fl (7.4-10.4); Monocytes Absolute Auto 0.4 K/mm3 (0.1-0.6); Monocytes Percent Auto 9.7 % (2.6-8.5); Neutrophils Absolute Auto 2.4 K/mm3 (1.3-6.7); Neutrophils Percent Auto 65.8 % (45.5-73.1); Platelet Count Result 206 k/mm3 (150-375); Red Cell Distribution Width 12.6 % (11.5-14.5); White Blood Count 3.7 K/mm3 (4.5-10.0)
[2023-07-29 13:24] LABS: INR 1.1; Partial Thromboplastin Time 30.2 Seconds (22.3-36.8); Prothrombin Time 14.1 Seconds (11.1-14.7)
[2023-07-29 13:25] LABS: Appearance Urine Clear (Clear); Bilirubin Urine Negative (Negative); Blood Urine Negative (Negative); Color Urine Yellow (Yellow); Glucose Urine UA Negative (Negative); Ketones Urine Trace mg/dL (Negative); Leukocyte Esterase Ur Negative LEU/UL (Negative); Nitrate Urine Negative (Negative); Protein Urine Negative (Negative); Specific Grav Ur 1.017 (1.001-1.035)
[2023-07-29 13:30] LABS: Add Urine Microscopic? NO
[2023-07-29 13:30] LABS: Alanine Aminotransferase 13 U/L (6-50); Albumin Level 4.7 g/dL (3.5-5.1); Alkaline Phosphatase 92 U/L (38-126); Anion Gap 9 mmol/L (4-12); Aspartate Amino Transferase 27 U/L (17-59); Bilirubin,Total 0.7 mg/dL (0.2-1.3); Blood Urea Nitrogen 21 mg/dL (9-20); Calcium 9.3 mg/dL (8.4-10.2); Carbon Dioxide 25 mmol/L (22-30); Chloride 105 mmol/L (98-107); Estimated CRCL calculation 68 ml/min; Estimated Glomerular Filt Rate > 60; Glucose 97 mg/dL (65-110); Sodium 139 mmol/L (137-145)
[2023-07-29] MEDS: HYDROcodone/acetaminophen (*CRX) 5-325 MG TABLET 1 TAB PO (14:31)
== END 2023-07-29 15:21 | disposition home or self-care (01) ==
PROVIDERS: Emergency Provider Student in an Organized Health Care Education/Training Program; PCP Family Medicine
DX: S22.31XA Fracture of one rib, right side, initial encounter for closed fracture (principal); S39.92XA Unspecified injury of lower back, initial encounter; D72.819 Decreased white blood cell count, unspecified; I10 Essential (primary) hypertension; E78.5 Hyperlipidemia, unspecified; N40.0 Benign prostatic hyperplasia without lower urinary tract symptoms; G47.33 Obstructive sleep apnea (adult) (pediatric); M17.0 Bilateral primary osteoarthritis of knee; M10.9 Gout, unspecified; K21.9 Gastro-esophageal reflux disease without esophagitis; Z96.651 Presence of right artificial knee joint; Z87.442 Personal history of urinary calculi; Z87.891 Personal history of nicotine dependence; Z86.718 Personal history of other venous thrombosis and embolism; Z79.82 Long term (current) use of aspirin; R00.0 Tachycardia, unspecified; W01.198A Fall on same level from slipping, tripping and stumbling with subsequent striking against other object, initial encounter
CPT/HCPCS: 36415; 74177; 80053; 81003; 85025; 85610; 85730; 93005; 99284; A9270; Q9967

== ENCOUNTER 2023-09-25 07:22 | Outpatient (CLI) | payer MEDICARE, SELFPAY ==
--- NOTE | 2023-09-25 09:38 | ECG_ITS ---
Test Date: 2023-09-25 09:48:13 Measurements Intervals [place] Rate: 115 P: -48 AL: 174 QRS: -18 QRSD: 93 T: 44 QT: 311 QTc: 430 Interpretive Statements SINUS TACHYCARDIA WITH OCCASIONAL SUPRAVENTRICULAR PREMATURE COMPLEXES INCOMPLETE RIGHT BUNDLE BRANCH BLOCK DELAYED PRECORDIAL R/S TRANSITION CONSIDER INFERIOR INFARCT, AGE INDETERMINATE BASELINE ARTIFACT- I, II, AVR ABNORMAL ECG No previous ECG available for comparison Electronically Signed On 09-25-2023 11:17:38 CDT by Lobito Gay D.O.
[2023-09-25 11:10] LABS: Hemoglobin A1C 5.4 % (<5.7)
[2023-09-25 11:37] LABS: Urine Cotinine NEGATIVE
== END 2023-09-25 07:23 | disposition home or self-care (01) ==
LOC: ANHSURGERY 07:26
PROVIDERS: PCP Family Medicine; Visit Provider Orthopaedic Surgery
DX: M17.12 Unilateral primary osteoarthritis, left knee (principal); I10 Essential (primary) hypertension; Z01.818 Encounter for other preprocedural examination; I45.10 Unspecified right bundle-branch block
CPT/HCPCS: 80307; 83036; 86850; 86900; 86901; 87081; 93005

== ENCOUNTER 2023-09-28 09:33 | Emergency (ER) | payer MEDICARE, SELFPAY ==
--- NOTE | ~2023-09-28 | CT_ITS ---
EXAMINATION: CT abdomen pelvis w con DATE: 09/28/2023 10:40 INDICATION: Generalized abdominal pain. Constipation. TECHNIQUE: Computed tomography (CT) of the abdomen and pelvis was performed with 100 cc Omnipaque 350 intravenous contrast. The dose-length product was 890.94 mGy-cm. Automated exposure control and iter ative reconstruction technique were employed. COMPARISON: CT dated 07/29/2023. FINDINGS: Small-moderate bilateral pleural effusions with underlying compressive atelectasis. Heart s ize normal. There are calcified granulomas of the spleen. There is moderate ascites. There are calcif ications along the inguinal canals bilaterally, nonspecific. There are gallstones. The pancreas, adre nal glands and left kidney are unremarkable. The there are nonobstructing right renal stones. There i s peritoneal stranding and nodularity anteriorly. There is loculated fluid anteriorly. There is ather osclerosis of the aorta without aneurysm. Multiple healed right rib fractures. Healed right pelvic fr actures. IMPRESSION: 1. Peritoneal stranding and nodularity with interval development of ascites. Coarse calcifications ar e noted along the regions of the inguinal canals. Cannot exclude peritoneal carcinomatosis. Correlate for history of malignancy. 2: Nonobstructing right nephrolithiasis. 3: Gallstones. 4: Moderate ascites. Small-moderate pleural effusions. Reviewed, dictated and finalized at location B. IMPRESSION: 1. Peritoneal stranding and nodularity with interval development of ascites. Co arse calcifications are noted along the regions of the inguinal canals. Cannot exclude peritoneal carcinomatosis. Correlate for history of malignancy. 2: Nonobstructing right nephrolithiasis. 3: Gallstones. 4: Moderate ascites. Small-moderate pleural effusions.
[2023-09-28 09:52] VITALS: BP 122/92; PULSE 112; RESP 16; TEMP 36.6; O2SAT 95
[2023-09-28 10:14] LABS: Basophils Percent Auto 0.5 % (0.2-1.2); Eosinophils Percent Auto 0.3 % (0-4.4); Hematocrit 44.8 % (42.0-52.0); Hemoglobin 15.2 g/dL (14.0-18.0); Immature Granulocyte Absolute 0.01 K/mm3 (0.00-0.031); Immature Granulocyte Percent A 0.2 % (0-0.5); Lymphocytes Absolute Auto 0.85 K/mm3 (0.9-3.2); Lymphocytes Percent Auto 13.8 % (18.3-44.2); Mean Corpuscular HGB Conc 33.9 g/dl (32-36); Mean Corpuscular Hemoglobin 33.9 pg (26-34); Mean Corpuscular Volume 99.8 fl (80-100); Monocytes Absolute Auto 0.4 K/mm3 (0.1-0.6); Monocytes Percent Auto 5.9 % (2.6-8.5); Neutrophils Absolute Auto 4.9 K/mm3 (1.3-6.7); Neutrophils Percent Auto 79.3 % (45.5-73.1); Platelet Count Result 310 k/mm3 (150-375); Red Blood Count 4.49 M/mm3 (4.6-6.20); Red Cell Distribution Width 12.2 % (11.5-14.5); White Blood Count 6.2 K/mm3 (4.5-10.0)
--- NOTE | 2023-09-28 10:19 | ED.ABDPAIN ---
HPI - Abdominal Pain General Chief Complaint: Abdominal Pain Stated Complaint: constipation, ABD pain Time Seen by Provider: 09/28/23 09:35 Source: patient Mode of arrival: ambulatory Limitations: no limitations History of Present Illness HPI narrative: This is a 73-year-old male with PMH of HTN, HLD, BPH who presents to the ED for chief complaint of abdominal pain, distension and constipation for 5-7 days. Patient reports he had 1 bowel movement on Thursday when he tried a Dulcolax stool softener and ended up having 1 small loose bowel movement. Endorses bloating which is new to him. He has not had issues with constipation in the past. Past surgical history of multiple abdominal hernia repairs. Related Data Home Medications Medication Instructions Recorded Confirmed B6 1.7 mg-folic 400 mcg-B12 2.4 1 cap PO DAILY 03/19/23 09/25/23 vry-urjzlo-hqmsgmdgywkv oral capsule (Neuriva Plus [employer]) aspirin 325 mg tablet 650 mg PO DAILY 03/19/23 09/25/23 cholecalciferol (vitamin D3) 25 100 mcg PO DAILY 03/19/23 09/25/23 mcg (1,000 unit) capsule mecobalamin (vitamin B12) 1,000 2,000 mcg PO DAILY 03/19/23 09/25/23 mcg lozenges vitamin E (dl, acetate) 180 mg 180 mg PO DAILY 03/19/23 09/25/23 (400 unit) capsule zinc gluconate 50 mg tablet 50 mg PO DAILY 03/19/23 09/25/23 Selenex 1 cap PO DAILY 09/25/23 09/25/23 acetaminophen 650 mg 650 mg PO Q12H 09/25/23 09/25/23 tablet,extended release ascorbic acid (vitamin C) 1,000 mg 1,000 mg PO DAILY 09/25/23 09/25/23 tablet (Vitamin C) coffee extract 100 mg-phosphatidyl 1 cap PO DAILY 09/25/23 09/25/23 serine 100 mg capsule (Neuriva Original) docusate sodium 100 mg capsule 100 mg PO DAILY 09/25/23 09/25/23 (Stool Softener) fiber 4 cap PO DAILY 09/25/23 09/25/23 omeprazole 20 mg capsule,delayed 20 mg PO DAILY PRN REFLUX 09/25/23 09/25/23 release Allergies Allergy/AdvReac Type Severity Reaction Status Date / Time naproxen Allergy Unknown SWELLING,FL Verified 09/28/23 09:52 USHING Review of Systems Review of Systems: All systems as dictated in [facility] Past Medical History Medical History Acute blood loss anemia Benign prostatic hyperplasia Deep vein thrombosis of left lower extremity (2016) Degenerative arthritis of knee, bilateral Gastroesophageal reflux disease Gout Hyperlipidemia Hypertension Kidney stones Obstructive sleep apnea Mild sleep apnea. No longer using CPAP after weight loss. 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 Code status: Full code. Smoking packs per day: 1 Smoking cigarettes per day: 20.0 Years smoked: 54 Smoking pack-years: 54.00 Smoking status: Former smoker Tobacco type: cigarettes Second hand tobacco smoke exposure: No Smoking end date: 04/20/22 Alcohol intake: former Substance use: never Substance use type: does not use Do You Feel Safe in your Home?: Yes Lack of Transportation: No Lack of Food: Never True Current Housing: I Have Housing Concerned About Future Housing: No Difficulty Paying Gas/Electric Bills: No Difficulty Paying for Meds: No Currently Unemployed: No Education: [place]
[2023-09-28 10:23] LABS: INR 1.2; Lactic Acid Reflex 2.2 mmol/L (0.7-2.0); Prothrombin Time 15.3 Seconds (11.1-14.7)
[2023-09-28 10:24] LABS: Alanine Aminotransferase 14 U/L (6-50); Albumin Level 4.4 g/dL (3.5-5.1); Alkaline Phosphatase 82 U/L (38-126); Anion Gap 16 mmol/L (4-12); Aspartate Amino Transferase 23 U/L (17-59); Bilirubin,Total 0.7 mg/dL (0.2-1.3); Blood Urea Nitrogen 14 mg/dL (9-20); Calcium 9.1 mg/dL (8.4-10.2); Carbon Dioxide 22 mmol/L (22-30); Chloride 100 mmol/L (98-107); Estimated CRCL calculation 64 ml/min; Estimated Glomerular Filt Rate > 60; Glucose 110 mg/dL (65-110); Lipase 60 U/L (23-300); Partial Thromboplastin Time 35.9 Seconds (22.3-36.8); Sodium 138 mmol/L (137-145)
[2023-09-28 10:43] VITALS: BP 124/63; PULSE 102; RESP 17; O2SAT 95
--- NOTE | 2023-09-28 11:01 | PC.NURSE ---
Pt states hallucinations are young girls are recruiting me to committees that are killing people Denies desire to act on hallucination or impression that it is real.Denies H/I or S/I
[2023-09-28] MEDS: MORPHINE SULFATE (*CRX) 4 MG/ML INJ IV PUSH (11:09)
[2023-09-28] MEDS: ONDANSETRON INJ 4 MG/2 ML VIAL IV PUSH (11:09)
[2023-09-28] MEDS: SODIUM CHLORIDE 0.9% IV 1,000 ML 999 ML IV CONT (11:09)
[2023-09-28 11:12] VITALS: BP 122/78; PULSE 102; RESP 15; TEMP 36.6; O2SAT 96
[2023-09-28 12:15] VITALS: BP 126/87; PULSE 100; RESP 16; TEMP 36.6; O2SAT 96
[2023-09-28 12:45] LABS: Appearance Urine Clear (Clear); Bacteria Urine None Seen /hpf; Bilirubin Urine Negative (Negative); Blood Urine 1+ (Negative); Color Urine Dark Yellow (Yellow); Glucose Urine UA Negative (Negative); Hyaline Casts Urine Present /lpf; Ketones Urine 1+ mg/dL (Negative); Leukocyte Esterase Ur Negative LEU/UL (Negative); Need Manual Microscopic Reviewed; Nitrate Urine Negative (Negative); Protein Urine Trace mg/dL (Negative); Specific Grav Ur 1.032 (1.001-1.035); Squamous Epithelial Cell Urine None Seen /hpf (Few); WBC Urine 0-5 /hpf (0-3); pH Urine 5.5 (5.0-9.0)
[2023-09-28 12:49] LABS: Add Urine Microscopic? YES
[2023-09-28 13:12] LABS: Reflex Lactic Acid Yes or No Add Lactic
[2023-09-28 14:00] VITALS: BP 124/83; PULSE 103; RESP 17; O2SAT 94
[2023-09-28 14:24] LABS: Lactic Acid 1.4 mmol/L (0.7-2.0)
[2023-09-28 15:30] VITALS: BP 125/87; PULSE 100; RESP 16; O2SAT 100
== END 2023-09-28 15:30 | disposition home or self-care (01) ==
PROVIDERS: Emergency Provider Physician Assistant; PCP Family Medicine
DX: R10.9 Unspecified abdominal pain (principal); R93.5 Abnormal findings on diagnostic imaging of other abdominal regions, including retroperitoneum; I10 Essential (primary) hypertension; E78.5 Hyperlipidemia, unspecified; N40.0 Benign prostatic hyperplasia without lower urinary tract symptoms; K21.9 Gastro-esophageal reflux disease without esophagitis; M17.0 Bilateral primary osteoarthritis of knee; M10.9 Gout, unspecified; G47.33 Obstructive sleep apnea (adult) (pediatric); Z96.651 Presence of right artificial knee joint; Z87.442 Personal history of urinary calculi; Z86.718 Personal history of other venous thrombosis and embolism; Z87.891 Personal history of nicotine dependence; Z79.82 Long term (current) use of aspirin; N20.0 Calculus of kidney; K80.20 Calculus of gallbladder without cholecystitis without obstruction; R18.8 Other ascites
CPT/HCPCS: 36415; 74177; 80053; 81001; 83605; 83690; 85025; 85610; 85730; 96361; 96374; 96375; 99284; J2270; J2405; J7030; Q9967

== ENCOUNTER 2023-10-06 09:31 | Outpatient (CLI) | payer MEDICARE, SELFPAY ==
--- NOTE | ~2023-10-06 | PE_ITS ---
EXAMINATION: PET skull to mid thigh DATE: 10/06/2023 12:34 INDICATION: Disseminated malignant neoplasm, unspecified. TECHNIQUE: Blood glucose level was 145 mg/dL. 8.7 mCi of 18-fluorodeoxyglucose (18-FDG) was administe red i.v. Low dose computed tomography (CT) images were acquired from the base of the brain to the pro ximal thighs for attenuation correction and anatomic localization. Automated exposure control was emp loyed. Dose-length product (DLP) was 1216 mGy-cm. Positron emission tomography (PET) images were acqu ired in the same distribution. COMPARISON: CT abdomen pelvis 09/28/2023, 07/29/23 FINDINGS: Head/neck: There are no pathologically enlarged lymph nodes. Chest: There are moderate-sized bilateral pleural effusions. There is increased activity at the pleur a bilaterally. Calcified right lung nodules and calcified right hilar lymph nodes are consistent with old granulomatous disease. There is dependent atelectasis bilaterally. The heart size is normal. The re are coronary artery calcifications. No pericardial effusion. There is mild bilateral gynecomastia. Abdomen/pelvis/proximal thighs: Calcifications in the liver and spleen are consistent with old granul omatous disease. There are gallstones in the gallbladder, which is normal in size. The pancreas, adre nal glands, and left kidney are normal. There are 3 stones in right kidney measuring up to 3 mm. Ther e are no dilated loops of bowel. There are scattered diverticula in the colon. There is a large volum e of ascites. There is fat stranding in the greater omentum with increased activity. There are no pat hologically enlarged lymph nodes. There are old healed fractures of right superior and inferior pubic rami. IMPRESSION: 1. Large volume of ascites. Fat stranding and increased activity in the greater omentum may be inflam mation/edema or carcinomatosis. Ultrasound-guided paracentesis is recommended. 2. Moderate-sized pleural effusions. Reviewed, dictated and finalized at location A. IMPRESSION: 1. Large volume of ascites. Fat stranding and increased activity in the greater omentum may be inflammation/edema or carcinomatosis. Ultrasound-guided paracen tesis is recommended. 2. Moderate-sized pleural effusions.
[2023-10-06 09:55] LABS: Glucose Point of Care 145 mg/dl (65-105)
== END 2023-10-06 09:32 | disposition home or self-care (01) ==
LOC: ANHIMG 09:34
PROVIDERS: PCP Family Medicine; Visit Provider Family Medicine
DX: C80.0 Disseminated malignant neoplasm, unspecified (principal); R18.8 Other ascites; C61 Malignant neoplasm of prostate; J90 Pleural effusion, not elsewhere classified
CPT/HCPCS: 78815; A9552

== ENCOUNTER → 2023-10-07 08:33 | Outpatient (REF) | payer MEDICARE, SELFPAY | LOC: ANHLAB 08:33 | PROVIDERS: PCP Family Medicine; Visit Provider Family Medicine | DX: C80.0 Disseminated malignant neoplasm, unspecified (principal); R18.8 Other ascites | CPT/HCPCS: 88108; 88305; 88342 ==

== ENCOUNTER 2023-10-09 10:21 | Outpatient (CLI) | payer MEDICARE, SELFPAY ==
--- NOTE | ~2023-10-09 | US_ITS ---
EXAMINATION: US paracentesis abd w/image DATE: 10/09/2023 11:21 INDICATION: Ascites. TECHNIQUE: The procedure and its risks, benefits, and alternatives were discussed with the patient. P otential risks discussed included bleeding and infection. The skin was prepped and draped in sterile fashion. 1% lidocaine was used for local anesthesia. Under ultrasound guidance, a 5 Fr catheter with trochar was advanced into the ascites in the left lower quadrant. Fluid was aspirated. The catheter w as removed, and a dressing was applied. There were no immediate complications. FINDINGS: Ultrasound images demonstrate ascites and the catheter within the fluid. IMPRESSION: 1. Successful ultrasound-guided paracentesis yielding 5000 mL of nam-colored fluid. Reviewed, dictated and finalized at location A.
[2023-10-09 12:21] LABS: Source Peritoneal Fluid Peritoneal Fluid
[2023-10-09 12:23] LABS: Appearance Peritoneal Fluid Hazy (Clear)
[2023-10-09 12:24] LABS: Color Peritoneal Fluid Brown (Colorless); Nucleated Cells Peritoneal Flu 656 /uL (0-500)
[2023-10-09 12:32] LABS: RBC Peritoneal Fluid 5000 /uL (0-10000)
[2023-10-09 12:34] LABS: Lymphocytes Peritoneal Fluid 47 %; Monocytes Peritoneal Fluid 5 %; Neutrophils Peritoneal Fluid 2 % (0-25)
[2023-10-09 12:35] LABS: Macrophages Peritoneal Fluid 46 %
[2023-10-13 21:08] LABS: Albumin Peritoneal Fluid 2.3 g/dL; Total Protein Peritoneal Fluid 4.4 g/dL
== END 2023-10-09 10:22 | disposition home or self-care (01) ==
LOC: ANHIMG 10:23
PROVIDERS: PCP Family Medicine; Visit Provider Family Medicine
DX: R18.8 Other ascites (principal); C80.0 Disseminated malignant neoplasm, unspecified; R93.89 Abnormal findings on diagnostic imaging of other specified body structures
CPT/HCPCS: 49083; 82042; 83615; 84157; 89051

== ENCOUNTER 2023-10-13 10:02 | Emergency (ER) | payer MEDICARE, SELFPAY ==
[2023-10-13] VITALS (37 sets, daily range): BP systolic 99–130; BP diastolic 68–96; PULSE 109–128; RESP 12–28; TEMP 36.4; O2SAT 92–97
--- NOTE | ~2023-10-13 | CT_ITS ---
CT of the Abdomen and Pelvis: Indication: Abdominal pain Technique: 2.5 mm axial scans were obtained through the abdomen and pelvis following intravenous adm inistration of 100 cc of Omnipaque 350. Dose reduction technique was used on this scan by utilizing a utomated exposure control and iterative reconstruction technique. The dose-length product (DLP) was 1 077.11 mGy-cm. COMPARISON: 09/26/2023 Findings: Scans through the lung bases demonstrates iwlqz-[id number]-qdegafob bilateral pleural effusions wi th mild bibasilar atelectasis. Small hiatal hernia. The liver, spleen, pancreas, adrenals and kidneys are within normal limits. Small gallstones are pres ent. No evidence of aortic aneurysm. No lymphadenopathy. No bowel obstruction or bowel wall thickening. Moderate to large amount of abdominopelvic ascites is present. There is extensive infiltration of the mesentery, suspicious for associated peritoneal carci nomatosis.. Images through the pelvis were performed. Urinary bladder unremarkable. No pelvic mass evident. There is mild chronic compression deformity of L2. Impression: Probable peritoneal carcinomatosis with associated moderate to large amount of abdominopelvic ascites . These findings are similar to prior exam. [place]rawl-aq-[place] bilateral pleural effusions. Cholelithiasis. Chronic L2 compression deformity. Reviewed, dictated and finalized at location . Impression: Probable peritoneal carcinomatosis with associated moderate to large amount of abdominopelvic ascites. These findings are similar to prior exam. Igfxj-[id number] bilateral pleural effusions. Cholelithiasis. Chronic L2 compression deformity.
[2023-10-13 10:24] LABS: Basophils Percent Auto 0.1 % (0.2-1.2); Hematocrit 46.6 % (42.0-52.0); Hemoglobin 15.4 g/dL (14.0-18.0); Immature Granulocyte Absolute 0.06 K/mm3 (0.00-0.031); Immature Granulocyte Percent A 0.6 % (0-0.5); Lymphocytes Absolute Auto 0.61 K/mm3 (0.9-3.2); Mean Corpuscular Volume 96.9 fl (80-100); Mean Platelet Volume 9.2 fl (7.4-10.4); Monocytes Absolute Auto 0.6 K/mm3 (0.1-0.6); Monocytes Percent Auto 6.2 % (2.6-8.5); Neutrophils Absolute Auto 8.8 K/mm3 (1.3-6.7); Neutrophils Percent Auto 87.1 % (45.5-73.1); Platelet Count Result 497 k/mm3 (150-375); Red Blood Count 4.81 M/mm3 (4.6-6.20); Red Cell Distribution Width 12.5 % (11.5-14.5); White Blood Count 10.1 K/mm3 (4.5-10.0)
[2023-10-13 10:38] LABS: INR 1.3; Prothrombin Time 16.1 Seconds (11.1-14.7)
[2023-10-13 10:39] LABS: Lactic Acid Reflex 1.9 mmol/L (0.7-2.0); Partial Thromboplastin Time 30.9 Seconds (22.3-36.8)
[2023-10-13 10:55] LABS: Alanine Aminotransferase 98 U/L (6-50); Albumin Level 3.6 g/dL (3.5-5.1); Alkaline Phosphatase 136 U/L (38-126); Anion Gap 10 mmol/L (4-12); Aspartate Amino Transferase 95 U/L (17-59); Bilirubin,Total 0.9 mg/dL (0.2-1.3); Blood Urea Nitrogen 35 mg/dL (9-20); Calcium 7.9 mg/dL (8.4-10.2); Carbon Dioxide 32 mmol/L (22-30); Chloride 85 mmol/L (98-107); Estimated CRCL calculation 51 ml/min; Estimated Glomerular Filt Rate 54; Glucose 136 mg/dL (65-110); Lipase 139 U/L (23-300); Potassium 3.7 mmol/L (3.4-5.0); Sodium 127 mmol/L (137-145)
[2023-10-13 12:02] LABS: Add Urine Microscopic? YES; Appearance Urine Clear (Clear); Bacteria Urine None Seen /hpf; Bilirubin Urine Negative (Negative); Blood Urine Negative (Negative); Color Urine Yellow (Yellow); Glucose Urine UA Negative (Negative); Ketones Urine Trace mg/dL (Negative); Leukocyte Esterase Ur Negative LEU/UL (Negative); Nitrate Urine Negative (Negative); Non Pathogenic Casts 0-2; Protein Urine 1+ mg/dL (Negative); RBC Urine 0-2 /hpf (0-2); Specific Grav Ur 1.022 (1.001-1.035); Squamous Epithelial Cell Urine None Seen /hpf (Few); WBC Urine 0-5 /hpf (0-3)
[2023-10-13] MEDS: MORPHINE SULFATE (*CRX) 4 MG/ML INJ IV PUSH ×2 (12:54→14:25)
[2023-10-13] MEDS: SODIUM CHLORIDE 0.9% IV 1,000 ML 1000 ML (12:55)
[2023-10-13] MEDS: ONDANSETRON INJ 4 MG/2 ML VIAL (12:55)
--- NOTE | 2023-10-13 12:56 | PC.NURSE ---
Provider at bedside for diagnostic thoracentesis
[2023-10-13 13:31] LABS: Source Peritoneal Fluid Peritoneal Fluid
[2023-10-13 13:32] LABS: Appearance Peritoneal Fluid Hazy (Clear); Color Peritoneal Fluid Yellow (Colorless); Lymphocytes Peritoneal Fluid 49 %; Monocytes Peritoneal Fluid 47 %; Neutrophils Peritoneal Fluid 4 % (0-25); Nucleated Cells Peritoneal Flu 689 /uL (0-500); RBC Peritoneal Fluid 5000 /uL (0-10000)
--- NOTE | 2023-10-13 13:59 | ED.ABDPAIN ---
HPI - Abdominal Pain General Chief Complaint: Abdominal Pain Stated Complaint: abd pain, vomiting Time Seen by Provider: 10/13/23 11:55 Source: patient Mode of arrival: EMS Limitations: no limitations History of Present Illness HPI narrative: This is a 73-year-old male, with history of hypertension, who presents to the emergency department complaining abdominal pain and vomiting for the past 2 weeks. The patient states he was seen in this emergency department approximately 2 weeks ago and told he had fluid in the abdomen after CT scan. He followed up with his primary care doctor had a paracentesis with removal of 5 L. In the past 2-3 days, he has had sharp abdominal pain, primarily on the left side associated with nausea and vomiting. He states he has not had a bowel movement in 3 weeks and is only able to eat ensure. He has no other complaints at this time. Related Data Home Medications Medication Instructions Recorded Confirmed B6 1.7 mg-folic 400 mcg-B12 2.4 1 cap PO DAILY 03/19/23 09/25/23 wkd-havaam-hwcpvvwnebtk oral capsule (Neuriva Plus [employer]) cholecalciferol (vitamin D3) 25 100 mcg PO DAILY 03/19/23 09/25/23 mcg (1,000 unit) capsule mecobalamin (vitamin B12) 1,000 2,000 mcg PO DAILY 03/19/23 09/25/23 mcg lozenges vitamin E (dl, acetate) 180 mg 180 mg PO DAILY 03/19/23 09/25/23 (400 unit) capsule zinc gluconate 50 mg tablet 50 mg PO DAILY 03/19/23 09/25/23 Selenex 1 cap PO DAILY 09/25/23 09/25/23 acetaminophen 650 mg 650 mg PO Q12H 09/25/23 09/25/23 tablet,extended release ascorbic acid (vitamin C) 1,000 mg 1,000 mg PO DAILY 09/25/23 09/25/23 tablet (Vitamin C) coffee extract 100 mg-phosphatidyl 1 cap PO DAILY 09/25/23 09/25/23 serine 100 mg capsule (Neuriva Original) fiber 4 cap PO DAILY 09/25/23 09/25/23 omeprazole 20 mg capsule,delayed 20 mg PO DAILY PRN REFLUX 09/25/23 09/25/23 release Allergies Allergy/AdvReac Type Severity Reaction Status Date / Time naproxen Allergy Unknown SWELLING,FL Verified 10/13/23 10:12 USHING Review of Systems Review of Systems: All systems reviewed & are unremarkable except as noted in HPI and below PMFSH Past Medical History Medical History Acute blood loss anemia Benign prostatic hyperplasia Deep vein thrombosis of left lower extremity (2016) Degenerative arthritis of knee, bilateral Gastroesophageal reflux disease Gout Hyperlipidemia Hypertension Kidney stones Obstructive sleep apnea Mild sleep apnea. No longer using CPAP after weight loss. 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 Code status: Full code. Smoking packs per day: 1 Smoking cigarettes per day: 20.0 Years smoked: 54 Smoking pack-years: 54.00 Smoking status: Former smoker Tobacco type: cigarettes Second hand tobacco smoke exposure: No Smoking end date: 04/20/22 Alcohol intake: former Substance use: never Substance use type: does not use Do You Feel Safe in your Home?: Yes Lack of Transportation: No Lack of Food: Never True Current Housing: I Have Housing Concerned About Future Housing: No Difficulty Paying Gas/Electric Bills: No Difficulty Paying for Meds: No
[2023-10-13] MEDS: CALCIUM GLUCONATE 1,000 MG/10 ML VIAL 1000 MG IV PUSH (14:47)
[2023-10-13] MEDS: SODIUM CHLORIDE 0.9% IV 50 ML 100 ML (15:34)
--- NOTE | 2023-10-13 18:41 | PC.NURSE ---
Patient able to ambulate to the restroom with assistance from walker
[2023-10-13] MEDS: ONDANSETRON INJ 4 MG/2 ML VIAL IV PUSH (20:02)
--- NOTE | 2023-10-13 21:34 | PC.NURSE ---
2030: hospital bed brought down for pt, lights dimmed for pt.
[2023-10-16 20:28] LABS: Glucose Peritoneal Fluid 71 mg/dL
[2023-10-17 13:48] LABS: Lipase Peritoneal Fluid 10 U/L (<10)
[2023-10-21 19:34] LABS: LDH Peritoneal Fluid 1265 U/L (<63)
== END 2023-10-14 00:25 | disposition short-term general hospital (02) ==
PROVIDERS: Emergency Medicine; Emergency Provider Preventive Medicine Aerospace Medicine; PCP Family Medicine
DX: C80.0 Disseminated malignant neoplasm, unspecified (principal); R18.0 Malignant ascites; R10.9 Unspecified abdominal pain; I10 Essential (primary) hypertension; E78.5 Hyperlipidemia, unspecified; Z87.891 Personal history of nicotine dependence
CPT/HCPCS: 36415; 74177; 80053; 81001; 82945; 83605; 83615; 83690; 84157; 85025; 85610; 85730; 87040; 87205; 89051; 96361; 96365; 96375; 96376; 99285; J0612; J0696; J2270; J2405; J7030; Q9967